=== PATIENT | female | born 1995 | race Caucasian/White ===

== ENCOUNTER 2018-04-04 18:35 | Emergency (ER) | payer MEDICAID, SELFPAY ==
[2018-04-04 18:42] VITALS: BP 161/82; PULSE 92; RESP 18; TEMP 36.7; O2SAT 98
--- NOTE | 2018-04-04 19:02 | W.ED.GENAD ---
Discharge Plan Disposition Patient Disposition: HOME Condition: Stable Discharge Details Chief Complaint: EarProblem Clinical Impression: Acute right otitis media Primary Care Provider: Saman Veras ED Provider: Hussain Perdomo Home Meds and New Rx's Prescriptions: New amoxicillin 875 mg tablet 875 mg PO BID Qty: 14 RF: 0 Continue levonorgestrel-ethinyl estrad [Introvale] 0.15 mg-30 mcg Tablets,Dose Pack,3 Month 1 tab PO DAILY RF: 0 Discharge Instructions Instructions: Otitis Media (ED) Additional Instructions: Please take antibiotic as prescribed and until complete and do not save your antibiotics. You may take [id number] pain therapy as needed for discomfort and follow-up with your primary care provider if not improving over the next week. Referrals: Saman Veras [Primary Care Provider] - (as needed for reassessment if not improving in 1 week) Discharge Data Discharge Date/Time-TO BE ENTERED AT DEPARTURE: 04/04/18 19:25 Medical Decision Making Patient presenting the emergency department for chief complaint of right ear pain. Patient states for the past week she has had upper respiratory nasal congestion. Over the past 2 days she has noted some fullness in her right ear and then this evening increase in discomfort. Physical exam is positive for right otitis media otherwise no other acute findings no signs of mastoiditis no other emergent concerns at this time. Patient placed on amoxicillin and told to take [id number]-[id number] pain medication as needed for discomfort. Patient follow-up with primary care if not improving over the next week or return for any new or significant worsening symptoms. After discussion of diagnosis and plan of care patient has no further needs, questions, or concerns and states clear understanding to return to the emergency department for any worsening symptoms. HPI General Mode of arrival: ambulatory. Date/Time Provider Initiated Documentation: 04/04/18 18:52. Limitations to Documentation: no limitations. Information obtained by: patient and RN notes reviewed. History of Present Illness 23 year old F presents to the emergency department with the chief complaint of right ear pain, described as moderate, with intensity rated at 6. Quality is described as aching, and is localized to the right (ear). Patient reports no radiation. Patient started experiencing this day(s) (2) and it has been constant. No relieving factors improve symptom(s), No exacerbating factors reported . Patient did receive the following treatments prior to arrival, none Related Data Home Medications Medication Instructions Recorded Confirmed amoxicillin 875 mg PO BID #14 tab 04/04/18 levonorgestrel-ethinyl estrad 1 tab PO DAILY 04/04/18 04/04/18 [Introvale] Previous Rx's Medication Instructions Recorded amoxicillin 875 mg PO BID #14 tab 04/04/18 Allergies Allergy/AdvReac Type Severity Reaction Status Date / Time sulfacetamide AdvReac Intermediate Itching Unverified 04/04/18 18:47 General Stated Complaint: EarProblem DG: 4 Review of Systems Constitutional Denies body ache(s), Denies chills, Denies fever(s), Denies headache(s) and Denies malaise Eyes Reports eye discharge ENT Reports as per HPI, Reports abnormal hearing, Denies dysphagia, Denies vertigo, Reports otalgia, Denies headache(s), Reports nasal congestion, Denies neck pain, Reports sinus pressure and Reports sore throat Cardiovascular Denies chest pain and Denies dyspnea Respiratory Denies dyspnea Gastrointestinal Denies dysphagia Musculoskeletal Denies joint swelling and Denies neck pain Integumentary/Breasts Denies rash Neurologic Reports abnormal hearing, Denies vertigo and Denies headache(s) [facility] Social History Smoking/Tobacco Use Status: Current every day Social History Smoking/Tobacco Use Status: Current every day Exam Const General: cooperative, comfortable and no acute distress Orientation: alert and awake [facility] Head: normal to inspection, normocephalic and atraumatic Ears: hearing grossly normal bilaterally, EAC's normal, mastoids normal and TM abnormal bulging on the right and erythematous on the right General nose exam: external nose normal Face and sinus: normal facial exam and sinuses nontender Mouth: oral mucosae normal, no drooling, no muffled voice and no trismus Throat: posterior oropharynx normal Neck Neck: normal visual inspection, full ROM, no lymphadenopathy, no meningeal signs, trachea midline and supple Resp Effort & Inspection: normal respiratory effort and able to speak in complete sentences Skin General skin exam: no rashes or lesions noted and dry skin (warm) Neuro General: alert, awake, oriented x3, gait normal and moves all extremities Cognition: normal cognition Speech: speech normal Course Vital Signs Temperature 36.7 C 04/04/18 18:42 Pulse 92 H 04/04/18 18:42 Respiratory Rate 18 04/04/18 18:42 Blood Pressure 161/82 H 04/04/18 18:42 Pulse Oximetry 98 04/04/18 18:42 Temperature 36.7 C 04/04/18 18:42 Temperature Source Skin 04/04/18 18:42 Pulse 92 H 04/04/18 18:42 Respiratory Rate 18 04/04/18 18:42 Respiratory Effort 04/04/18 18:42 Blood Pressure 161/82 H 04/04/18 18:42 Blood Pressure Position Sitting 04/04/18 18:42 Pulse Oximetry 98 04/04/18 18:42 Pain Level 6 04/04/18 18:42 Comment 04/04/18 18:42
[2018-04-04] MEDS: Amoxicillin 875 MG TAB PO (19:07)
--- NOTE | 2018-04-04 19:11 | ED.GENADUL_ITS ---
Discharge Plan Disposition Patient Disposition: HOME Condition: Stable Discharge Details Chief Complaint: EarProblem Clinical Impression: Acute right otitis media Primary Care Provider: Saman Veras ED Provider: Hussain Perdomo Home Meds and New Rx's Prescriptions: New amoxicillin 875 mg tablet 875 mg PO BID Qty: 14 RF: 0 Continue levonorgestrel-ethinyl estrad [Introvale] 0.15 mg-30 mcg Tablets,Dose Pack,3 Month 1 tab PO DAILY RF: 0 Discharge Instructions Instructions: Otitis Media (ED) Additional Instructions: Please take antibiotic as prescribed and until complete and do not save your antibiotics. You may take [id number] pain therapy as needed for discomfort and follow-up with your primary care provider if not improving over the next week. Referrals: Saman Veras [Primary Care Provider] - (as needed for reassessment if not improving in 1 week) Discharge Data Discharge Date/Time-TO BE ENTERED AT DEPARTURE: 04/04/18 19:25 Medical Decision Making Patient presenting the emergency department for chief complaint of right ear pain. Patient states for the past week she has had upper respiratory nasal congestion. Over the past 2 days she has noted some fullness in her right ear and then this evening increase in discomfort. Physical exam is positive for right otitis media otherwise no other acute findings no signs of mastoiditis no other emergent concerns at this time. Patient placed on amoxicillin and told to take [id number]-trybcsl pain medication as needed for discomfort. Patient follow-up with primary care if not improving over the next week or return for any new or significant worsening symptoms. After discussion of diagnosis and plan of care patient has no further needs, questions, or concerns and states clear understanding to return to the emergency department for any worsening symptoms. HPI General Mode of arrival: ambulatory . Date/Time Provider Initiated Documentation: 04/04/18 18:52 . Limitations to Documentation: no limitations . Information obtained by: patient and RN notes reviewed . History of Present Illness 23 year old F presents to the emergency department with the chief complaint of right ear pain, described as moderate, with intensity rated at 6. Quality is described as aching, and is localized to the right (ear). Patient reports no radiation. Patient started experiencing this day(s) (2) and it has been constant. No relieving factors improve symptom(s), No exacerbating factors reported . Patient did receive the following treatments prior to arrival, none Related Data Home Medications Medication Instructions Recorded Confirmed amoxicillin 875 mg PO BID #14 tab 04/04/18 levonorgestrel-ethinyl estrad 1 tab PO DAILY 04/04/18 04/04/18 [Introvale] Previous Rx's Medication Instructions Recorded amoxicillin 875 mg PO BID #14 tab 04/04/18 Allergies Allergy/AdvReac Type Severity Reaction Status Date / Time sulfacetamide AdvReac Intermediate Itching Unverified 04/04/18 18:47 General Stated Complaint: EarProblem DG: 4 Review of Systems Constitutional Denies body ache(s), Denies chills, Denies fever(s), Denies headache(s) and Denies malaise Eyes Reports eye discharge ENT Reports as per HPI, Reports abnormal hearing, Denies dysphagia, Denies vertigo, Reports otalgia, Denies headache(s), Reports nasal congestion, Denies neck pain , Reports sinus pressure and Reports sore throat Cardiovascular Denies chest pain and Denies dyspnea Respiratory Denies dyspnea Gastrointestinal Denies dysphagia Musculoskeletal Denies joint swelling and Denies neck pain Integumentary/Breasts Denies rash Neurologic Reports abnormal hearing, Denies vertigo and Denies headache(s) [facility] Social History Smoking/Tobacco Use Status: Current every day Social History Smoking/Tobacco Use Status: Current every day Exam Const General: cooperative, comfortable and no acute distress Orientation: alert and awake [facility] Head: normal to inspection, normocephalic and atraumatic Ears: hearing grossly normal bilaterally, EAC's normal, mastoids normal and TM abnormal bulging on the right and erythematous on the right General nose exam: external nose normal Face and sinus: normal facial exam and sinuses nontender Mouth: oral mucosae normal, no drooling, no muffled voice and no trismus Throat: posterior oropharynx normal Neck Neck: normal visual inspection, full ROM, no lymphadenopathy, no meningeal signs , trachea midline and supple Resp Effort & Inspection: normal respiratory effort and able to speak in complete sentences Skin General skin exam: no rashes or lesions noted and dry skin (warm) Neuro General: alert, awake, oriented x3, gait normal and moves all extremities Cognition: normal cognition Speech: speech normal Course Vital Signs Temperature 36.7 C 04/04/18 18:42 Pulse 92 H 04/04/18 18:42 Respiratory Rate 18 04/04/18 18:42 Blood Pressure 161/82 H 04/04/18 18:42 Pulse Oximetry 98 04/04/18 18:42 Temperature 36.7 C 04/04/18 18:42 Temperature Source Skin 04/04/18 18:42 Pulse 92 H 04/04/18 18:42 Respiratory Rate 18 04/04/18 18:42 Respiratory Effort 04/04/18 18:42 Blood Pressure 161/82 H 04/04/18 18:42 Blood Pressure Position Sitting 04/04/18 18:42 Pulse Oximetry 98 04/04/18 18:42 Pain Level 6 04/04/18 18:42 Comment 04/04/18 18:42
== END 2018-04-04 19:25 | disposition home or self-care (01) ==
LOC: ER 19:36
PROVIDERS: Emergency Provider Nurse Practitioner Family; PCP Family Medicine
DX: H66.91 Otitis media, unspecified, right ear (principal)
CPT/HCPCS: 99283

== ENCOUNTER 2018-06-09 11:36 | Emergency (ER) | payer MEDICAID, SELFPAY ==
--- NOTE | 2018-06-09 11:56 | NUR.NOTE ---
pt has had sore throat, fever 101+ left ear pain/pressure past 3 days
[2018-06-09 11:57] VITALS: BP 130/89; PULSE 99; RESP 16; TEMP 36.4; O2SAT 95
--- NOTE | 2018-06-09 12:24 | ED.GENADUL_ITS ---
Discharge Plan Disposition Patient Disposition: HOME Condition: Stable Discharge Details Chief Complaint: Fever Clinical Impression: Otitis media Primary Care Provider: Saman Veras ED Provider: Yesika Alanis Home Meds and New Rx's Prescriptions: New amoxicillin-pot clavulanate [Augmentin] 875-125 mg tablet 1 tab PO BID Qty: 19 RF: 0 Continued levonorgestrel-ethinyl estrad [Introvale] 0.15 mg-30 mcg Tablets,Dose Pack,3 Month 1 tab PO DAILY RF: 0 Discharge Instructions Instructions: Amoxicillin/Clavulanate Potassium (By mouth), Otitis Media (ED) Additional Instructions: Please return immediately to the emergency department if you develop any new or worsening symptoms or if you become otherwise concerned. It is extremely important that you make an appointment to be seen by your primary care doctor as soon as possible in follow-up for this visit Referrals: Saman Veras [Primary Care Provider] - Discharge Data Discharge Date/Time-TO BE ENTERED AT DEPARTURE: 06/09/18 13:21 Medical Decision Making Dc Vanegas is a 23-year-old woman with history of anxiety, recurrent ear infections presenting to the emergency department with left-sided ear pain. On exam patient is very well and nontoxic appearing. Normal oropharynx. Left TM appears infected. Mastoids normal bilaterally. Exam/history is not consistent with meningitis, mastoiditis, sepsis, abscess/other deep space infection, other acute emergent life-threatening etiology. Concern for otitis media. Plan for Augmentin. I had a lengthy discussion with the patient regarding return to emergency department precautions, home care, and importance of outpatient follow-up with her primary care doctor. Patient verbalized understanding of the plan and is amenable. Medical Records Medical records reviewed: Yes I reviewed the patient's medical records. HPI General Mode of arrival: ambulatory . Date/Time Provider Initiated Documentation: 06/09/18 12:23 . Limitations to Documentation: no limitations . Information obtained by: patient, RN notes reviewed and old records reviewed . HPI Narrative: Dc Vanegas is a 23 y/o woman with history of anxiety pre senting to the emergency department with left ear pain. Patient reports that she has had a history of recurrent ear infections as a child, and also as an adult. Last ear infections were approximate 1 year ago, and then again this past March. She reports that she has had several days of left-sided ear pain. Initially also had sore throat when her pain started, which is now resolved. Patient reports that she did have a fever yesterday to 101. No other fevers. She denies any other pain, difficulty swallowing, nausea/vomiting/diarrhea, weakness/tingling. Feels otherwise well and in her usual state of health. Has been eating and drinking as usual. Related Data Home Medications Medication Instructions Recorded Confirmed levonorgestrel-ethinyl estrad 1 tab PO DAILY 04/04/18 06/09/18 [Introvale] amoxicillin-pot clavulanate 1 tab PO BID #19 tab 06/09/18 [Augmentin] Previous Rx's Medication Instructions Recorded amoxicillin-pot clavulanate 1 tab PO BID #19 tab 06/09/18 [Augmentin] Allergies Allergy/AdvReac Type Severity Reaction Status Date / Time sulfacetamide AdvReac Intermediate Itching Unverified 06/09/18 12:00 General Stated Complaint: Fever DG: 3 Review of Systems Review of Systems Constitutional: denies fevers Eyes: denies eye pain ENT: denies facial pain, dental pain, reports ear pain, sore throat Cardiovascular: denies chest pain, edema Respiratory: denies SOB, cough GI: denies abdominal pain, vomiting, diarrhea : denies flank pain MSK: denies back pain, neck pain, arthralgias, myalgias Skin: denies rash Neuro: denies headaches, numbness, weakness PFSH Social History Smoking and Tabacco status: Current every day Exam Narrative Exam Narrative: Constitutional: well and phq-nupia-bqpkzyfeu, pleasant, conversing normally HENT: head atraumatic, normocephalic normal inspection, mucous membranes moist, normal posterior pharynx no erythema or edema, left TM injected, dull, bulging, left canal normal, right TM and canal normal, mastoids nontender to palpation and nonedematous bilaterally Eyes: conjunctiva normal, sclera normal, pupils 3mm b/l Neck: no stridor, normal ROM, trachea midline Resp: normal work of breathing, LCTAB Cardio: normal rate, normal rhythm, no murmur appreciated Skin: warm, dry, normal color, no rash Neuro: alert, not altered, grossly non-focal, normal tone Ext: Moving all extremities equally Psych: normal mood, normal affect, normal behavior Course Vital Signs Temperature 36.4 C L 06/09/18 11:57 Pulse 99 H 06/09/18 11:57 Respiratory Rate 16 06/09/18 11:57 Blood Pressure 130/89 06/09/18 11:57 Pulse Oximetry 95 06/09/18 11:57 Temperature 36.4 C L 06/09/18 11:57 Temperature Source Skin 06/09/18 11:57 Pulse 99 H 06/09/18 11:57 Respiratory Rate 16 06/09/18 11:57 Blood Pressure 130/89 06/09/18 11:57 Blood Pressure Position Sitting 06/09/18 11:57 Pulse Oximetry 95 06/09/18 11:57 Oxygen Delivery Method Room Air 06/09/18 11:57 Oxygen Flow Rate 0 06/09/18 11:57 Pain Level 5 06/09/18 11:57
[2018-06-09] MEDS: Amoxicillin 875/Clav. 125 TAB PO (13:19)
== END 2018-06-09 13:21 | disposition home or self-care (01) ==
LOC: ER 13:31
PROVIDERS: Emergency Provider Student in an Organized Health Care Education/Training Program; PCP Family Medicine
DX: H66.92 Otitis media, unspecified, left ear (principal); F17.210 Nicotine dependence, cigarettes, uncomplicated
CPT/HCPCS: 99283

== ENCOUNTER 2018-11-03 01:17 | Emergency (ER) | payer MEDICAID, SELFPAY ==
[2018-11-03] VITALS (20 sets, daily range): BP systolic 105–139; BP diastolic 70–91; PULSE 49–78; RESP 8–21; TEMP 36.5–36.7; O2SAT 94–100
--- NOTE | 2018-11-03 01:32 | ED.GENADUL_ITS ---
Discharge Plan Disposition Patient Disposition: HOME Condition: Improving Discharge Details Chief Complaint: Chest Pain Clinical Impression: Panic attack Primary Care Provider: Saman Veras ED Provider: Keira Joel Home Meds and New Rx's Prescriptions: Continued levonorgestrel-ethinyl estrad [Introvale] 0.15 mg-30 mcg Tablets,Dose Pack,3 Month 1 tab PO DAILY RF: 0 Discharge Instructions Instructions: Panic Attack (ED) Additional Instructions: Take the Ativan as needed and directed for any further symptoms similar to your panic attacks. Drink plenty fluids and get plenty of rest. Follow-up with your primary care doctor next week for reevaluation and to discuss medication management of your anxiety. Return immediately to the emergency department with any worsening or new concerning symptoms. Discharge Data Discharge Date/Time-TO BE ENTERED AT DEPARTURE: 11/03/18 03:10 Discharge Physician: Keira Joel Medical Decision Making 0130 --23-year-old female with a history of anxiety and panic attacks who presents the ED with a complaint of chest tightness, shortness of breath, facial and bilateral hand tingling that started 1 hour ago while laying in bed. EKG done on arrival notes a rate of 70, sinus and no acute ST-T wave ischemic changes. Vitals within normal limits. No tachycardia, hypoxia and patient is afebrile. She appears very anxious. Lungs clear to auscultation. Normal ENT exam. No focal deficits. Exam and history not consistent with ACS, pneumonia, PE or dissection. Exam and history consistent with anxiety/panic attack. Urine test negative. At this point in time with normal vitals and exam, do not see an indication for labs and imaging. Will give a dose of Ativan and reassess. 0240 --patient feels much better and she is requesting to go home. She was offered lab work and imaging if her symptoms do not improve but she is declining this and would like to go home. She denies any complaint of paresthesias, chest pain or shortness of breath. Vitals within normal limits. Patient instructed to call her primary care doctor tomorrow to schedule a follow-up appointment for reevaluation and for medication management of her anxiety. She states she had taken BuSpar in the past but it made her feel dizzy so she stopped it. She is instructed to return here if she has any worsening or new concerning symptoms. Medical Records Medical records reviewed: Yes I reviewed the patient's medical records. ECG Data Attestation: I personally reviewed and interpreted this ECG (s) as follows: Interpretation: Rate of 70, sinus, no acute ST T wave ischemic changes. QTc 425. QRS 90 HPI General Mode of arrival: ambulatory . Date/Time Provider Initiated Documentation: 11/03/18 01:31 . Limitations to Documentation: no limitations . Information obtained by: patient . HPI Narrative: Patient is a 23-year-old female who presents to the ED with complaint of bilateral hand tingling, chest tightness, shortness of breath and tingling in her face that started 1 hour ago while laying in bed. Patient states she went to bed feeling fine. Patient states she has a history of anxiety and states her symptoms feel similar to a previous panic attack. She states yesterday she drank a 10 alcoholic drinks over a period of 12 hours. She admits to a chronic cough which she states due to allergies. She denies any fever, vomiting, diarrhea, recent travel, recent surgery, leg pain or swelling. Related Data Home Medications Medication Instructions Recorded Confirmed levonorgestrel-ethinyl estrad 1 tab PO DAILY 04/04/18 11/03/18 [Introvale] Allergies Allergy/AdvReac Type Severity Reaction Status Date / Time sulfacetamide AdvReac Intermediate Itching Unverified 11/03/18 01:29 General Stated Complaint: Chest Pain DG: 3 Review of Systems Review of Systems All systems reviewed & are unremarkable except as noted in HPI and below Constitutional Reports as per HPI, Denies chills and Denies fever(s) Eyes Denies blurry vision ENT Denies dizziness, Denies sore throat and Denies throat swelling Cardiovascular Reports chest pain and Reports dyspnea Respiratory Denies cough and Reports dyspnea Gastrointestinal Denies abdominal pain, Denies diarrhea and Denies vomiting Genitourinary Denies hematuria and Denies dysuria Musculoskeletal Denies back pain and Reports numbness Integumentary/Breasts Denies lesions and Denies rash Neurologic Denies dizziness, Reports focal weakness and Reports numbness Allergic/Immunologic Denies throat swelling PFS Medical History Anxiety (Chronic) Surgical History History of ankle surgery (Acute) Social History Smoking/Tobacco Use Status: Current every day Tobacco Type: cigarettes Alcohol Intake: current Alcohol Intake frequency: a few times a month Drug use: Never Do you feel safe in your relationship?: Yes Exam Const General: cooperative, healthy appearing and anxious HENMT Head: normal to inspection Face and sinus: normal facial exam Eyes General: appearance normal, both eyes and all related structures Pupils: PERRL EOM: EOM intact bilaterally Neck Neck: normal visual inspection and No submandibular swelling Lymphatic: no lymphadenopathy noted Chest Chest: normal inspection of the chest and no tenderness Resp Effort & Inspection: normal respiratory effort and able to speak in complete sentences Auscultation: clear to auscultation bilaterally Cardio Rate: regular rate Rhythm: regular rhythm GI Inspection: normal to inspection Palpation: soft, not firm, not rigid and nontender Auscultation: normal bowel sounds Back/Spine/Pelvis Thoracic/Lumbar Spine: thoracic and lumbar spine normal to inspection Pelvis: no pain with anterior-posterior compression Skin General skin exam: no rashes or lesions noted Neuro General: alert, awake, oriented x3, gait normal and moves all extremities Cranial Nerves: CN's II-XI intact bilaterally Cognition: normal cognition Speech: speech normal Motor: muscle tone normal throughout and strength 5/5 throughout Sensory Exam: no sensory deficits noted Extrem General: normal to inspection, full ROM, normal capillary refill, no calf tenderness bilaterally and no edema Psych Appearance: grossly normal Mental Status: mental status grossly normal Speech and Movement: speech and movement normal Affect: normal affect Course Vital Signs Temperature 98.1 F 11/03/18 01:26 Pulse 60 11/03/18 01:26 Respiratory Rate 16 11/03/18 01:26 Blood Pressure 129/85 11/03/18 01:26 Pulse Oximetry 100 11/03/18 01:26 Temperature 98.1 F 11/03/18 01:26 Temperature Source Skin 11/03/18 01:26 Pulse 60 11/03/18 01:26 Respiratory Rate 16 11/03/18 01:26 Respiratory Effort Non-Labored 11/03/18 01:28 Blood Pressure 129/85 11/03/18 01:26 Blood Pressure Position Supine 11/03/18 01:26 Pulse Oximetry 100 11/03/18 01:26 Oxygen Delivery Method Room Air 11/03/18 01:26 Oxygen Flow Rate 0 11/03/18 01:26 Pain Level 8 11/03/18 01:26
[2018-11-03] MEDS: LORazepam 1 MG TAB PO (01:54)
[2018-11-03] MEDS: LORazepam 0.5 MG TAB 1 MG PO (03:09)
== END 2018-11-03 03:10 | disposition home or self-care (01) ==
LOC: ER 03:16
PROVIDERS: Emergency Provider Physician Assistant; PCP Family Medicine
DX: F41.0 Panic disorder [episodic paroxysmal anxiety] (principal); R20.2 Paresthesia of skin; R06.02 Shortness of breath; F17.210 Nicotine dependence, cigarettes, uncomplicated
CPT/HCPCS: 81025; 93005; 99284; 93010; 99285

== ENCOUNTER 2019-04-22 12:25 | Emergency (ER) | payer MEDICAID, SELFPAY ==
[2019-04-22 12:30] VITALS: BP 146/70; PULSE 87; RESP 16; TEMP 36.6; O2SAT 100
--- NOTE | 2019-04-22 12:39 | W.ED.GENAD ---
Discharge Plan Disposition Patient Disposition: HOME Condition: Stable Discharge Details Chief Complaint: Sorethroat Clinical Impression: Pharyngitis Primary Care Provider: Saman Veras ED Provider: Neftali Salazar Home Meds and New Rx's Prescriptions: New amoxicillin-pot clavulanate [Augmentin] 875-125 mg tablet 1 tab PO Q12H Qty: 20 RF: 0 Continued buspirone 10 mg Tablet 10 mg PO RF: 0 No Action levonorgestrel-ethinyl estrad [Introvale] 0.15 mg-30 mcg Tablets,Dose Pack,3 Month 1 tab PO DAILY RF: 0 Discharge Instructions Instructions: Pharyngitis (ED) Additional Instructions: if you still have discomfort in a week follow up with your primary care provider if you have difficulty swallowing liquids or breathing return to the emergency department Medical Decision Making 24 yo female comes in with several days of sore throat. She states she was on penicillin 2 weeks ago for strep through her pcp's office. Her throat pain returned again so came here for an eval. 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 Appears to be phrayngitis, will check for strep and if positive treat. ADvised f/u with pcp if not better within a week and return precautions given Differential Diagnosis Differential Diagnosis: pharyngitis, strep, rpa, waitstaff captain HPI General Mode of arrival: ambulatory. Date/Time Provider Initiated Documentation: 04/22/19 12:27. Limitations to Documentation: no limitations. Information obtained by: patient. History of Present Illness 24 year old F presents to the emergency department with the chief complaint of sore throat, described as moderate, Patient started experiencing this day(s) (2) and it has been constant. No relieving factors improve symptom(s), No exacerbating factors reported . Patient did receive the following treatments prior to arrival, none Related Data Home Medications Medication Instructions Recorded Confirmed levonorgestrel-ethinyl estrad 1 tab PO DAILY 04/04/18 04/22/19 [Introvale] amoxicillin-pot clavulanate 1 tab PO Q12H #20 tab 04/22/19 [Augmentin] buspirone 10 mg PO 12/18/19 Previous Rx's Medication Instructions Recorded amoxicillin-pot clavulanate 1 tab PO Q12H #20 tab 04/22/19 [Augmentin] Allergies Allergy/AdvReac Type Severity Reaction Status Date / Time sulfacetamide AdvReac Intermediate Itching Unverified 11/03/18 01:29 General Stated Complaint: Sorethroat DG: 4 Review of Systems All systems reviewed & are unremarkable except as noted in HPI and below Constitutional Constitutional: Denies chills and Denies fever(s) Cardiovascular Cardiovascular: Denies chest pain and Denies dyspnea Respiratory Respiratory: Denies cough and Denies dyspnea Gastrointestinal Gastrointestinal: Denies abdominal pain, Denies nausea and Denies vomiting Musculoskeletal Musculoskeletal: Denies joint swelling [facility] Social History Smoking/Tobacco Use Status: Current every day Tobacco Type: cigarettes Alcohol Intake: current Alcohol Intake frequency: a few times a month Drug use: Never Do you feel safe in your relationship?: Yes Exam Const General: no acute distress Orientation: alert HENMT Head: normal to inspection Ears: external ears normal General nose exam: external nose normal Mouth: moist mucous membranes Eyes General: appearance normal, both eyes and all related structures Neck Neck: normal visual inspection Resp Effort & Inspection: normal respiratory effort and able to speak in complete sentences Cardio Rate: regular rate Skin General skin exam: no rashes or lesions noted Neuro General: alert and oriented x3 Extrem General: normal to inspection Psych Mental Status: mental status grossly normal Course Vital Signs Vital signs: Vital Signs Temperature 36.6 C 04/22/19 12:30 Pulse 87 04/22/19 12:30 Respiratory Rate 16 04/22/19 12:30 Blood Pressure 146/70 H 04/22/19 12:30 Pulse Oximetry 100 04/22/19 12:30 Temperature 36.6 C 04/22/19 12:30 Temperature Source Temporal Artery Scan 04/22/19 12:30 Pulse 87 04/22/19 12:30 Respiratory Rate 16 04/22/19 12:30 Blood Pressure 146/70 H 04/22/19 12:30 Pulse Oximetry 100 04/22/19 12:30 Oxygen Delivery Method Room Air 04/22/19 12:30 Oxygen Flow Rate 0 04/22/19 12:30
== END 2019-04-22 12:48 | disposition home or self-care (01) ==
LOC: ER 13:03
PROVIDERS: Emergency Provider Emergency Medicine; PCP Family Medicine
DX: J02.0 Streptococcal pharyngitis (principal); F17.210 Nicotine dependence, cigarettes, uncomplicated
CPT/HCPCS: 87880; 99283

== ENCOUNTER 2019-06-29 03:20 | Emergency (ER) | payer MEDICAID, SELFPAY ==
[2019-06-29 03:25] VITALS: BP 135/82; PULSE 112; RESP 16; TEMP 36.9; O2SAT 97
--- NOTE | 2019-06-29 03:27 | ED.GENADUL_ITS ---
Discharge Plan Disposition Patient Disposition: HOME Condition: Stable Discharge Details Chief Complaint: RespSymp Clinical Impression: Influenza Primary Care Provider: Saman Veras ED Provider: Neftali Salazar Home Meds and New Rx's Prescriptions: New ondansetron 4 mg tablet,disintegrating 4 mg PO Q8H PRN (Reason: nausea and vomiting) Qty: 20 RF: 0 Continued buspirone 10 mg Tablet 10 mg PO RF: 0 Discharge Instructions Instructions: Influenza (ED) Additional Instructions: if you are not better within 5 days follow up with your primary care provider if you feel significantly more pain, difficulty breathing or feel more ill return to the emergency department Medical Decision Making 24 yo female who denies chronic medical problems comes in with chief complaint of body aches, chills, cough, n/v and fever intermittently to 103 for 3 days. 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 She denies any recent travel, drug use, does smoke and drinks occasionally. She arrives HD stable and afebrile, does have clear rhinorrhea on exam, clear lungs, soft nontender abdomen, normal oropharynx, no meningisumus and no severe headaches. 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 She Has no findings on exam or history to suggest sustainable [employer] faculty infection, pna, intrabdominal pathology. I did offer to provide IVF but she declined as she states she wants to go home and sleep and needs a work note. I provided the patient return precautions and advised to f/u with pcp if not better within a week Differential Diagnosis Differential Diagnosis: influenza, viral uri, pna HPI General Mode of arrival: ambulatory . Date/Time Provider Initiated Documentation: 06/29/19 03:20 . Limitations to Documentation: no limitations . Information obtained by: patient . History of Present Illness 24 year old F presents to the emergency department with the chief complaint of fever and body aches, described as moderate, Patient started experiencing this day(s) (3) and it has been intermittent. No relieving factors improve symptom(s), No exacerbating factors reported . Patient notes cough and nausea/vomiting. Patient did receive the following treatments prior to arrival, none Related Data Home Medications Medication Instructions Recorded Confirmed buspirone 10 mg PO 04/22/19 ondansetron 4 mg PO Q8H PRN #20 tab 06/29/19 Previous Rx's Medication Instructions Recorded ondansetron 4 mg PO Q8H PRN #20 tab 06/29/19 Allergies Allergy/AdvReac Type Severity Reaction Status Date / Time sulfacetamide AdvReac Intermediate Itching Unverified 11/03/18 01:29 General Stated Complaint: RespSymp DG: 4 Review of Systems All systems reviewed & are unremarkable except as noted in HPI and below Cardiovascular Cardiovascular: Denies chest pain and Denies dyspnea Respiratory Respiratory: Denies dyspnea Gastrointestinal Gastrointestinal: Denies abdominal pain Integumentary/Breasts Skin/Breast: Denies rash PFSH Social History Smoking/Tobacco Use Status: Current every day Tobacco Type: cigarettes Alcohol Intake: current Alcohol Intake frequency: a few times a month Drug use: Never Do you feel safe at home: Yes Do you feel safe in your relationship?: Yes Exam Const General: no acute distress Orientation: alert HENMT Head: normal to inspection Ears: external ears normal General nose exam: external nose normal Mouth: moist mucous membranes Eyes General: appearance normal, both eyes and all related structures Neck Neck: normal visual inspection Resp Effort & Inspection: normal respiratory effort and able to speak in complete sentences Cardio Rate: regular rate ('hr 98 on my exam) and tachycardic Skin General skin exam: no rashes or lesions noted Neuro General: alert and oriented x3 Extrem General: normal to inspection Psych Mental Status: mental status grossly normal Course Vital Signs Vital signs: Vital Signs Temperature 36.9 C 06/29/19 03:25 Pulse 112 H 06/29/19 03:25 Respiratory Rate 16 06/29/19 03:25 Blood Pressure 135/82 06/29/19 03:25 Pulse Oximetry 97 06/29/19 03:25 Temperature 36.9 C 06/29/19 03:25 Temperature Source Oral 06/29/19 03:25 Pulse 112 H 06/29/19 03:25 Respiratory Rate 16 06/29/19 03:25 Blood Pressure 135/82 06/29/19 03:25 Blood Pressure Position Sitting 06/29/19 03:25 Pulse Oximetry 97 06/29/19 03:25 Oxygen Delivery Method Room Air 06/29/19 03:25 Oxygen Flow Rate 0 06/29/19 03:25 Pain Level 6 06/29/19 03:25
[2019-06-29] MEDS: Ondansetron O.D.T. 4 MG TABEF, 3 TABS/BTL PO (03:31)
== END 2019-06-29 03:55 | disposition home or self-care (01) ==
PROVIDERS: Emergency Provider Emergency Medicine; PCP Family Medicine
DX: J10.1 Influenza due to other identified influenza virus with other respiratory manifestations (principal); R05 Cough
CPT/HCPCS: 99283

== ENCOUNTER 2019-06-30 17:05 | Emergency (ER) | payer MEDICAID, SELFPAY ==
[2019-06-30 17:17] VITALS: BP 115/70; PULSE 103; RESP 20; TEMP 38.7; O2SAT 99
--- NOTE | 2019-06-30 17:40 | W.ED.GENAD ---
Discharge Plan Disposition Patient Disposition: HOME Condition: Fair Discharge Details Chief Complaint: Fever Clinical Impression: Influenza Primary Care Provider: Saman Veras ED Provider: Mamie Thurston Home Meds and New Rx's Prescriptions: Continued buspirone 10 mg Tablet 10 mg PO DAILY RF: 0 ibuprofen 200 mg Capsule 200 mg PO PRN PRNRF: 0 acetaminophen [Tylenol Extra Strength] 500 mg Tablet 1,000 mg PO PRN PRNRF: 0 ondansetron 4 mg tablet,disintegrating 4 mg PO Q8H PRN (Reason: nausea and vomiting) Qty: 20 RF: 0 Discharge Instructions Instructions: Influenza (ED) Additional Instructions: Encourage water intake. Tylenol and ibuprofen as needed for discomfort and/or fevers. Please follow-up with primary care within a week for reevaluation. If you develop difficulty breathing, shortness of breath, inability stay hydrated or other new/worsening symptoms please seek care urgently once again. Stand Alone Forms: Work Release Referrals: Saman Veras [Primary Care Provider] - Discharge Data Discharge Date/Time-TO BE ENTERED AT DEPARTURE: 06/30/19 20:00 Medical Decision Making Patient is a 24-year-old female presenting today for reevaluation of influenza symptoms. Patient was seen here yesterday after 3 days of URI with body aches and fever. At that time, patient was diagnosed with influenza and discharged home. No Tamiflu was started as the patient was out of the timeline for treatment. She presents today for persistent symptoms. She reports that cough has been worsening. States the cough has been dry and non-productive. Denies any recent travel. No recent antibiotics. Patient past medical history significant for anxiety. No history of respiratory issues. On exam, patient appears fatigued but otherwise well and nontoxic. She does appear slightly dry. Lungs are clear. Normal cardiac exam. Given the progression of her symptoms, feel that labs x-ray are appropriate. Patient is febrile at 38 7 tachycardic at 103. Plan to give antipyretic and hydrate the patient. FINDINGS: Lungs: Normal pulmonary expansion. Pulmonary vasculature grossly normal. No infiltrates. Pleural space: No pleural effusion. No pneumothorax. Heart/Mediastinum: Heart size normal. No tracheal/mediastinal shift. Bones/joints: No acute osseous abnormalities are identified. IMPRESSION: No acute thoracic process. Labs reviewed. Patient was noted to have low potassium of 3.2. Small anion gap of 13, patient is receiving hydration and did appear dehydrated on exam. I did encourage potassium and calcium intake and dietary supplementation. I do not feel that p.o. would be tolerated well at this time but could be started in the morning. Patient is requesting discharge. He is feeling improved after hydration. Work note given at patient's request. She is requesting that I actually put a diagnosis of influenza on work note. She is given strict return precautions. Advised she follow-up with primary care for reevaluation. Within the next week. All of her questions and concerns were addressed and she agrees with this plan. HPI General Mode of arrival: ambulatory. Date/Time Provider Initiated Documentation: 06/30/19 17:26. Limitations to Documentation: no limitations. Information obtained by: patient and RN notes reviewed. History of Present Illness 24 year old F presents to the emergency department with the chief complaint of influenza, described as mild, with intensity rated at 3. Quality is described as aching (diffuse body aches), Patient started experiencing this day(s) (4) and it has been constant. No relieving factors improve symptom(s), No exacerbating factors reported . Patient notes chest pain (endorses pain with coughing), cough, fever/chills, loss of appetite and weakness (generalized fatigue and weakness); denies headaches, nausea/vomiting, rash and shortness of breath. Patient did receive the following treatments prior to arrival, other (tylenol at 1500) Related Data Home Medications Medication Instructions Recorded Confirmed buspirone 10 mg PO DAILY 04/22/19 ondansetron 4 mg PO Q8H PRN #20 tab 06/29/19 06/30/19 acetaminophen [Tylenol Extra 1,000 mg PO PRN PRN 06/30/19 06/30/19 Strength] ibuprofen 200 mg PO PRN PRN 06/30/19 06/30/19 Previous Rx's Medication Instructions Recorded ondansetron 4 mg PO Q8H PRN #20 tab 06/29/19 Allergies Allergy/AdvReac Type Severity Reaction Status Date / Time sulfacetamide AdvReac Intermediate Itching Unverified 11/03/18 01:29 General Stated Complaint: Fever DG: 3 Review of Systems Constitutional Constitutional: Reports as per HPI, Reports chills, Reports fatigue, Reports fever(s), Denies headache(s), Reports malaise and Reports poor appetite Eyes Eyes: Reports as per HPI, Denies eye discharge and Denies irritation ENT Ears, Nose, Mouth, and Throat: Reports as per HPI and Denies headache(s) Cardiovascular Cardiovascular: Reports as per HPI, Denies chest pain, Denies dyspnea and Denies dyspnea on exertion Respiratory Respiratory: Reports as per HPI, Denies change in phlegm color, Denies chest congestion, Reports cough, Denies excessive phlegm production, Reports pain on inspiration, Reports pain with cough, Denies dyspnea, Denies dyspnea on exertion, Denies stridor and Denies wheezing Gastrointestinal Gastrointestinal: Reports as per HPI, Denies abdominal pain, Denies change in bowel habits, Denies nausea and Denies vomiting Integumentary/Breasts Skin/Breast: Reports as per HPI and Denies rash Neurologic Neurologic: Reports as per HPI and Denies headache(s) Endocrine Endocrine: Reports fatigue Allergic/Immunologic Allergic/Immunologic: Denies wheezing [facility] Social History Smoking/Tobacco Use Status: Current every day Tobacco Type: cigarettes Alcohol Intake: current Alcohol Intake frequency: a few times a month Drug use: Never Do you feel safe at home: Yes Do you feel safe in your relationship?: Yes Exam Const General: cooperative, healthy appearing, uncomfortable (appears fatigued), no acute distress, well developed and well groomed Nutritional Appearance: average body habitus and well nourished Orientation: alert and awake [facility] Head: normal to inspection, normocephalic and atraumatic Ears: hearing grossly normal bilaterally, external ears normal and TM's normal bilaterally General nose exam: external nose normal and nares normal Face and sinus: normal facial exam, sinuses nontender and face symmetric Mouth: oral mucosae normal, lip normal, tongue normal, oropharynx normal and mucous membranes dry (patient appears dry) Teeth and gingiva: dentition normal Throat: posterior oropharynx normal, tonsils normal and uvula midline Eyes General: appearance normal, both eyes and all related structures Neck Neck: normal visual inspection, full ROM, no lymphadenopathy and no meningeal signs Resp Effort & Inspection: normal respiratory effort, able to speak in complete sentences and no respiratory distress Auscultation: clear to auscultation bilaterally, no rales, no rhonchi and no wheezes Cardio Rate: regular rate Rhythm: regular rhythm Heart Sounds: S1 normal and S2 normal Skin General skin exam: no rashes or lesions noted Neuro General: alert and awake Cognition: normal cognition Speech: speech normal Gait: normal gait Psych Appearance: grossly normal and well kempt Mental Status: mental status grossly normal Speech and Movement: speech and movement normal Course Vital Signs Vital signs: Vital Signs Temperature 38.7 C H 06/30/19 17:17 Pulse 103 H 06/30/19 17:17 Respiratory Rate 06/30/19 17:17 Blood Pressure 115/70 06/30/19 17:17 Pulse Oximetry 99 06/30/19 17:17 Temperature 38.7 C H 06/30/19 17:17 Temperature Source Temporal Artery Scan 06/30/19 17:17 Pulse 103 H 06/30/19 17:17 Respiratory Rate 20 06/30/19 17:17 Blood Pressure 115/70 06/30/19 17:17 Pulse Oximetry 99 06/30/19 17:17 Pain Level 3 06/30/19 17:17
--- NOTE | 2019-06-30 17:45 | DI.RAD_ITS ---
EXAM: XR CHEST 2V PA LATERAL CLINICAL HISTORY: cough. TECHNIQUE: 2D digital imaging was performed. COMPARISON: No exams were available for comparison FINDINGS: LUNGS: Clear. No pleural abnormality seen. HEART: Normal. MEDIASTINUM: Normal. OTHER FINDINGS:Normal. BONE:Normal. IMPRESSION: No acute pulmonary findings. DATA REPOSITORY: RADIATION DOSE DELIVERED:
[2019-06-30] MEDS: Ibuprofen 600 MG TAB PO (18:28)
[2019-06-30] MEDS: Normal Saline 1,000 ML 1000 ML IV (18:28)
--- NOTE | 2019-06-30 19:01 | DI.VRAD_ITS ---
PROCEDURE INFORMATION: Exam: XR Chest, 2 Views Exam date and time: 06/30/2019 6:43 PM Age: 24 years old Clinical indication: Cough TECHNIQUE: Imaging protocol: XR of the chest Views: 2 views. COMPARISON: No relevant prior studies available. FINDINGS: Lungs: Normal pulmonary expansion. Pulmonary vasculature grossly normal. No infiltrates. Pleural space: No pleural effusion. No pneumothorax. Heart/Mediastinum: Heart size normal. No tracheal/mediastinal shift. Bones/joints: No acute osseous abnormalities are identified. IMPRESSION: No acute thoracic process. Dictated and Authenticated by: Nghia Ryder MD. Ordering:JANICE Hatch MD
[2019-06-30 19:07] LABS: Abs Immature Grans 0.01 k/cumm (0.0-0.09); Absolute Basophil Count 0.01 k/cumm (0.0-0.2); Absolute Lymphocyte Count 0.86 k/cumm (1.2-3.4); Absolute Monocyte Count 0.38 k/cumm (0.11-0.7); Absolute Neutrophil Count 2.23 k/cumm (1.2-6.7); Basophils % 0.3; HCT 37.8 % (36.0-46.0); HGB 12.7 g/dL (12.0-15.5); Immature Grans % 0.3 %; Lymphocytes % 24.6; Mean Corp. HGB Concentration 33.6 g/dL (32.0-36.0); Mean Corpuscular Hemoglobin 31.1 pg (27.0-33.0); Mean Corpuscular Volume 92.6 fL (80-95); Mean Platelet Volume 11.2 fL (8.0-11.0); Monocytes % 10.9; Neutrophils % 63.9; Platelet Count 155 x1000/uL (130-400); RBC 4.08 m/cumm (4.00-5.20); RBC Distribution Width 13.2 % (11.7-14.6); White Blood Cell Count 3.49 k/cumm (4.4-10.8)
[2019-06-30 19:21] LABS: ALT 30 U/L (14-59); AST 34 U/L (15-37); Albumin 3.3 g/dL (3.4-5.0); Alkaline Phosphatase 35 U/L (46-116); Anion Gap 13.9 mmol/L (3-11); BUN 8 mg/dL (7-18); Bilirubin, Total 0.3 mg/dL (0.2-1.0); CO2 20.1 mmol/L (21.0-32.0); CREATININE 0.88 mg/dL (0.55-1.02); Calcium 7.5 mg/dL (8.5-10.1); Chloride 107 mmol/L (98-107); Glucose 84 mg/dL (74-106); Potassium 3.2 mmol/L (3.5-5.1); Sodium 141 mmol/L (136-145); Total Protein 6.3 g/dL (6.4-8.2)
[2019-06-30 19:43] VITALS: BP 115/70; PULSE 77; RESP 18; TEMP 36.5; O2SAT 98
[2019-06-30 19:58] VITALS: BP 115/70; PULSE 103; RESP 18; TEMP 36.5; O2SAT 98
== END 2019-06-30 20:00 | disposition home or self-care (01) ==
PROVIDERS: Emergency Provider Physician Assistant; PCP Family Medicine
DX: J11.1 Influenza due to unidentified influenza virus with other respiratory manifestations (principal)
CPT/HCPCS: 80053; 96360; 96361; 99284; 71046; 85025; 99283

== ENCOUNTER 2020-03-11 11:55 | Emergency (ER) | payer MEDICAID, SELFPAY ==
[2020-03-11 12:10] VITALS: BP 159/104; PULSE 99; RESP 18; TEMP 36.5; O2SAT 100
--- NOTE | 2020-03-11 12:53 | ED.GENADUL_ITS ---
Discharge Plan Disposition Patient Disposition: HOME Condition: Stable Discharge Details Clinical Impression: Pharyngitis Primary Care Provider: Saman Veras ED Provider: Keira Joel Home Meds and New Rx's Prescriptions: Continued levonorgestrel-ethinyl estrad [Jolessa] 0.15 mg-30 mcg (91) tablets,dose pack,3 month 1 tab PO DAILY RF: 0 Discharge Instructions Instructions: Pharyngitis (ED) Additional Instructions: Drink plenty of fluids and get plenty of rest. Alternate tylenol and motrin as needed and directed for pain. You can also try [id number] Chloraseptic spray, Sucrets or other sore throat lozenges to help with pain. Follow-up with your primary care doctor in 1 week. Return to the emergency department with any worsening or new concerning symptoms. Discharge Data Discharge Physician: Keira Joel Medical Decision Making 25-year-old female presents with sore throat for the past few days. Sent here for evaluation to rule out strep throat. Her BP is elevated otherwise vitals within normal limits and she appears nontoxic. She has posterior pharyngeal erythema but without exudate, edema, peritonsillar abscess and her uvula is midline without drooling or trismus. Rapid strep negative. Suspect viral URI, viral pharyngitis, postnasal drip, allergies. We will send for throat culture. Patient advised on the importance of symptomatic treatment including fluids, Tylenol and Motrin. Advised to follow up with the primary care doctor for re-evaluation. Usual and customary return precautions given prior to discharge. Medical Records Medical records reviewed: Yes I reviewed the patient's medical records. HPI General Mode of arrival: ambulatory . Date/Time Provider Initiated Documentation: 03/11/20 12:52 . Limitations to Documentation: no limitations . Information obtained by: patient . HPI Narrative: Patient is a 25-year-old female with a history of anxiety presents for sore throat and left ear pain for the past 2 days, now ear pain resolving and still complaining of sore throat. 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 Patient denies any fever, neck pain or headache. She states she has been eating and drinking normally. Related Data Home Medications Medication Instructions Recorded Confirmed levonorgestrel-ethinyl estrad 1 tab PO DAILY 03/11/20 03/11/20 [Lex] Allergies Allergy/AdvReac Type Severity Reaction Status Date / Time sulfacetamide AdvReac Intermediate Itching Unverified 03/11/20 12:14 General Stated Complaint: Sorethroat DG: 4 Review of Systems All systems reviewed & are unremarkable except as noted in HPI and below Constitutional Constitutional: Reports as per HPI, Denies chills and Denies fever(s) Eyes Eyes: Denies blurry vision ENT Ears, Nose, Mouth, and Throat: Denies dizziness, Reports sore throat and Denies throat swelling Cardiovascular Cardiovascular: Denies chest pain and Denies dyspnea Respiratory Respiratory: Denies cough and Denies dyspnea Gastrointestinal Gastrointestinal: Denies abdominal pain, Denies diarrhea and Denies vomiting Genitourinary Genitourinary: Denies hematuria and Denies dysuria Musculoskeletal Musculoskeletal: Denies back pain and Denies numbness Integumentary/Breasts Skin/Breast: Denies lesions and Denies rash Neurologic Neurologic: Denies dizziness, Denies localized weakness and Denies numbness Allergic/Immunologic Allergic/Immunologic: Denies throat swelling [facility] Medical History (Updated 03/11/20 @ 13:13 by Keira Joel DO) Anxiety Surgical History History of ankle surgery Social History Smoking/Tobacco Use Status: Current every day Tobacco Type: cigarettes Smoking risk assessment performed?: Yes Alcohol Intake: current Alcohol Intake frequency: a few times a month Drug use: Never Do you feel safe at home: Yes Do you feel safe in your relationship?: Yes Exam Const General: cooperative, healthy appearing and no acute distress HENMT Head: normal to inspection Ears: hearing grossly normal bilaterally, external ears normal and TM's normal bilaterally General nose exam: external nose normal Face and sinus: normal facial exam Mouth: oral mucosae normal Throat: uvula midline and posterior oropharynx abnormal erythema; no exudates Eyes General: appearance normal, both eyes and all related structures Pupils: PERRL EOM: EOM intact bilaterally Neck Neck: normal visual inspection and No submandibular swelling Lymphatic: no lymphadenopathy noted Chest Chest: normal inspection of the chest and no tenderness Resp Effort & Inspection: normal respiratory effort and able to speak in complete sentences Auscultation: clear to auscultation bilaterally Cardio Rate: regular rate Rhythm: regular rhythm Skin General skin exam: no rashes or lesions noted Neuro General: patient alert, patient awake and patient oriented x3 Cognition: normal cognition Speech: speech normal Motor: muscle tone normal throughout Sensory Exam: no sensory deficits noted Extrem General: normal to inspection, full ROM, capillary refill normal, no calf tenderness bilaterally and no edema Psych Appearance: grossly normal Mental Status: mental status grossly normal Speech and Movement: speech and movement normal Affect: normal affect Course Vital Signs Vital signs: Vital Signs Temperature 97.7 F 03/11/20 12:10 Pulse 99 H 03/11/20 12:10 Respiratory Rate 18 03/11/20 12:10 Blood Pressure 159/104 H 03/11/20 12:10 Pulse Oximetry 100 03/11/20 12:10 Temperature 97.7 F 03/11/20 12:10 Temperature Source Temporal Artery Scan 03/11/20 12:10 Pulse 99 H 03/11/20 12:10 Respiratory Rate 18 03/11/20 12:10 Respiratory Effort 03/11/20 12:23 Blood Pressure 159/104 H 03/11/20 12:10 Pulse Oximetry 100 03/11/20 12:10 Oxygen Delivery Method Room Air 03/11/20 12:10 Oxygen Flow Rate 0 03/11/20 12:10 Pain Level 6 03/11/20 12:10 Comment 03/11/20 12:10 Lab/Test Results Lab/Test Results: POC Strep Test-JONNY(Rapid) Start: 03/11/20 12:27 Freq: Status: Active Protocol: Document 03/11/20 12:28 (Rec: 03/11/20 12:28 [id number]) Strep test-JONNY(Rapid)-POC POC-Strep test-JONNY (Rapid) Negative POC-Strep test-JONNY (Rapid) Negative
== END 2020-03-11 13:42 | disposition home or self-care (01) ==
PROVIDERS: Emergency Provider Physician Assistant; PCP Family Medicine
DX: J02.8 Acute pharyngitis due to other specified organisms (principal); H92.02 Otalgia, left ear; F17.210 Nicotine dependence, cigarettes, uncomplicated
CPT/HCPCS: 87880; 99282; 99283

== ENCOUNTER 2020-03-13 01:42 | Emergency (ER) | payer MEDICAID, SELFPAY ==
[2020-03-13 01:47] VITALS: BP 136/87; PULSE 99; RESP 22; TEMP 36.6; O2SAT 97
[2020-03-13] MEDS: diphenhydrAMINE 50 MG/ML VIAL (01:50)
--- NOTE | 2020-03-13 02:02 | W.ED.GENAD ---
Discharge Plan Disposition Patient Disposition: HOME Condition: Good Discharge Details Clinical Impression: Allergic reaction, Itching Primary Care Provider: Saman Veras ED Provider: Tyler Perez Home Meds and New Rx's Prescriptions: New epinephrine [EpiPen 2-Beto] 0.3 MG/0.3 ML auto-injector 0.3 mg IJ PRN PRNQty: 2 RF: 5 prednisone 50 MG tablet 50 mg PO DAILY Qty: 5 RF: 0 loratadine 10 mg capsule 10 mg PO DAILY Qty: 30 RF: 0 hydroxyzine HCl 25 mg tablet 25 mg PO TID PRNQty: 30 RF: 0 Continued levonorgestrel-ethinyl estrad [Jolessa] 0.15 mg-30 mcg (91) tablets,dose pack,3 month 1 tab PO DAILY RF: 0 Discharge Instructions Instructions: General Allergic Reaction (ED) Additional Instructions: At this time it appears that you have an allergic reaction, however it is unclear and to what the causative agent was. Sometimes your body can have an isolated reaction like this without any significant stimulation, other x2 dietary or dermal exposure. Please follow-up with the ENT/adult health clinical nurse specialist for allergy testing. In the meantime please make sure to have an EpiPen on you at all times as precaution. Please take the hydroxyzine as needed for itching. Please take the loratadine every day for the next few days to limit any allergic reaction symptoms. Please also take the prednisone every day to make sure there is no return of the allergic reaction. If you notice any worsening of your symptoms, or any new symptoms such as vomiting, diarrhea, fever, chills, shortness of breath, chest pain, numbness, weakness, or fainting , please return immediately to the emergency department for reevaluation. Please follow up with your primary care provider as soon as possible for reassessment and reevaluation. As always, it was a pleasure participating in your medical care today. Referrals: Saman Veras [Primary Care Provider] - Dl Daniel DO [OSTEOPATHIC DOCTOR] - Mirza Nix MD [ [facility] STAFF PHYSICIAN] - Medical Decision Making 25-year-old female who is currently on control presents today for evaluation of itching all over. Patient states that she woke up this evening and was itchy all over. She had one episode of vomiting and diarrhea. She does state that she has a history of irritable bowel syndrome but the vomiting is notably atypical. She states that the itching was present in her legs, arms, chest, back face and neck. She denies any difficulty swallowing or difficulty breathing. She denies any new medications, soaps, detergents, foods. She did not have any seafood this evening, and she denies any atypical taste. She did have a sore throat recently and was seen and assessed here in the ED, strep test was negative at that time, she has not started on any antibiotics. She has no other complaints this time. She denies any other sick contacts. Physical exam demonstrates a notably itchy and is actively scratching female, blotchy macular rash all over her chest abdomen upper and lower extremities. It is blanching. Not raised. Diameter most of these lesions is less than a centimeter. No oral lesions. No clear indications as to what caused her symptomatology but it does certainly appear to resemble an allergic reaction of sorts. With her episode of vomiting, her whole body rash, diarrhea, face concerning for me. I do feel that she would benefit from IM epinephrine, Benadryl, famotidine, and Solu-Medrol mild fluids. Will gently rehydrate monitor closely and reassess. No signs of severe anaphylaxis requiring airway management. No signs of oropharyngeal compromise whatsoever at this time. 4 AM After prolonged observation. Here in the ED the patient has complete resolution of her symptoms, she has no more itching, rash is completely resolved. She feels well and would like to go home. We discussed signs and symptoms concerning for return of symptomatology that would merit return to the ED. We will give the patient recommendations for steroid burst, as well as continued loratadine daily and Atarax as needed for itching. I have extensively reviewed the treatment plan and discharge instructions with the patient. I have addressed all patient concerns at this time. The patient was made aware of what symptoms to monitor for that would warrant a return to the emergency department. Discussed the plan with the patient, they demonstrate verbal understanding and agreement with our assessment and plan at this time. HPI General Date/Time Provider Initiated Documentation: 03/13/20 01:43. HPI Narrative: 25-year-old female who is currently on control presents today for evaluation of itching all over. Patient states that she woke up this evening and was itchy all over. She had one episode of vomiting and diarrhea. She does state that she has a history of irritable bowel syndrome but the vomiting is notably atypical. She states that the itching was present in her legs, arms, chest, back face and neck. She denies any difficulty swallowing or difficulty breathing. She denies any new medications, soaps, detergents, foods. She did not have any seafood this evening, and she denies any atypical taste. She did have a sore throat recently and was seen and assessed here in the ED, strep test was negative at that time, she has not started on any antibiotics. She has no other complaints this time. She denies any other sick contacts. Related Data Home Medications Medication Instructions Recorded Confirmed levonorgestrel-ethinyl estrad 1 tab PO DAILY 03/11/20 03/13/20 [Ayeshalessa] epinephrine [Epipen 2-Beto] 0.3 mg IJ PRN PRN #2 auto.injct 03/13/20 hydroxyzine HCl 25 mg PO TID PRN #30 tab 03/13/20 loratadine 10 mg PO DAILY #30 cap 03/13/20 prednisone 50 mg PO DAILY #5 tab 03/13/20 Previous Rx's Medication Instructions Recorded epinephrine [Epipen 2-Beto] 0.3 mg IJ PRN PRN #2 auto.injct 03/13/20 hydroxyzine HCl 25 mg PO TID PRN #30 tab 03/13/20 loratadine 10 mg PO DAILY #30 cap 03/13/20 prednisone 50 mg PO DAILY #5 tab 03/13/20 Allergies Allergy/AdvReac Type Severity Reaction Status Date / Time sulfacetamide AdvReac Intermediate Itching Unverified 03/13/20 01:55 General Stated Complaint: RashLesion DG: 2 Review of Systems All systems reviewed & are unremarkable except as noted in HPI and below [facility] Medical History (Updated 03/13/20 @ 02:21 by Tyler Perez DO) Anxiety Surgical History History of ankle surgery Social History Smoking/Tobacco Use Status: Current every day Tobacco Type: cigarettes Smoking risk assessment performed?: Yes Alcohol Intake: current Alcohol Intake frequency: a few times a week Drug use: Occasionally Substance use type: marijuana Do you feel safe at home: Yes Do you feel safe in your relationship?: Yes Exam Narrative Exam Narrative: 1.Const: Well-nourished, Well-developed, appearing stated age 2.Eyes: PERRL, no conjunctival injection, and symmetrical lids. 3.ENT: Atraumatic external nose and ears. Moist MM. Neck: Symmetric, trachea midline, No thyromegaly. No erythema, edema, lesions or swelling in the posterior oropharynx. 4.CVS: +S1/S2, No murmurs or gallops. Peripheral pulses 2+ and equal in all extremities. Brisk capillary refill in all extremities. 5.RESP: Unlabored respiratory effort. Clear to auscultation bilaterally. No wheezes rales or rhonchi 6.GI: Soft, Nontender/Nondistended, No hepatosplenomegaly. No guarding or rebound. 7.MSK: Normocephalic/Atraumatic, Extremities w/o deformity or ttp No cyanosis or clubbing, Normal movement of all extremities 8.Skin: Warm, Dry. Mild diffuse splotchy redness secondary to scratching, as well as mild flat hives noted over the chest abdomen and back arms and right leg. No oral lesions, no conjunctival injection. Negative Nikolsky sign. No large vesicles or bulla. No palpable purpura. No oral lesions. No mucosal lesions. No evidence of severe cellulitis. No evidence of vaccine preventable rash. 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 Sensation grossly intact, no focal neurologic deficits. 10.Psych: (AAO) x3. Appropriate mood and affect Course Vital Signs Vital signs: Vital Signs Temperature 36.6 C 03/13/20 01:47 Pulse 99 H 03/13/20 01:47 Respiratory Rate 22 03/13/20 01:47 Blood Pressure 136/87 03/13/20 01:47 Pulse Oximetry 97 03/13/20 01:47 Temperature 36.6 C 03/13/20 01:47 Temperature Source Temporal Artery Scan 03/13/20 01:47 Pulse 99 H 03/13/20 01:47 Respiratory Rate 22 03/13/20 01:47 Respiratory Effort Non-Labored 03/13/20 01:53 Blood Pressure 136/87 03/13/20 01:47 Blood Pressure Position Sitting 03/13/20 01:47 Pulse Oximetry 97 03/13/20 01:47 Oxygen Delivery Method Room Air 03/13/20 01:47 Oxygen Flow Rate 0 03/13/20 01:47
[2020-03-13] MEDS: Normal Saline 1,000 ML 1000 ML IV (02:05)
[2020-03-13] MEDS: hydrOXYzine HCL 25 MG TAB PO (02:13)
[2020-03-13] MEDS: methylPREDNISolone SUCC 125 MG VIAL IVP (02:14)
[2020-03-13] MEDS: EPINEPHrine 1 MG/ML AMP pres-free (02:15)
[2020-03-13 03:10] VITALS: BP 106/53; PULSE 81; RESP 16; O2SAT 97
--- NOTE | 2020-03-13 04:09 | NUR.NOTE ---
Addendum entered by Loly Rivero 03/14/20 08:51: Referral faxed Saturday. 03/14/2020. Loly Rivero Original Note: Nursing Note: referal sent to ent 03/13/20
[2020-03-13] MEDS: EPINEPHrine 0.3 MG KIT IM (04:33)
== END 2020-03-13 04:45 | disposition home or self-care (01) ==
PROVIDERS: Emergency Provider Student in an Organized Health Care Education/Training Program; PCP Family Medicine
DX: T78.49XA Other allergy, initial encounter (principal); R21 Rash and other nonspecific skin eruption; L29.9 Pruritus, unspecified; R11.2 Nausea with vomiting, unspecified
CPT/HCPCS: 96361; 96372; 96374; 96375; 99284; J0171; J1200; J2930

== ENCOUNTER 2020-05-08 11:26 | Emergency (ER) | payer MEDICAID, SELFPAY ==
[2020-05-08 11:35] VITALS: BP 166/106; PULSE 116; RESP 20; TEMP 36.7; O2SAT 99
--- NOTE | 2020-05-08 11:51 | ED.GENADUL_ITS ---
Discharge Plan Disposition Patient Disposition: HOME Condition: Improving Discharge Details Clinical Impression: Laceration of finger of left hand Primary Care Provider: Saman Veras ED Provider: Rickey Magdaleno Home Meds and New Rx's Prescriptions: Continued levonorgestrel-ethinyl estrad [Jolessa] 0.15 mg-30 mcg (91) tablets,dose pack,3 month 1 tab PO DAILY RF: 0 epinephrine [EpiPen 2-Beto] 0.3 MG/0.3 ML auto-injector 0.3 mg IJ PRN PRNQty: 2 RF: 5 loratadine 10 mg capsule 10 mg PO DAILY Qty: 30 RF: 0 hydroxyzine HCl 25 mg tablet 25 mg PO TID PRNQty: 30 RF: 0 Discharge Instructions Instructions: Finger Laceration (ED) Additional Instructions: Leave current dressing in place for 72 hours. Keep hand dry by using a glove while bathing. After 3 days, remove external dressing and replace with Band-Aid. Anticipate 7 to 8 days until healing and Steri-Strips can be removed. Return for fever, redness, foul-smelling discharge from the wound or any other acute concerns. Medical Decision Making 25-year-old female cut the left ring finger while grading vegetables in her kitchen. There is a small curvilinear laceration measuring approximately three quarters of 1 cm at the distal tip of the left ring finger. Sensation is intact, capillary refill is less than 2 seconds. She is anxious with heart rate and blood pressure. Patient's tetanus was updated. She was repaired with Steri-Strips and Band-Aid. She is stable for outpatient management and understands indications to return to the ER. HPI General Mode of arrival: ambulatory . Date/Time Provider Initiated Documentation: 05/08/20 11:37 . Limitations to Documentation: no limitations . Information obtained by: patient . History of Present Illness 25 year old F presents to the emergency department with the chief complaint of Finger laceration, described as mild, Quality is described as dull and constant, and is localized to the left and upper extremity. Patient reports no radiation. Patient started experiencing this minute(s) and it has been constant. No relieving factors improve symptom(s), No exacerbating factors reported . Patient did receive the following treatments prior to arrival, none Related Data Home Medications Medication Instructions Recorded Confirmed levonorgestrel-ethinyl estrad 1 tab PO DAILY 03/11/20 05/08/20 [Lex] epinephrine [EpiPen 2-Beto] 0.3 mg IJ PRN PRN #2 auto.injct 03/13/20 05/08/20 hydroxyzine HCl 25 mg PO TID PRN #30 tab 03/13/20 05/08/20 loratadine 10 mg PO DAILY #30 cap 03/13/20 05/08/20 Previous Rx's Medication Instructions Recorded epinephrine [EpiPen 2-Beto] 0.3 mg IJ PRN PRN #2 auto.injct 03/13/20 hydroxyzine HCl 25 mg PO TID PRN #30 tab 03/13/20 loratadine 10 mg PO DAILY #30 cap 03/13/20 Allergies Allergy/AdvReac Type Severity Reaction Status Date / Time sulfacetamide AdvReac Intermediate Itching Unverified 05/08/20 11:40 General Stated Complaint: Laceration DG: 4 Review of Systems Narrative: States she believes her tetanus is out of date [facility] Medical History (Updated 05/08/20 @ 11:55 by Rickey Magdaleno MD) Anxiety Surgical History History of ankle surgery Social History Smoking/Tobacco Use Status: Current every day Tobacco Type: cigarettes Smoking risk assessment performed?: Yes Alcohol Intake: current Alcohol Intake frequency: a few times a week Drug use: Occasionally Substance use type: marijuana Do you feel safe at home: Yes Do you feel safe in your relationship?: Yes Exam Narrative Exam Narrative: GEN: awake, alert, oriented 3. Pleasant, well groomed, interactive. HEAD: Normocephalic, atraumatic ENT: Mucous membranes moist, oropharynx unremarkable, External ear exam unremarkable EXT: Full ROM, no edema, no rash. Left ring finger with distal curvilinear shallow laceration approximately three quarters of 1 cm the penetrates just through the depth of the dermis. Sensation intact. Capillary refill less than 2 seconds. Normal motor function Neuro: Grossly normal neurologic exam, conversant, interactive. Psych: Speech fluent, thoughts congruent, affect anxious Course Vital Signs Vital signs: Vital Signs Temperature 36.7 C 05/08/20 11:35 Pulse 116 H 05/08/20 11:35 Respiratory Rate 20 05/08/20 11:35 Blood Pressure 166/106 H 05/08/20 11:35 Pulse Oximetry 99 05/08/20 11:35 Temperature 36.7 C 05/08/20 11:35 Temperature Source Skin 05/08/20 11:35 Pulse 116 H 05/08/20 11:35 Respiratory Rate 20 05/08/20 11:35 Respiratory Effort Non-Labored 05/08/20 11:40 Blood Pressure 166/106 H 05/08/20 11:35 Blood Pressure Position Sitting 05/08/20 11:35 Pulse Oximetry 99 05/08/20 11:35 Oxygen Delivery Method Room Air 05/08/20 11:35 Oxygen Flow Rate 0 05/08/20 11:35
[2020-05-08] MEDS: Tetanus & Diphtheria Tox,ADULT 0.5 ML VIAL IM (12:21)
== END 2020-05-08 12:26 | disposition home or self-care (01) ==
PROVIDERS: Emergency Provider Emergency Medicine; PCP Family Medicine
DX: S61.215A Laceration without foreign body of left ring finger without damage to nail, initial encounter (principal); W27.4XXA Contact with kitchen utensil, initial encounter
CPT/HCPCS: 90471; 99284; 99282

== ENCOUNTER 2021-01-05 05:32 | Emergency (ER) | payer MEDICAID, SELFPAY ==
--- NOTE | 2021-01-05 05:35 | ED.GENADUL_ITS ---
Discharge Plan Disposition Patient Disposition: HOME Condition: Improving Discharge Details Clinical Impression: Pruritus Primary Care Provider: Saman Veras ED Provider: Jair Manzo [place] Meds and New Rx's Prescriptions: Continued epinephrine [EpiPen 2-Beto] 0.3 MG/0.3 ML auto-injector 0.3 mg IJ PRN PRNQty: 2 RF: 5 cetirizine 10 mg tablet 10 mg PO DAILY RF: 0 montelukast 10 mg tablet 10 mg PO BID RF: 0 fluticasone propionate 50 mcg/actuation spray,suspension 2 spray INTRANASAL DAILY RF: 0 Changed hydroxyzine HCl 25 mg tablet See Rx Instructions .ROUTE .COMPLEX PRNQty: 20 RF: 0 Discharge Instructions Additional Instructions: Contact Dr. Daniel today regarding further hydroxyzine use prior to allergy testing. Return to ED for worsening allergic symptoms especially trouble breathing, throat swelling, fainting, other concerns. Referrals: Dl Daniel DO [OSTEOPATHIC DOCTOR] - Medical Decision Making Will attempt to control pruritus with her short acting hydroxyzine so that she may attempt allergy testing tomorrow as scheduled. Pretty significant relief of symptoms with 50 mg of hydroxyzine. Will prescribe more but patient to check with Dr. Daniel regarding use before allergy testing. Return to ED for worsening symptoms. HPI General Mode of arrival: ambulatory . Date/Time Provider Initiated Documentation: 01/05/21 05:35 . Limitations to Documentation: no limitations . Information obtained by: patient and RN notes reviewed . HPI Narrative: Patient presents to ED with generalized pruritis. She had to stop her allergy medications in preparation of allergy testing tomorrow. Overnight she has developed intense pruritis and cannot stop itching. She has some intermittent SOB that she thinks is more anxiety related than anything. She has had a few areas of rash but mostly just the pruritis. She has been on hydroxyzine in the past with better results than diphenhydramine. Related Data Home Medications Medication Instructions Recorded Confirmed epinephrine [EpiPen 2-Beto] 0.3 mg IJ PRN PRN #2 auto.injct 03/13/20 01/05/21 cetirizine 10 mg PO DAILY 01/05/21 01/05/21 fluticasone propionate 2 spray INTRANASAL DAILY 01/05/21 01/05/21 hydroxyzine HCl See Rx Instructions .ROUTE 01/05/21 01/05/21 .COMPLEX PRN #20 tab montelukast 10 mg PO BID 01/05/21 01/05/21 Previous Rx's Medication Instructions Recorded epinephrine [EpiPen 2-Beto] 0.3 mg IJ PRN PRN #2 auto.injct 03/13/20 hydroxyzine HCl See Rx Instructions .ROUTE 01/05/21 .COMPLEX PRN #20 tab Allergies Allergy/AdvReac Type Severity Reaction Status Date / Time sulfacetamide AdvReac Intermediate Itching Unverified 01/05/21 05:41 General DG: 4 Review of Systems Narrative: As documented in HPI otherwise negative as below. Const: no fever, chills, weakness Resp: no cough, pleuritic pain CV: no CP, diaphoresis, edema, syncope GI: no abdominal pain, nausea, vomiting, diarrhea Neuro: no headache, numbness, focal weakness, confusion PFSH Medical History (Updated 01/05/21 @ 06:23 by Jair Manzo MD) Anxiety Surgical History History of ankle surgery Social History Smoking/Tobacco Use Status: Current every day Tobacco Type: cigarettes Smoking risk assessment performed?: Yes Alcohol Intake: current Alcohol Intake frequency: a few times a week Drug use: Occasionally Substance use type: marijuana Do you feel safe at home: Yes Do you feel safe in your relationship?: Yes Exam Narrative Exam Narrative: Const: WDWN female in NAD. HEENT: NC/AT. Normal facial exam. Normal OP without edema. Eyes: Normal conjunctiva and sclera. Neck: Supple. Trachea midline. Lungs: Normal respiratory effort. Lungs are clear. Cor: RRR without murmur/gallop. Neuro: A+O x 3. Normal speech, mentation, gait. Cranial nerves II - XII grossly intact. No gross motor or sensory deficit. Ext: No C/C/E. Skin: Warm and diaphoretic with just a few patches of hive like rash.
[2021-01-05 05:36] VITALS: BP 122/92; PULSE 95; RESP 18; TEMP 36.5; O2SAT 100
[2021-01-05] MEDS: hydrOXYzine PAMOATE 25 MG CAP 50 MG PO (05:52)
[2021-01-05 06:22] VITALS: BP 103/70; PULSE 78; RESP 16; O2SAT 98
== END 2021-01-05 06:31 | disposition home or self-care (01) ==
PROVIDERS: Emergency Provider Emergency Medicine; PCP Family Medicine
DX: L29.8 Other pruritus (principal)
CPT/HCPCS: 99283

== ENCOUNTER 2021-03-29 13:33 | Outpatient (CLI) | payer MEDICAID, SELFPAY ==
--- NOTE | 2021-03-29 15:25 | DI.RAD_ITS ---
Exam(s) XR CHEST 2V PA LATERAL EXAM: XR CHEST 2V PA LATERAL CLINICAL HISTORY: CHEST PAIN, R07.9 TECHNIQUE: 2D digital imaging was performed. COMPARISON: CR,XR XR CHEST 2V PA LATERAL from 06/30/2019 FINDINGS: The heart is not enlarged. The lungs are clear and well expanded. No pleural effusion seen. Mediastin al contours appear intact. IMPRESSION: Normal chest. RADIATION DOSE DELIVERED: Total DLP
== END 2021-03-29 13:53 ==
PROVIDERS: PCP Family Medicine; Visit Provider Family Medicine
DX: R07.9 Chest pain, unspecified (principal)
CPT/HCPCS: 71046

== ENCOUNTER 2021-09-06 00:55 | Outpatient (CLI) | payer MEDICAID, SELFPAY ==
--- NOTE | 2021-09-06 | DI.RAD_ITS ---
Exam(s) XR SCOLIOSIS T-L SPINE EXAM: XR SCOLIOSIS T-L SPINE CLINICAL HISTORY: Scoliosis evaluation. TECHNIQUE: 2D digital imaging was performed. Standing AP and lateral views were performed from abov e the frontal sinuses through the lesser trochanters. COMPARISON: CR XR CHEST 2V PA LATERAL from 03/29/2021 FINDINGS: Scoliosis: No significant scoliosis is identified. Vertebrae: No anomalies seen. No compression fracture is identified. Mild leftward curvature of the spine in the thoracic region. Moderate rightward rotoscoliosis at may tered at L2-3. Pelvis: Hip joint spaces are well maintained. There is no visible leg length discrepancy. SI joints are unremarkable. Normal bowel gas pattern. Chest: Normal heart size. Clear lung brar. IMPRESSION: Biconvex thoracolumbar scoliosis. DATA REPOSITORY: RADIATION DOSE DELIVERED:
== END 2021-09-06 01:15 ==
PROVIDERS: PCP Family Medicine; Visit Provider Family Medicine
DX: M41.85 Other forms of scoliosis, thoracolumbar region (principal)
CPT/HCPCS: 72081

== ENCOUNTER 2021-09-06 18:35 | Outpatient (CLI) | payer MEDICAID, SELFPAY ==
[2021-09-06 17:05] LABS: Abs Immature Grans 0.02 10^3/uL (0.0-0.06); Absolute Basophil Count 0.04 10^3/uL (0.0-0.2); Absolute Eosinophil Count 0.06 10^3/uL (0.0-0.7); Absolute Monocyte Count 0.59 10^3/uL (0.1-0.8); Absolute Neutrophil Count 5.35 10^3/uL (1.2-6.7); Basophils % 0.5; Eosinophils % 0.8; Immature Grans % 0.3; Lymphocytes % 19.8; MCH 32.7 pg (27.0-33.0); MCHC 34.1 % (32.0-36.0); MCV 96 fL (80-95); MPV 10.5 fL (8.0-11.0); Monocytes % 7.8; Neutrophils % 70.8; Platelet Count 253 10^3/uL (130-400); RBC 4.28 10^6/uL (3.93-5.22); RDW 11.8 % (11.7-14.6); RDW-SD 41.2 fL; WBC 7.56 10^3/uL (4.4-10.8)
[2021-09-06 17:10] LABS: ESR 1 mm/hr (0-20)
[2021-09-06 18:17] LABS: ALT 23 U/L (14-59); AST 16 U/L (15-37); Albumin 4.6 g/dL (3.4-5.0); Alkaline Phosphatase 44 U/L (46-116); Anion Gap 10.8 mmol/L (3-11); BUN 13 mg/dL (7-18); Bilirubin, Total 0.7 mg/dL (0.2-1.0); C-Reactive Protein 0.08 mg/dL (0.0-0.3); CO2 25.2 mmol/L (21.0-32.0); CREATININE 0.9 mg/dL (0.55-1.02); Chloride 99 mmol/L (98-107); Glucose 79 mg/dL (74-106); Potassium 3.7 mmol/L (3.5-5.1); Sodium 135 mmol/L (136-145); TSH 1.56 uIU/mL (0.36-3.74); TSH (W/Ref FT4) 1.59 uIU/mL (0.36-3.74)
[2021-09-08 14:30] LABS: Clam IgE <0.35 kU/L; Corn-Food IgE <0.35 kU/L; Milk, IgE <0.35 kU/L; Oyster IgE <0.35 kU/L; Peanut IgE <0.10 kU/L (<0.70); Scallop IgE <0.35 kU/L; Shrimp IgE <0.35 kU/L; Soybean IgE <0.35 kU/L
[2021-09-08 14:39] LABS: Beef IgE <0.35 kU/L; Crab IgE <0.35 kU/L; Lobster IgE <0.35 kU/L
[2021-09-11 11:53] LABS: Cacao/Cocoa, IgE <0.35 kU/L; Egg Whole IgE <0.10 kU/L; Food-Seafood Panel <0.35 kU/L
[2021-09-11 16:10] LABS: IgA 253 mg/dL (85-499); Interpretation (See Note); Tissue Transglutaminase IgA <1.2 U/mL (<4.0)
[2021-09-11 16:16] LABS: ANA Interpretation Positive (Negative); ANA Titer Pattern 1:160 Speckled
== END 2021-09-06 18:36 | disposition home or self-care (01) ==
LOC: LBO 18:36
PROVIDERS: PCP Family Medicine; Visit Provider Physician Assistant
DX: L50.8 Other urticaria (principal); Z91.09 Other allergy status, other than to drugs and biological substances; L27.2 Dermatitis due to ingested food; Z83.2 Family history of diseases of the blood and blood-forming organs and certain disorders involving the immune mechanism
CPT/HCPCS: 36415; 80053; 82784; 83516; 85652; 86003; 84443; 85025; 86038; 86140

== ENCOUNTER 2021-09-13 13:58 | Outpatient (CLI) | payer MEDICAID, SELFPAY ==
[2021-09-13 22:52] LABS: Thyroglobulin Antibody <15 U/mL (<=60); Thyroperoxidase Antibody <28 U/mL (<=60)
== END 2021-09-13 13:59 | disposition home or self-care (01) ==
LOC: LBO 13:59
PROVIDERS: PCP Family Medicine; Visit Provider Physician Assistant
DX: L29.9 Pruritus, unspecified (principal); L50.8 Other urticaria; Z91.09 Other allergy status, other than to drugs and biological substances; L27.2 Dermatitis due to ingested food; Z83.2 Family history of diseases of the blood and blood-forming organs and certain disorders involving the immune mechanism
CPT/HCPCS: 86376

== ENCOUNTER 2022-01-02 04:03 | Emergency (ER) | payer MEDICAID, SELFPAY ==
[2022-01-02 04:07] VITALS: BP 149/97; PULSE 100; RESP 16; TEMP 36.5; O2SAT 99
--- NOTE | 2022-01-02 04:08 | ED.GENADUL_ITS ---
Discharge Plan Disposition Patient Disposition: HOME Condition: Good Discharge Details Clinical Impression: Pharyngitis Primary Care Provider: Saman Veras ED Provider: Jair Manzo Sparks Meds and New Rx's Prescriptions: No Action bupropion HCl 150 mg tablet sustained-release 12 hr 300 mg PO DAILY epinephrine [EpiPen 2-Beto] 0.3 MG/0.3 ML auto-injector 0.3 mg IJ PRN PRNQty: 2 5RF cetirizine 10 mg tablet 10 mg PO DAILY Label Comments: TAKE 1 TABLET BY MOUTH EVERY DAY montelukast 10 mg tablet 10 mg PO BID Label Comments: TAKE 1 TABLET BY MOUTH EVERY DAY IN THE EVENING fluticasone propionate 50 mcg/actuation spray,suspension 2 spray INTRANASAL DAILY Label Comments: INSTILL 2 PUFFS IN EACH NOSTRIL ONCE A DAY AFTER SINUS RINSE FOR 30 DAYS hydroxyzine HCl 25 mg tablet See Rx Instructions .ROUTE .COMPLEX PRNQty: 20 0RF Rx Instructions: 25-50mg po q6-8h prn pruritis norethindrone (contraceptive) 0.35 mg tablet 1 tab Label Comments: TAKE 1 TABLET BY MOUTH EVERY DAY Discharge Instructions Instructions: Pharyngitis (ED) Additional Instructions: You were seen for a sore throat and loss of voice which is usually viral in nature. Your rapid strep was negative but a culture is pending. COVID swab has been sent. Decadron should help with your pain and discomfort over the next 12 to 24 hours. You may continue use of ibuprofen and acetaminophen to help with pain. Drink plenty of fluids to keep yourself hydrated. Follow-up with primary care later this week if no improvement. Return to ED with high fever, difficulty breathing, inability to swallow, other concerns. Medical Decision Making Patient presenting with sore throat as well as loss of voice. Reports daughter diagnosed with strep in the ED over the weekend. Patient denies fever, cough, difficulty breathing. She looks well and oropharynx reveals no exudate or swelling. Rapid strep is negative. Given lack of fever, exudate, significant adenopathy will wait for culture before treating for strep. COVID swab sent though patient reports negative home test yesterday. She is fully vaccinated. She is dosed with Decadron to help with the inflammation and pain. May continue ibuprofen or acetaminophen. Push fluids to keep hydrated. Follow-up with primary care if not improving by end of week. Return precautions provided. HPI General Mode of arrival: ambulatory . Date/Time Provider Initiated Documentation: 01/02/22 04:08 . Limitations to Documentation: no limitations . Information obtained by: patient and RN notes reviewed . HPI Narrative: Patient presents to ED with complaint of sore throat and loss of voice. Patient reports symptoms began 4 days ago. She felt like she was getting better over the weekend but then seemed to get worse in the next 24 hours. She is having difficulty swallowing because of pain. She has no fever, cough, shortness of breath. She denies headache, congestion, earache. She is vaccinated for COVID. She denies any GI symptoms. Reports that her daughter was diagnosed with strep in the ED over the weekend. Related Data Home Medications Medication Instructions Recorded Confirmed epinephrine 0.3 mg/0.3 mL 0.3 mg (0.3 mL) IJ PRN PRN ##2 03/13/20 01/02/22 injection, auto-injector (EpiPen 2-Beto) cetirizine 10 mg tablet 10 mg PO DAILY 01/05/21 01/02/22 fluticasone propionate 50 2 spray intranasal DAILY 01/05/21 01/02/22 mcg/actuation nasal spray,suspension hydroxyzine HCl 25 mg tablet See Rx Instructions .Route 01/05/21 01/02/22 .COMPLEX PRN #20 tabs montelukast 10 mg tablet 10 mg PO BID 01/05/21 01/02/22 bupropion HCl 150 mg tablet,12 hr 300 mg PO DAILY 11/23/21 01/02/22 sustained-release norethindrone (contraceptive) 0.35 1 tab 01/02/22 mg tablet Previous Rx's Medication Instructions Recorded epinephrine 0.3 mg/0.3 mL 0.3 mg (0.3 mL) IJ PRN PRN ##2 03/13/20 injection, auto-injector (EpiPen 2-Beto) hydroxyzine HCl 25 mg tablet See Rx Instructions .Route 01/05/21 .COMPLEX PRN #20 tabs Allergies Allergy/AdvReac Type Severity Reaction Status Date / Time sulfacetamide AdvReac Intermediate Itching Unverified 01/02/22 04:16 General DG: 4 Review of Systems Narrative: 09/16 Review of Systems completed and is negative except as stated above in HPI (Systems reviewed: Const, Resp, CV, GI, Neuro) PFSH All Active Problems Pharyngitis (Acute) Environmental allergies (Acute) Pruritus (Acute) Post-nasal drip (Acute) Chronic rhinitis (Acute) Influenza (Acute) Medical History Anxiety Surgical History History of ankle surgery Social History Smoking/Tobacco Use Status: Current every day Tobacco Type: cigarettes and e- cigarettes Smoking risk assessment performed?: Yes Alcohol Intake: current Alcohol Intake frequency: a few times a week Drug use: Occasionally Substance use type: marijuana Do you feel safe at home: Yes Do you feel safe in your relationship?: Yes Exam Narrative Exam Narrative: Const: WDWN female in NAD. HEENT: NC/AT. Normal facial exam. TMs clear bilaterally. Oral pharyngeal erythema but no exudate, ulcerations, swelling. Eyes: Normal conjunctiva and sclera. Neck: Supple. Trachea midline. Minimal shotty anterior adenopathy Lungs: Normal respiratory effort. Lungs are clear. Cor: RRR without murmur/gallop. Neuro: A+O x 3. Normal speech, mentation, gait. Cranial nerves II - XII grossly intact. No gross motor or sensory deficit. Ext: No C/C/E. Skin: Warm and dry without rash.
[2022-01-02] MEDS: Dexamethasone 4 MG TAB 8 MG PO (04:30)
[2022-01-03 11:13] LABS: COVID-19 RT-PCR UVMMC Result Negative (Negative)
--- NOTE | 2022-01-03 13:03 | NUR.NOTE ---
patient advised of negative covid test results.
== END 2022-01-02 04:40 | disposition home or self-care (01) ==
PROVIDERS: Emergency Provider Emergency Medicine; PCP Family Medicine
DX: J02.9 Acute pharyngitis, unspecified (principal); F17.210 Nicotine dependence, cigarettes, uncomplicated; F17.290 Nicotine dependence, other tobacco product, uncomplicated; Z20.822 Contact with and (suspected) exposure to COVID-19
CPT/HCPCS: 87880; 99283; U0003; 87081; 99284; J8540

== ENCOUNTER 2022-03-16 14:08 | Emergency (ER) | payer MEDICAID, SELFPAY ==
[2022-03-16 14:54] VITALS: BP 140/92; PULSE 98; RESP 17; TEMP 36.6; O2SAT 98
[2022-03-16 15:06] LABS: Bilirubin Moderate (Negative); Blood Large (Negative); Clarity Cloudy (Clear); Glucose Negative (Negative); Ketones 80 mg/dL (Negative); Leukocyte Esterase Moderate (Negative); Nitrite Negative (Negative); Specific Gravity >= 1.030 (1.005-1.025); pH 6.5 (5-8)
[2022-03-16 15:16] LABS: Bacteria Many HPF (Negative); C & S Indicated? No/Sq. Contamination; Casts Negative LPF (Negative); Crystals Negative HPF (Negative); Epithelial Cells Many HPF (Negative); Mucus Moderate (Negative)
[2022-03-16 15:27] LABS: Abs Immature Grans 0.07 10^3/uL (0.0-0.06); Absolute Basophil Count 0.08 10^3/uL (0.0-0.2); Absolute Eosinophil Count 0.07 10^3/uL (0.0-0.7); Absolute Lymphocyte Count 1.31 10^3/uL (1.2-3.4); Absolute Monocyte Count 0.79 10^3/uL (0.1-0.8); Basophils % 0.5; Eosinophils % 0.4; HCT 40.2 % (36.0-46.0); HGB 13.7 g/dL (11.2-15.7); Immature Grans % 0.4; MCH 32.9 pg (27.0-33.0); MCHC 34.1 % (32.0-36.0); MCV 96 fL (80-95); MPV 10.1 fL (8.0-11.0); Monocytes % 4.8; Neutrophils % 85.9; Platelet Count 324 10^3/uL (130-400); RBC 4.17 10^6/uL (3.93-5.22); RDW 11.8 % (11.7-14.6); RDW-SD 41.8 fL; WBC 16.41 10^3/uL (4.4-10.8)
[2022-03-16] MEDS: Famotidine 20 MG/2 ML VIAL IVP (15:30)
[2022-03-16] MEDS: Normal Saline 1,000 ML 1000 ML IV ×2 (15:30→16:25)
[2022-03-16] MEDS: Normal Saline 50 ML 400 ML (15:30)
[2022-03-16] MEDS: Normal Saline Flush 10 ML SYR IVP ×2 (15:31→16:26)
[2022-03-16] MEDS: Ondansetron 4 MG/2 ML VIAL IVP (15:31)
[2022-03-16] MEDS: Sucralfate 1 GM TAB PO (15:31)
--- NOTE | 2022-03-16 15:31 | ED.GENADUL_ITS ---
Discharge Plan Disposition Patient Disposition: HOME Condition: Stable Discharge Details Clinical Impression: Abdominal pain, vomiting, and diarrhea Primary Care Provider: Saman Veras ED Provider: Brady Waddell Home Meds and New Rx's Prescriptions: No Action bupropion HCl 150 mg tablet sustained-release 12 hr 300 mg PO DAILY epinephrine [EpiPen 2-Beto] 0.3 MG/0.3 ML auto-injector 0.3 mg IJ PRN PRNQty: 2 5RF cetirizine 10 mg tablet 10 mg PO DAILY Label Comments: TAKE 1 TABLET BY MOUTH EVERY DAY fluticasone propionate 50 mcg/actuation spray,suspension 2 spray INTRANASAL DAILY Label Comments: INSTILL 2 PUFFS IN EACH NOSTRIL ONCE A DAY AFTER SINUS RINSE FOR 30 DAYS hydroxyzine HCl 25 mg tablet See Rx Instructions .ROUTE .COMPLEX PRNQty: 20 0RF Rx Instructions: 25-50mg po q6-8h prn pruritis norethindrone (contraceptive) 0.35 mg tablet 1 tab PO DAILY Label Comments: TAKE 1 TABLET BY MOUTH EVERY DAY Discharge Instructions Instructions: Enteritis (ED) Additional Instructions: Please follow-up with your primary care physician. Please return to the emergency department for any worsening symptoms. Medical Decision Making <Keira Joel, DO - Last Filed: 03/16/22 16:19> 27-year-old female with a history of daily alcohol use presents with nausea, vomiting, loose stools, burning upper chest and aching epigastric pain since this morning. She admits to drinking at least 7 alcoholic drinks last night. Heart rate and blood pressure mildly elevated. Patient appears uncomfortable and appears to have intermittent abdominal spasms on brief evaluation in the waiting room. Her urine test was negative. Her abdomen is soft and nontender. Suspect GERD, gastritis or PUD. We will place an IV, bolus IV fluids, screening labs, urinalysis. Labs reviewed. White blood cell count 16. Potassium 3.4. Normal bilirubin, liver enzymes and lipase. Urinalysis notes 10-20 WBCs and blood but appears contaminated. Patient reassessed and she felt much better. Shortly after reevaluation, patient states her pain and nausea has returned. Considering her leukocytosis persistent pain, will obtain CT abdomen pelvis. We will give a dose of IV Dilaudid, IV Phenergan, additional IV fluid bolus. Case endorsed to Dr. Uli Marlow to follow-up on repeat urinalysis, CT and reassessment after meds. Medical Records Medical records reviewed: Yes I reviewed the patient's medical records. <Brady Waddell MD - Last Filed: 03/16/22 18:12> 27-year-old female with a history of daily alcohol use presents with nausea, vomiting, loose stools, burning upper chest and aching epigastric pain since this morning. She admits to drinking at least 7 alcoholic drinks last night. Heart rate and blood pressure mildly elevated. Patient appears uncomfortable and appears to have intermittent abdominal spasms on brief evaluation in the waiting room. Her urine test was negative. Her abdomen is soft and nontender. Suspect GERD, gastritis or PUD. We will place an IV, bolus IV fluids, screening labs, urinalysis. Labs reviewed. White blood cell count 16. Potassium 3.4. Normal bilirubin, liver enzymes and lipase. Urinalysis notes 10-20 WBCs and blood but appears contaminated. Patient reassessed and she felt much better. Shortly after reevaluation, patient states her pain and nausea has returned. Considering her leukocytosis persistent pain, will obtain CT abdomen pelvis. We will give a dose of IV Dilaudid, IV Phenergan, additional IV fluid bolus. Case endorsed to Dr. Uli Marlow to follow-up on repeat urinalysis, CT and reassessment after meds. 18: 09 patient resting comfortably no acute distress. Feeling better after medications. Repeat UA likely also contaminated. Patient has no urinary symptomatology at this time. Mild enteritis. Patient does have history of IBS. Home care instructions return precautions given HPI <Keira Joel DO - Last Filed: 03/16/22 16:19> General Mode of arrival: ambulatory . Date/Time Provider Initiated Documentation: 03/16/22 14:11 . Limitations to Documentation: no limitations . Information obtained by: patient . HPI Narrative: Patient is a 27-year-old female with a history of daily alcohol use who presents with nausea, intermittent vomiting, loose stools, burning upper chest and epigastric pain since this morning. Patient states she initially started with a sensation of burning in her throat and upper chest at 9 AM. She states she then developed dull aching epigastric pain. She states she started feeling nausea with intermittent vomiting of whole milk she tried to relieve her symptoms. She states her stools have been loose and brown. She denies any real bleeding or black stools. She denies any hematemesis. She states she usually drinks 2 to 3 glasses of wine daily but last night she drank 4 hard seltzers and 3 shots. She states she also vapes and smokes daily marijuana. She denies any fever, difficulty breathing or urinary symptoms. Related Data Home Medications Medication Instructions Recorded Confirmed epinephrine 0.3 mg/0.3 mL 0.3 mg (0.3 mL) IJ PRN PRN ##2 03/13/20 03/16/22 injection, auto-injector (EpiPen 2-Beto) cetirizine 10 mg tablet 10 mg PO DAILY 01/05/21 03/16/22 fluticasone propionate 50 2 spray intranasal DAILY 01/05/21 03/16/22 mcg/actuation nasal spray,suspension hydroxyzine HCl 25 mg tablet See Rx Instructions .Route 01/05/21 03/16/22 .COMPLEX PRN #20 tabs bupropion HCl 150 mg tablet,12 hr 300 mg PO DAILY 11/23/21 03/16/22 sustained-release norethindrone (contraceptive) 0.35 1 tab PO DAILY 01/02/22 03/16/22 mg tablet Previous Rx's Medication Instructions Recorded epinephrine 0.3 mg/0.3 mL 0.3 mg (0.3 mL) IJ PRN PRN ##2 03/13/20 injection, auto-injector (EpiPen 2-Beto) hydroxyzine HCl 25 mg tablet See Rx Instructions .Route 01/05/21 .COMPLEX PRN #20 tabs Allergies Allergy/AdvReac Type Severity Reaction Status Date / Time sulfacetamide AdvReac Intermediate Itching Unverified 03/16/22 14:56 General Stated Complaint: Abd Prob DG: 3 Review of Systems <Keira Joel DO - Last Filed: 03/16/22 16:19> All systems reviewed & are unremarkable except as noted in HPI and below Constitutional Constitutional: Reports as per HPI, Denies chills and Denies fever(s) Eyes Eyes: Denies blurry vision ENT Ears, Nose, Mouth, and Throat: Denies dizziness, Denies sore throat and Denies throat swelling Cardiovascular Cardiovascular: Denies chest pain and Denies dyspnea Respiratory Respiratory: Denies cough and Denies dyspnea Gastrointestinal Gastrointestinal: Reports abdominal pain, Reports diarrhea, Reports nausea and Reports vomiting Genitourinary Genitourinary: Denies hematuria and Denies dysuria Musculoskeletal Musculoskeletal: Denies back pain and Denies numbness Integumentary/Breasts Skin/Breast: Denies lesions and Denies rash Neurologic Neurologic: Denies dizziness, Denies localized weakness and Denies numbness Allergic/Immunologic Allergic/Immunologic: Denies throat swelling PFSH <Keira Joel DO - Last Filed: 03/16/22 16:19> All Active Problems (Updated 03/16/22 @ 16:18 by Keira Joel DO) Abdominal pain, vomiting, and diarrhea (Acute) Environmental allergies (Acute) Pruritus (Acute) Post-nasal drip (Acute) Chronic rhinitis (Acute) Influenza (Acute) Medical History (Updated 03/16/22 @ 16:18 by Keira Joel DO) Anxiety Surgical History History of ankle surgery Social History Smoking/Tobacco Use Status: Current every day Tobacco Type: cigarettes and e- cigarettes Smoking risk assessment performed?: Yes Alcohol Intake: current Alcohol Intake frequency: 0-2 drinks per day Alcohol type: beer, wine and hard liquor Drug use: Occasionally Substance use type: marijuana Do you feel safe at home: Yes Do you feel safe in your relationship?: Yes Exam <Keira Joel DO - Last Filed: 03/16/22 16:19> Const General: cooperative and no acute distress Orientation: alert, awake and oriented x3 HENMT Head: normal to inspection Face and sinus: normal facial exam Eyes General: appearance normal, both eyes and all related structures Pupils: PERRL EOM: EOM intact bilaterally Neck Neck: normal visual inspection and No submandibular swelling Lymphatic: no lymphadenopathy noted Chest Chest: normal inspection of the chest and no tenderness Resp Effort & Inspection: normal respiratory effort and able to speak in complete sentences Auscultation: clear to auscultation bilaterally Cardio Rate: regular rate Rhythm: regular rhythm GI Inspection: normal to inspection Palpation: soft, not firm, not rigid and nontender Auscultation: hypoactive bowel sounds Back/Spine/Pelvis Thoracic/Lumbar Spine: thoracic and lumbar spine normal to inspection Pelvis: no pain with anterior-posterior compression Skin General skin exam: no rashes or lesions noted Neuro General: patient alert, patient awake and patient oriented x3 Cognition: normal cognition Speech: speech normal Motor: muscle tone normal throughout Sensory Exam: no sensory deficits noted Extrem General: normal to inspection, full ROM, capillary refill normal, no calf tenderness bilaterally and no edema Psych Appearance: grossly normal Mental Status: mental status grossly normal Speech and Movement: speech and movement normal Affect: normal affect Course <Keira Joel, DO - Last Filed: 03/16/22 16:19> Vital Signs Vital signs: Vital Signs Temperature 97.9 F 03/16/22 14:54 Pulse 98 H 03/16/22 14:54 Respiratory Rate 17 03/16/22 14:54 Blood Pressure 140/92 H 03/16/22 14:54 Pulse Oximetry 98 03/16/22 14:54 Temperature 97.9 F 03/16/22 14:54 Temperature Source Tympanic 03/16/22 14:54 Pulse 98 H 03/16/22 14:54 Respiratory Rate 17 03/16/22 14:54 Blood Pressure 140/92 H 03/16/22 14:54 Blood Pressure Position Sitting 03/16/22 14:54 Pulse Oximetry 98 03/16/22 14:54 Oxygen Delivery Method Room Air 03/16/22 14:54 Oxygen Flow Rate 0 03/16/22 14:54 Pain Level 9 03/16/22 14:54 Lab/Test Results Lab/Test Results: Laboratory Tests Range/Units 03/16/22 03/16/22 14:52 15:16 WBC (4.4-10.8) 10^3/uL 16.41 H RBC (3.93-5.22) 10^6/uL 4.17 Hgb (11.2-15.7) g/dL 13.7 Hct (36.0-46.0) % 40.2 MCV (80-95) fL 96 H MCH (27.0-33.0) pg 32.9 MCHC (32.0-36.0) % 34.1 RDW (11.7-14.6) % 11.8 Plt Count (130-400) 10^3/uL 324 MPV (8.0-11.0) fL 10.1 Immature Gran % 0.4 Neutrophils % 85.9 Lymphocytes % 8.0 Monocytes % 4.8 Eosinophils % 0.4 Basophils % 0.5 Nucleated RBC % (0.0-0.3) % 0.0 Absolute Neutrophils (1.2-6.7) 10^3/uL 14.10 H Absolute Lymphocytes (1.2-3.4) 10^3/uL 1.31 Absolute Monocytes (0.1-0.8) 10^3/uL 0.79 Absolute Eosinophils (0.0-0.7) 10^3/uL 0.07 Absolute Basophils (0.0-0.2) 10^3/uL 0.08 Urine Color (Yellow) Yellow Urine Clarity (Clear) Cloudy Urine pH (5-8) 6.5 Ur Specific [place] (1.005-1.025) >= 1.030 H Urine Protein (Negative) mg/dL 100 H Urine Ketones (Negative) mg/dL 80 H Urine Blood (Negative) Large H Urine Nitrite (Negative) Negative Urine Bilirubin (Negative) Moderate H Urine Urobilinogen (Up TO 0.2) EU/dL 1.0 H Ur Leukocyte Esterase (Negative) Moderate H Urine RBC (0-2) HPF 5-10 H Urine WBC (0-5) HPF 10-20 H Ur Epithelial Cells (Negative) HPF Many Urine Crystals (Negative) HPF Negative Urine Bacteria (Negative) HPF Many Urine Casts (Negative) LPF Negative Urine Mucus (Negative) Moderate Ur Culture Indicated? No/Sq. Contamination Urine Glucose (Negative) mg/dL Negative POC- Test(urine) Negative Sign Out <Keira Joel DO - Last Filed: 03/16/22 16:19> Sign Out Data: Sign Out Comment: Epigastric abdominal pain, vomiting and loose stools since this morning. Alcohol use last night. Reports history of daily alcohol use. She had relief with GI cocktail then pain returned. Suspect GERD, gastritis or PUD. Pain now worsening. Plan for reassessment after meds and follow-up on CT abdomen and pelvis and final disposition. Last updated by Keira Joel DO at 03/16/22 16:08
[2022-03-16 15:50] LABS: ALT 31 U/L (14-59); AST 25 U/L (15-37); Albumin 4.2 g/dL (3.4-5.0); Alkaline Phosphatase 42 U/L (46-116); Anion Gap 14.8 mmol/L (3-11); BUN 10 mg/dL (7-18); Bilirubin, Total 0.8 mg/dL (0.2-1.0); CO2 23.2 mmol/L (21.0-32.0); CREATININE 1.1 mg/dL (0.55-1.02); Calcium 9.3 mg/dL (8.5-10.1); Chloride 103 mmol/L (98-107); Estimated GFR 70.63 (mL/min/1.73m2); Glucose 106 mg/dL (74-106); Lipase 88 U/L (73-393); Potassium 3.4 mmol/L (3.5-5.1); Sodium 141 mmol/L (136-145); Total Protein 8.2 g/dL (6.4-8.2)
--- NOTE | 2022-03-16 16:06 | DI.CT_ITS ---
Exam(s) CT ABDOMEN PELVIS WO EXAM: CT ABDOMEN PELVIS WO CLINICAL HISTORY: upper abd pain, leukocytosis, r/o acute process. TECHNIQUE: Imaging Protocol: Axial computed tomography images with coronal and sagittal reformatted images were created and reviewed CONTRAST MATERIAL: Intravenous: none Oral: None COMPARISON: No exams were available for comparison FINDINGS: VISUALIZED LUNG BASES: No nodules nor pleural effusions evident. ABDOMEN: LIVER: There are no obvious focal hepatic lesions evident of this noninfused study. GALLBLADDER/BILIARY: No obvious gallbladder pathology. CBD is not dilated. PANCREAS: No evidence of pancreatic mass nor dilatation of the pancreatic duct. SPLEEN: Spleen is not enlarged. No obvious intrasplenic lesions. ADRENALS: There are no significant adrenal masses. KIDNEYS:No cysts evident. No solid renal masses. No calculi nor hydronephrosis. . ABDOMINAL AORTA: Abdominal aorta is not enlarged. LYMPH NODES: There is no retroperitoneal nor paraaortic adenopathy. ABDOMINAL WALL: No evidence of significant anterior abdominal wall nor inguinal hernia. GI: There is no evidence of appendicitis.. However, there appears to be some circumferential thicken ing of some distal ileal loops which are difficult to evaluate because of lack of oral contrast withi n these loops. There is also some mesenteric streaking in this area. Also a few slightly dilated sm all bowel loops in the right-side of the abdomen.. There is also a 3 cm length of small bowel which appears significantly thin, more so than expected from transient peristalsis and cannot exclude a str icture at this level. There is also a small amount of fluid below this region in the cul-de-sac. Th li iliac loop findings are suspicious for enteritis such as developing inflammatory bowel disease/po ssible Crohn's disease. PELVIS: LYMPH NODES: There is no intrapelvic nor inguinal adenopathy. GI: No evidence of appendicitis.There is no significant sigmoid diverticular disease. URINARY BLADDER: Collapsed. REPRODUCTIVE: Uterus and left ovary appear unremarkable. The right ovary is difficult to delineate f rom the multiple unopacified small bowel loops in this region. As described above there is small marisel unt of free fluid in the cul-de-sac. OSSEOUS: No significant osseous lesions and no fractures. Sacroiliac joints unremarkable. No evidence of sacroiliitis. IMPRESSION: 1. There are abnormal findings in the distal small bowel as described above which are suspicious for enteritis-possible inflammatory bowel disease such as Crohn's disease. In addition, there is a possi eduarda strictured 3 cm loop of bowel in this region with mild dilatation of adjacent small bowel loops a nd there is also small amount of free fluid. Possible early developing small-bowel obstruction. Rep eat CT scan is recommended with oral contrast. 2. No evidence of appendicitis nor significant sigmoid diverticular disease. 3. The right ovary is difficult to delineate from the numerous unopacified small bowel loops in this region. The left ovary appears unremarkable. First read by [facility]. RADIATION DOSE DELIVERED: 776.99mGy.cm Total DLP DATA REPOSITORY: All CT scans at this facility are submitted to the National Radiology Data Registry (NRDR) Dose Index Registry (DIR) with the [employer] (A[employer]). RADIATION OPTIMIZATION: All CT scans at this facility use at least one of these dose optimization te chniques: automated exposure control; mA and/or kV adjustment per patient size (includes targeted exa ms where dose is matched to clinical indication); or iterative reconstruction.
[2022-03-16] MEDS: HYDROmorphone 2 MG/ML SYR 1 MG IVP (16:23)
[2022-03-16 16:42] LABS: Bilirubin Moderate (Negative); Blood Moderate (Negative); Clarity Sl Cloudy (Clear); Glucose Negative (Negative); Ketones 80 mg/dL (Negative); Leukocyte Esterase Trace (Negative); Nitrite Negative (Negative); Specific Gravity 1.025 (1.005-1.025); pH 6.5 (5-8)
[2022-03-16 17:09] LABS: Bacteria Many HPF (Negative); C & S Indicated? No/Sq. Contamination; Crystals Negative HPF (Negative); Epithelial Cells Many HPF (Negative); Mucus Heavy (Negative)
--- NOTE | 2022-03-16 17:48 | DI.VRAD_ITS ---
PROCEDURE INFORMATION: Exam: CT Abdomen And Pelvis Without Contrast Exam date and time: 03/16/2022 5:10 PM Age: 27 years old Clinical indication: Other: Upper abd pain, leukocytosis, R/O acute process TECHNIQUE: Imaging protocol: Computed tomography of the abdomen and pelvis without contrast. COMPARISON: CR XR SCOLIOSIS T-L SPINE 09/06/2021 4:04 PM FINDINGS: Liver: 1.7 cm liver hypodensity that cannot be further characterized on the current examination. Gallbladder and bile ducts: Normal. No calcified stones. No ductal dilation. Pancreas: Normal. No ductal dilation. Spleen: Normal. No splenomegaly. Adrenal glands: Normal. No mass. Kidneys and ureters: Normal. No hydronephrosis. Stomach and bowel: Wall thickening with surrounding edematous change distal small bowel consistent with a nonspecific enteritis. Correlate clinically. No evidence of intestinal perforation or obstruction. Appendix: No evidence of appendicitis. Intraperitoneal space: Mild free fluid at the pelvis. Vasculature: Unremarkable. No abdominal aortic aneurysm. Lymph nodes: Unremarkable. No enlarged lymph nodes. Urinary bladder: Unremarkable as visualized. Reproductive: Unremarkable as visualized. Bones/joints: Unremarkable. No acute fracture. Soft tissues: Unremarkable. IMPRESSION: Wall thickening with surrounding edematous change distal small bowel consistent with a nonspecific enteritis. Correlate clinically. Dictated and Authenticated by: Scottie Evans MD. Ordering:JAYMIE Crockett MD
[2022-03-16 18:29] VITALS: BP 137/63; PULSE 76; TEMP 36.8; O2SAT 100
== END 2022-03-16 18:35 | disposition home or self-care (01) ==
PROVIDERS: Physician Assistant; Emergency Provider Emergency Medicine; PCP Family Medicine
DX: R19.7 Diarrhea, unspecified (principal); R11.2 Nausea with vomiting, unspecified; R10.13 Epigastric pain; R03.0 Elevated blood-pressure reading, without diagnosis of hypertension; R00.0 Tachycardia, unspecified
CPT/HCPCS: 36415; 80053; 81025; 83690; 96361; 96374; 96375; 99284; 74176; 81003; 81015; 85025; J1170; J2405

== ENCOUNTER 2022-07-11 21:38 | Emergency (ER) | payer MEDICAID, SELFPAY ==
[2022-07-11] VITALS (18 sets, daily range): BP systolic 121–168; BP diastolic 79–112; PULSE 97–175; RESP 12–32; TEMP 37.1; O2SAT 95–98
[2022-07-11] MEDS: EPINEPHrine 0.3 MG KIT IM (21:40)
--- NOTE | 2022-07-11 21:42 | ED.GENADUL_ITS ---
Discharge Plan Disposition Patient Disposition: Home Discharge Details Clinical Impression: Allergic reaction Primary Care Provider: Saman Veras ED Provider: Viktoriya Mason Home Meds and New Rx's Prescriptions: Continued bupropion HCl 150 mg tablet sustained-release 12 hr 300 mg PO DAILY epinephrine [EpiPen 2-Beto] 0.3 MG/0.3 ML auto-injector 0.3 mg IJ PRN PRNQty: 2 5RF cetirizine 10 mg tablet 10 mg PO DAILY Patient Comments: TAKE 1 TABLET BY MOUTH EVERY DAY fluticasone propionate 50 mcg/actuation spray,suspension 2 spray INTRANASAL DAILY Patient Comments: INSTILL 2 PUFFS IN EACH NOSTRIL ONCE A DAY AFTER SINUS RINSE FOR 30 DAYS hydroxyzine HCl 25 mg tablet See Rx Instructions .ROUTE .COMPLEX PRNQty: 20 0RF Rx Instructions: 25-50mg po q6-8h prn pruritis norethindrone (contraceptive) 0.35 mg tablet 1 tab PO DAILY Patient Comments: TAKE 1 TABLET BY MOUTH EVERY DAY Discharge Instructions Instructions: General Allergic Reaction (ED) Additional Instructions: I do recommend that we observe you for approximately 3 hours after epinephrine injection. However you have improved. You do have a EpiPen's at home. If your symptoms return please do not hesitate to use your epinephrine again. If you do have to use it again please return to the ER. You may take 1 or 2 Benadryl tablets every 6-8 hours as needed for rash and itching. You may also continue to take Pepcid which is a different histamine elis once daily. Follow up with primary care provider in 3-5 days. Return to ED sooner if any worsening or concerns. Increase oral fluids. Referrals: Saman Veras [Primary Care Provider] - 3 days Medical Decision Making 27-year-old female presents to the ER with chief complaint of allergic reaction, throat swelling and facial swelling which occurred approximately 30 minutes prior to arrival. We did receive a phone call from on-call PCP instructed her to come into the ER. She was instructed to take an antihistamine and use her EpiPen. Patient did not use her EpiPen prior to arrival. She did take cetirizine. She is having a hard time forming words. She is hyperventilating heart rate is 163. IV, Solu-Medrol, 20 of Pepcid, 50 of Benadryl IV 0.3 of epinephrine IM ordered. Normal saline 1 L. 2237: Patient feeling much better. Heart rate has decreased to 95, blood pressure is also normalized she is satting 97% on room air and is speaking in full sentences. Patient does have epi-pens at home. 2312: Patient is requesting to have her IV removed and to be discharged home she reports she is feeling better. I do recommend that we observe her for approximately 3 hours she has been here for approximately an hour and a half at this time. Vital signs have improved she is speaking in full sentences. Patient does have an EpiPen at home which is reassuring. I did encourage her to stay for observation she is requesting to be discharged home at this time I did discuss strict return instructions and home care. Patient and family verbalized understanding. This text was generated using [employer] system, please disregard any oddities of phrase or misspellings. HPI General Mode of arrival: ambulatory . Date/Time Provider Initiated Documentation: 07/11/22 21:40 . Limitations to Documentation: no limitations . Information obtained by: patient, RN/MD, RN notes reviewed and old records reviewed . HPI Narrative: 27-year-old female presents to the ER with chief complaint of allergic reaction, throat swelling and facial swelling which occurred approximately 30 minutes prior to arrival. We did receive a phone call from on-call PCP instructed her to come into the ER. She was instructed to take an antihistamine and use her EpiPen. Patient did not use her EpiPen prior to arrival. She did take cetirizine. She is having a hard time forming words. She is hyperventilating heart rate is 163. lungs are clear to auscultation bilaterally. Related Data Home Medications Medication Instructions Recorded Confirmed epinephrine 0.3 mg/0.3 mL 0.3 mg (0.3 mL) IJ PRN PRN ##2 03/13/20 07/11/22 injection, auto-injector (EpiPen 2-Beto) cetirizine 10 mg tablet 10 mg PO DAILY 01/05/21 07/11/22 fluticasone propionate 50 2 spray intranasal DAILY 01/05/21 07/11/22 mcg/actuation nasal spray,suspension hydroxyzine HCl 25 mg tablet See Rx Instructions .Route 01/05/21 07/11/22 .COMPLEX PRN #20 tabs bupropion HCl 150 mg tablet,12 hr 300 mg PO DAILY 11/23/21 07/11/22 sustained-release norethindrone (contraceptive) 0.35 1 tab PO DAILY 01/02/22 07/11/22 mg tablet Previous Rx's Medication Instructions Recorded epinephrine 0.3 mg/0.3 mL 0.3 mg (0.3 mL) IJ PRN PRN ##2 03/13/20 injection, auto-injector (EpiPen 2-Beto) hydroxyzine HCl 25 mg tablet See Rx Instructions .Route 01/05/21 .COMPLEX PRN #20 tabs Allergies Allergy/AdvReac Type Severity Reaction Status Date / Time sulfacetamide AdvReac Intermediate Itching Verified 07/11/22 22:02 General DG: 3 Review of Systems All systems reviewed & are unremarkable except as noted in HPI and below ENT Ears, Nose, Mouth, and Throat: Reports change in voice and Reports throat swelling Cardiovascular Cardiovascular: Reports dyspnea Respiratory Respiratory: Reports as per HPI, Reports dyspnea, Denies stridor and Denies wheezing Gastrointestinal Gastrointestinal: Denies diarrhea, Denies nausea and Denies vomiting Integumentary/Breasts Skin/Breast: Reports pruritus Allergic/Immunologic Allergic/Immunologic: Reports throat swelling and Denies wheezing PFSH All Active Problems (Updated 07/11/22 @ 23:15 by Viktoriya Mason NP) Allergic reaction (Acute) Environmental allergies (Acute) Pruritus (Acute) Post-nasal drip (Acute) Chronic rhinitis (Acute) Influenza (Acute) Medical History (Updated 07/11/22 @ 23:15 by Viktoriya Mason NP) Anxiety Surgical History History of ankle surgery Social History Smoking/Tobacco Use Status: Current every day Tobacco Type: cigarettes and e- cigarettes Smoking risk assessment performed?: Yes Alcohol Intake: current Alcohol Intake frequency: 0-2 drinks per day Alcohol type: beer, wine and hard liquor Drug use: Occasionally Substance use type: marijuana Do you feel safe at home: Yes Do you feel safe in your relationship?: Yes Exam Narrative Exam Narrative: Constitutional: Alert and oriented x3. Appears stated age. Normal body habitus. Patient is very anxious, having a hard time speaking in full sentences. Head: Normocephalic, no trauma. Eyes: Pupils PERRL, Red reflex noted, EOM's intact. Eyelids symmetrical without lesions, discharge, or swelling. ENT: Bilateral TM's WNL, External ear normal to inspection, no mastoid TTP, swelling, or erythema, Nasal turbinates WNL, no nasal discharge. Normal dentition, Posterior pharynx slightly erythemic, uvula is midline no significant swelling noted, no exudate. Chest: RRR, Normal S1, S2, distal pulses intact. Resp: Lungs clear to auscultation bilaterally, no wheezes, rales, or rhonchi. No stridor auscultated. Patient is hyperventilating. Abdomen: Soft, non-distended, Normoactive bowel sounds all 4 quads. Musculoskeletal: Normal gait, 5/5 strength to all four extremities. Skin: No suspicious rashes or lesions. Capillary refill less than 2 sec. Neurologic: Cranial nerves II-XII intact. Alert and oriented x 3. Motor: No deficits noted. Sensory: Intact bilaterally all 4 extremities. Reflexes: DTR's intact bilaterally.. Hematologic/Lymphatic: No ecchymosis, no lymphadenopathy.
[2022-07-11] MEDS: Normal Saline 1,000 ML 1000 ML IV (21:45)
[2022-07-11] MEDS: Famotidine 20 MG/2 ML VIAL IVP (21:53)
[2022-07-11] MEDS: methylPREDNISolone SUCC 125 MG VIAL IVP (21:53)
[2022-07-11] MEDS: diphenhydrAMINE 50 MG/ML VIAL IVP (21:53)
== END 2022-07-11 23:25 | disposition home or self-care (01) ==
PROVIDERS: Emergency Provider Registered Nurse Emergency; PCP Family Medicine
DX: T78.49XA Other allergy, initial encounter (principal); X58.XXXA Exposure to other specified factors, initial encounter; R06.4 Hyperventilation; Z53.29 Procedure and treatment not carried out because of patient's decision for other reasons
CPT/HCPCS: 36415; 96361; 96372; 96374; 96375; 99284; J0171; J1200; J2930

== ENCOUNTER 2022-09-24 17:10 | Outpatient (REF) | payer MEDICAID, SELFPAY | END 2022-09-24 17:11 | disposition home or self-care (01) | LOC: LBN 17:10 | PROVIDERS: PCP Family Medicine; Visit Provider Nurse Practitioner Family | DX: N30.01 Acute cystitis with hematuria (principal) | CPT/HCPCS: 87077; 87086; 87186 ==

== ENCOUNTER 2022-12-12 23:36 | Emergency (ER) | payer MEDICAID, SELFPAY ==
[2022-12-12 23:42] VITALS: BP 146/100; PULSE 142; RESP 16; TEMP 36.5; O2SAT 98
--- NOTE | 2022-12-12 23:45 | DI.RAD_ITS ---
Exam(s) XR LUMBAR SPINE COMPLETE EXAM: XR LUMBAR SPINE COMPLETE CLINICAL HISTORY: fall and pain. TECHNIQUE: 2D digital imaging was performed of the lumbar spine. Four images were obtained. AP, la teral, right oblique and left oblique views were obtained. COMPARISON: No exams were available for comparison FINDINGS: BONES: No fracture or destructive lesion. There is spina bifida occulta of the S1 and S2 sacral segme nts. No facet hypertrophy identified. DISKS: Intervertebral disc spaces are maintained. ALIGNMENT: There is a mild right convex curvature of the lumbar spine. No spondylolysis or spondylol isthesis. SOFT TISSUE: Normal. IMPRESSION: No acute fracture or subluxation. DATA REPOSITORY: RADIATION DOSE DELIVERED:
--- NOTE | 2022-12-12 23:45 | DI.RAD_ITS ---
Exam(s) XR THORACIC SPINE COMPLETE EXAM: XR THORACIC SPINE COMPLETE CLINICAL HISTORY: fall and pain. TECHNIQUE: 2D digital imaging was performed of the thoracic spine. Two views were obtained. AP and lateral views were obtained. COMPARISON: No exams were available for comparison FINDINGS: BONES: There is no fracture or destructive lesion. The vertebral bodies and posterior elements are un remarkable. DISKS:There is a mild left convex curvature of the spine. Interverebral disc spaces are maintained. SOFT TISSUE: Visualized lungs are clear. IMPRESSION: No acute fracture or subluxation in the thoracic spine. DATA REPOSITORY: RADIATION DOSE DELIVERED:
--- NOTE | 2022-12-12 23:55 | ED.GENADUL_ITS ---
Discharge Plan Disposition Patient Disposition: Home Condition: Improving Discharge Details Clinical Impression: Back muscle spasm Primary Care Provider: Saman Veras ED Provider: Sandro Craig Meds and New Rx's Prescriptions: New cyclobenzaprine 5 mg tablet 5 mg PO QHS Qty: 10 0RF Continued bupropion HCl 150 mg tablet sustained-release 12 hr 300 mg PO DAILY epinephrine [EpiPen 2-Beto] 0.3 MG/0.3 ML auto-injector 0.3 mg IJ PRN PRNQty: 2 5RF cetirizine 10 mg tablet 10 mg PO DAILY Patient Comments: TAKE 1 TABLET BY MOUTH EVERY DAY fluticasone propionate 50 mcg/actuation spray,suspension 2 spray INTRANASAL DAILY Patient Comments: INSTILL 2 PUFFS IN EACH NOSTRIL ONCE A DAY AFTER SINUS RINSE FOR 30 DAYS hydroxyzine HCl 25 mg tablet See Rx Instructions .ROUTE .COMPLEX PRNQty: 20 0RF Rx Instructions: 25-50mg po q6-8h prn pruritis norethindrone (contraceptive) 0.35 mg tablet 1 tab PO DAILY Patient Comments: TAKE 1 TABLET BY MOUTH EVERY DAY Discharge Instructions Instructions: Muscle Spasm (ED) Discharge Data Discharge Physician: Sandro Craig Medical Decision Making MDM: Summary: Patient who fell 2 days ago sustaining trauma to her back and was having muscle spasm and some tingling numbness to her upper extremities that have come and go on exam she is any decrease sensation normal proprioception good strength and just some paraspinal muscle spasm at the level of T12-L1. X-rays were done which shows no fractures patient does have scoliosis. She has an appointment to follow-up with her primary care physician. I will give her a prescription for Flexeril. Data Review Analysis All the data on this patient was reviewed by me including laboratory and imaging studies as well as bedside studies performed by me Independent review of Studies Imaging X-rays did not show any fractures but the radiologist read spina bifida occulta at the first and second sacral segments which has nothing to do with her symptoms Lab: Risk Stratification: Patient with paraspinal muscle spasm will be discharged home and a muscle relaxant Differential Diagnosis: 1. Paraspinal muscle spasm with 2. Low back pain 3. Radiculopathy 4. 5. Consultants: Shared disposition: Patient feels better and will be discharged home she was very anxious and now is better Impression: HPI General Date/Time Provider Initiated Documentation: 12/12/22 23:55 . HPI Narrative: Patient presents to the emergency department complaining of thoracic and lumbar pain after she fell 2 days ago while she was drinking alcohol with friends. Reports occasional numbness and tingling to her lower extremities that comes and goes denies any bladder or bowel incontinence denies lower extremity weakness Related Data Home Medications Medication Instructions Recorded Confirmed epinephrine 0.3 mg/0.3 mL 0.3 mg (0.3 mL) IJ PRN PRN ##2 03/13/20 12/12/22 injection, auto-injector (EpiPen 2-Beto) cetirizine 10 mg tablet 10 mg PO DAILY 01/05/21 12/12/22 fluticasone propionate 50 2 spray intranasal DAILY 01/05/21 12/12/22 mcg/actuation nasal spray,suspension hydroxyzine HCl 25 mg tablet See Rx Instructions .Route 01/05/21 12/12/22 .COMPLEX PRN #20 tabs bupropion HCl 150 mg tablet,12 hr 300 mg PO DAILY 11/23/21 12/12/22 sustained-release norethindrone (contraceptive) 0.35 1 tab PO DAILY 01/02/22 12/12/22 mg tablet cyclobenzaprine 5 mg tablet 5 mg PO QHS #10 tabs 12/13/22 Previous Rx's Medication Instructions Recorded epinephrine 0.3 mg/0.3 mL 0.3 mg (0.3 mL) IJ PRN PRN ##2 03/13/20 injection, auto-injector (EpiPen 2-Beto) hydroxyzine HCl 25 mg tablet See Rx Instructions .Route 01/05/21 .COMPLEX PRN #20 tabs cyclobenzaprine 5 mg tablet 5 mg PO QHS #10 tabs 12/13/22 Allergies Allergy/AdvReac Type Severity Reaction Status Date / Time sulfacetamide AdvReac Intermediate Itching Verified 12/12/22 23:47 General Stated Complaint: Nk/Back Pain DG: 3 Review of Systems Narrative: Review of Systems: Constitutional: No fevers, chills, sweats Eye: No recent visual problems ENT: No ear pain, nasal congestion, sore throat Respiratory: No shortness of breath, cough Cardiovascular: No Chest pain, palpitations, syncope Gastrointestinal: No nausea, vomiting, diarrhea Genitourinary: No hematuria Jalil/Lymph: Negative for bruising tendency, swollen lymph glands Endocrine: Negative for excessive thirst, excessive hunger Musculoskeletal: no neck pain, joint pain, , decreased range of motion Integumentary: No rash, pruritus, abrasions Neurologic: Alert & oriented X 4 Psychiatric: No anxiety, depression PFSH All Active Problems (Updated 12/13/22 @ 00:44 by Sandro Craig MD) Back muscle spasm (Acute) Environmental allergies (Acute) Pruritus (Acute) Post-nasal drip (Acute) Chronic rhinitis (Acute) Influenza (Acute) Medical History (Updated 12/13/22 @ 00:44 by Sandro Craig MD) Anxiety Surgical History History of ankle surgery Social History Smoking/Tobacco Use Status: Current every day Tobacco Type: cigarettes and e- cigarettes Smoking risk assessment performed?: Yes Alcohol Intake: current Alcohol Intake frequency: 0-2 drinks per day Alcohol type: beer, wine and hard liquor Drug use: Occasionally Substance use type: marijuana Do you feel safe at home: Yes Do you feel safe in your relationship?: Yes Exam Narrative Exam Narrative: Exam; vitals signs as reported above normal Constitutional; In no acute distress, afebrile General: cooperative, healthy appearing, comfortable and no acute distress HEENT: Head: normal to inspection, no palpable skull fracture and normocephalic atraumatic Eyes: : appearance normal, both eyes and all related structures EOM intact bilaterally Pupils: PERRL : conjunctiva normal Direct ophthalmoscopy: normal light reflex, normal conjunctiva, normal visual acuity Ears: Normal TM, normal external canal Neck no JVD, supple non tender Neck: normal visual inspection, full ROM and no lymphadenopathy Chest: normal inspection of the chest Respiratory : normal respiratory effort and able to speak in complete sentences no wheezing no rales Cardio Rate: regular rate, rhythm: regular rhythm normal heart sounds S1 and S2 no murmurs, gallops, or rubs GI : normal to inspection, normal bowel sounds, soft, non tender, non distended, no organomegaly Back/Spine/mild paraspinal muscle spasm at the level of T12-L1 Thoracic/Lumbar Spine: no tenderness or deformities Skin no rashes or lesions Neuro: patient alert and no meningeal signs, Cranial Nerves: CN's II-XI intact bilaterally, Cognition: normal cognition, Speech: speech normal, Gait: normal gait, Depp tendon reflexes normal 2+ muscle strength 5/5 bilaterally Extremities, no edema, full range of motion, normal strength Course Vital Signs Vital signs: Vital Signs Temperature 36.5 C 12/12/22 23:42 Pulse 142 H 12/12/22 23:42 Respiratory Rate 16 12/12/22 23:42 Blood Pressure 146/100 H 12/12/22 23:42 Pulse Oximetry 98 12/12/22 23:42 Temperature 36.5 C 12/12/22 23:42 Temperature Source Temporal Artery Scan 12/12/22 23:42 Pulse 142 H 12/12/22 23:42 Respiratory Rate 16 12/12/22 23:42 Respiratory Effort Normal 12/12/22 23:42 Blood Pressure 146/100 H 12/12/22 23:42 Blood Pressure Position Sitting 12/12/22 23:42 Pulse Oximetry 98 12/12/22 23:42 Oxygen Delivery Method Room Air 12/12/22 23:42 Oxygen Flow Rate 0 12/12/22 23:42 Pain Level 8 12/12/22 23:42 PAWSS Have you Been Recently Intoxicated or Drunk Within the Last 30 days?: Yes Have you Ever Experienced Previous Episodes of Alcohol Withdrawal?: No Have you ever Experienced Withdrawal Seizures?: No Have you ever Experienced Delirium Tremens(DT)s?: No Have you ever undergone Alcohol Rehabilitation Treatment (i.e, inpt ot outpatient treatment programs)?: No Have you ever Experienced Blackouts?: No Have you ever Combined Alcohol with other Downers within the last 90 days?: No Have you ever Combined Alcohol with any other Substance of Abuse during the last 90 days?: No Positive Blood Alcohol level on Presentation? [PCS.BAL]: Yes Evidence of Increased Autonomic Activity (i.e. HR>120, tremor, sweating, agitation, nausea)?: No Result: 2
--- NOTE | 2022-12-13 00:31 | DI.VRAD_ITS ---
PROCEDURE INFORMATION: Exam: XR Lumbosacral Spine Exam date and time: 12/13/2022 12:14 AM Age: 27 years old Clinical indication: Injury or trauma; Fall; Blunt trauma (contusions or hematomas) TECHNIQUE: Imaging protocol: Radiologic exam of the lumbosacral spine. Views: 4 or 5 views. COMPARISON: CR XR SCOLIOSIS T-L SPINE 09/06/2021 4:04 PM FINDINGS: Bones/joints: There is a levoconvex scoliosis of the lumbosacral spine. There is spina bifida occulta at the 1st and 2nd sacral elements. There is no evidence of compression fractures or deformities. Spinal alignment is normal. The intervertebral disc spaces are well maintained. There is no evidence of degenerative osteophytosis or sclerosis. The facet joints show no evidence of degeneration. The sacroiliac joints are within normal limits. Soft tissues: There are no soft tissue calcifications or masses. IMPRESSION: There is spina bifida occulta at the 1st and 2nd sacral elements. No acute fracture subluxation. Convex levoscoliosis of the lumbar spine. Dictated and Authenticated by: Aman Simmons MD. Ordering:LO Jo MD
--- NOTE | 2022-12-13 00:31 | DI.VRAD_ITS ---
PROCEDURE INFORMATION: Exam: XR Thoracic Spine Exam date and time: 12/13/2022 12:16 AM Age: 27 years old Clinical indication: Injury or trauma; Fall; Blunt trauma (contusions or hematomas) TECHNIQUE: Imaging protocol: Radiologic exam of the thoracic spine. Views: 3 views. COMPARISON: CR XR SCOLIOSIS T-L SPINE 09/06/2021 4:04 PM FINDINGS: Bones/joints: There is a compensatory convex levoscoliosis of the thoracic spine. There is no evidence of compression fractures or deformities. Spinal alignment is normal. The intervertebral disc spaces are well preserved. There is no evidence of degenerative osteophytosis or sclerosis. The facet joints show no evidence of degeneration. Soft tissues: There are no soft tissue calcifications or masses. Heart/Mediastinum: The visualized portions of the chest and mediastinum are normal. IMPRESSION: 1. No acute fracture subluxation of the thoracic spine. 2. Compensatory levoscoliosis . Dictated and Authenticated by: Aman Simmons MD. Ordering:LO Jo MD
[2022-12-13 01:02] VITALS: BP 143/100; PULSE 107; RESP 16; TEMP 36.5; O2SAT 98
== END 2022-12-13 01:01 | disposition home or self-care (01) ==
PROVIDERS: Emergency Provider Emergency Medicine Emergency Medical Services; PCP Family Medicine
DX: M62.830 Muscle spasm of back (principal)
CPT/HCPCS: 99284; 72072; 72110

== ENCOUNTER 2023-05-26 00:45 | Emergency (ER) | payer MEDICAID, SELFPAY ==
[2023-05-26 00:49] VITALS: BP 173/94; PULSE 90; RESP 22; TEMP 37; O2SAT 98
--- NOTE | 2023-05-26 00:54 | W.ED.GENAD ---
HPI General Date/Time Provider Initiated Documentation: 05/26/23 00:48. HPI Narrative: 28-year-old female with a past medical history of multiple ear infections in the past presents today for left-sided ear pain. Patient states that the symptoms began a day or 2 ago, she has been taking antihistamines and her nasal spray but this has not been helping. She denies any fever or chills. She does admit to mild runny nose and congestion. No other complaints at this time. She does admit to mild diminished hearing in the left ear. Related Data Home Medications Medication Instructions Recorded Confirmed epinephrine 0.3 mg/0.3 mL 0.3 mg (0.3 mL) IJ PRN PRN ##2 03/13/20 12/12/22 injection, auto-injector (EpiPen 2-Beto) cetirizine 10 mg tablet 10 mg PO DAILY 01/05/21 12/12/22 fluticasone propionate 50 2 spray intranasal DAILY 01/05/21 12/12/22 mcg/actuation nasal spray,suspension hydroxyzine HCl 25 mg tablet See Rx Instructions .Route 01/05/21 12/12/22 .COMPLEX PRN #20 tabs bupropion HCl 150 mg tablet,12 hr 300 mg PO DAILY 11/23/21 12/12/22 sustained-release norethindrone (contraceptive) 0.35 1 tab PO DAILY 01/02/22 12/12/22 mg tablet cyclobenzaprine 5 mg tablet 5 mg PO QHS #10 tabs 12/13/22 amoxicillin 875 mg-potassium 1 tab PO BID 7 days #14 tabs 05/26/23 clavulanate 125 mg tablet Previous Rx's Medication Instructions Recorded epinephrine 0.3 mg/0.3 mL 0.3 mg (0.3 mL) IJ PRN PRN ##2 03/13/20 injection, auto-injector (EpiPen 2-Beto) hydroxyzine HCl 25 mg tablet See Rx Instructions .Route 01/05/21 .COMPLEX PRN #20 tabs cyclobenzaprine 5 mg tablet 5 mg PO QHS #10 tabs 12/13/22 amoxicillin 875 mg-potassium 1 tab PO BID 7 days #14 tabs 05/26/23 clavulanate 125 mg tablet Allergies Allergy/AdvReac Type Severity Reaction Status Date / Time sulfacetamide AdvReac Intermediate Itching Verified 12/12/22 23:47 General Stated Complaint: EarProblem DG: 4 Review of Systems All systems reviewed & are unremarkable except as noted in HPI and below Exam Narrative Exam Narrative: 1.Const: Well-nourished, Well-developed, appearing stated age 2.Eyes: PERRL, no conjunctival injection, and symmetrical lids. 3.ENT: Atraumatic external nose and ears. Moist MM. Neck: Symmetric, trachea midline, No thyromegaly. Left tympanic membrane demonstrates large moderate effusion with bulging. Right tympanic membrane demonstrates minimal effusion. No significant erythema in the posterior oropharynx. 4.CVS: +S1/S2, No murmurs or gallops. Peripheral pulses 2+ and equal in all extremities. Brisk capillary refill in all extremities. 5.RESP: Unlabored respiratory effort. Clear to auscultation bilaterally. No wheezes rales or rhonchi 6.GI: Soft, Nontender/Nondistended, No hepatosplenomegaly. No guarding or rebound. 7.MSK: Normocephalic/Atraumatic, Extremities w/o deformity or ttp No cyanosis or clubbing, Normal movement of all extremities 8.Skin: Warm, Dry. No rashes or lesions. 9.Neuro: manager drive II-XII grossly intact. Sensation grossly intact, no focal neurologic deficits. 10.Psych: (AAO) x3. Appropriate mood and affect Course Vital Signs Vital signs: Vital Signs Temperature 37 C 05/26/23 00:49 Pulse 90 05/26/23 00:49 Respiratory Rate 22 05/26/23 00:49 Blood Pressure 173/94 H 05/26/23 00:49 Pulse Oximetry 98 05/26/23 00:49 Temperature 37 C 05/26/23 00:49 Temperature Source Temporal Artery Scan 05/26/23 00:49 Pulse 90 05/26/23 00:49 Respiratory Rate 22 05/26/23 00:49 Blood Pressure 173/94 H 05/26/23 00:49 Blood Pressure Position Sitting 05/26/23 00:49 Pulse Oximetry 98 05/26/23 00:49 Oxygen Delivery Method Room Air 05/26/23 00:49 Oxygen Flow Rate 0 05/26/23 00:49 Pain Level 6 05/26/23 00:49 Medical Decision Making 28-year-old female with a past medical history of multiple ear infections in the past presents today for left-sided ear pain. Patient states that the symptoms began a day or 2 ago, she has been taking antihistamines and her nasal spray but this has not been helping. She denies any fever or chills. She does admit to mild runny nose and congestion. No other complaints at this time. She does admit to mild diminished hearing in the left ear. Exam demonstrates left-sided otitis media. No mastoid process tenderness. No evidence of tympanic membrane rupture. Symptoms are concerning and do need antibacterial treatment. Will start the patient on Augmentin. Recommend halting the antihistamines while being treated for this secondary to the increased likelihood of potential rupture. Patient otherwise stable. Discussed red flags for which to return. I have extensively reviewed the treatment plan and discharge instructions with the patient. I have addressed all patient concerns at this time. The patient was made aware of what symptoms to monitor for that would warrant a return to the emergency department. Discussed the plan with the patient, they demonstrate verbal understanding and agreement with our assessment and plan at this time. The documentation in this chart was dictated using [employer] dictation software. Please excuse any dictation errors. Quality:SDOH Health Related Social Needs: No Data to Display PFSH All Active Problems Acute left otitis media (Acute) Environmental allergies (Acute) Pruritus (Acute) Post-nasal drip (Acute) Chronic rhinitis (Acute) Influenza (Acute) Medical History Anxiety Surgical History History of ankle surgery Social History Smoking/Tobacco Use Status: Current every day Tobacco Type: cigarettes and e-cigarettes Smoking risk assessment performed?: Yes Alcohol Intake: current Alcohol Intake frequency: 0-2 drinks per day Alcohol type: beer, wine and hard liquor Drug use: Occasionally Substance use type: marijuana Do you feel safe at home: Yes Do you feel safe in your relationship?: Yes Discharge Plan Disposition Patient Disposition: Home Condition: Good Discharge Details Clinical Impression: Acute left otitis media Primary Care Provider: Saman Veras ED Provider: Tyler Perez Home Meds and New Rx's Prescriptions: New amoxicillin-pot clavulanate 875-125 mg tablet 1 tab PO BID 7 Days Qty: 14 0RF No Action bupropion HCl 150 mg tablet sustained-release 12 hr 300 mg PO DAILY epinephrine [EpiPen 2-Beto] 0.3 MG/0.3 ML auto-injector 0.3 mg IJ PRN PRNQty: 2 5RF cetirizine 10 mg tablet 10 mg PO DAILY Patient Comments: TAKE 1 TABLET BY MOUTH EVERY DAY fluticasone propionate 50 mcg/actuation spray,suspension 2 spray INTRANASAL DAILY Patient Comments: INSTILL 2 PUFFS IN EACH NOSTRIL ONCE A DAY AFTER SINUS RINSE FOR 30 DAYS hydroxyzine HCl 25 mg tablet See Rx Instructions .ROUTE .COMPLEX PRNQty: 20 0RF Rx Instructions: 25-50mg po q6-8h prn pruritis norethindrone (contraceptive) 0.35 mg tablet 1 tab PO DAILY Patient Comments: TAKE 1 TABLET BY MOUTH EVERY DAY cyclobenzaprine 5 mg tablet 5 mg PO QHS Qty: 10 0RF Discharge Instructions Instructions: Ear Infection (ED) Additional Instructions: At this time you have evidence of an ear infection in your left ear. Please take the antibiotic as directed. Please do not take your cetirizine or Benadryl or loratadine while fighting the ear infection as those can actually potentially make your infection slightly worse. If you notice any worsening of your symptoms, or any new symptoms such as vomiting, diarrhea, fever, chills, shortness of breath, chest pain, numbness, weakness, or fainting , please return immediately to the emergency department for reevaluation. Please follow up with your primary care provider as soon as possible for reassessment and reevaluation. As always, it was a pleasure participating in your medical care today. Referrals: Saman Veras [Primary Care Provider] -
[2023-05-26] MEDS: Amox. 875/Clav. 125, 2 TABS/BTL 1 TAB PO (01:02)
[2023-05-26] MEDS: Acetaminophen 500 MG TAB 1000 MG PO (01:03)
== END 2023-05-26 01:03 | disposition home or self-care (01) ==
PROVIDERS: Emergency Provider Student in an Organized Health Care Education/Training Program; PCP Family Medicine
DX: H66.92 Otitis media, unspecified, left ear (principal); F17.210 Nicotine dependence, cigarettes, uncomplicated; F17.290 Nicotine dependence, other tobacco product, uncomplicated
CPT/HCPCS: 99282

== ENCOUNTER 2023-08-12 11:33 | Emergency (ER) | payer MEDICAID, SELFPAY ==
[2023-08-12 11:40] VITALS: BP 140/92; PULSE 80; RESP 16; TEMP 36.8; O2SAT 98
--- NOTE | 2023-08-12 12:45 | W.ED.GENAD ---
Discharge Plan Disposition Patient Disposition: Home Condition: Stable Discharge Details Clinical Impression: Acute left otitis media Primary Care Provider: Saman Veras ED Provider: Viktoriya Mason Home Meds and New Rx's Prescriptions: New amoxicillin-pot clavulanate 875-125 mg tablet 1 tab PO BID 10 Days Qty: 20 0RF Rx Instructions: Take one tablet twice daily x 10 days No Action epinephrine [EpiPen 2-Beto] 0.3 MG/0.3 ML auto-injector 0.3 mg IJ PRN PRNQty: 2 5RF cetirizine 10 mg tablet 10 mg PO DAILY Patient Comments: TAKE 1 TABLET BY MOUTH EVERY DAY fluticasone propionate 50 mcg/actuation spray,suspension 2 spray INTRANASAL DAILY Patient Comments: INSTILL 2 PUFFS IN EACH NOSTRIL ONCE A DAY AFTER SINUS RINSE FOR 30 DAYS hydroxyzine HCl 25 mg tablet See Rx Instructions .ROUTE .COMPLEX PRNQty: 20 0RF Rx Instructions: 25-50mg po q6-8h prn pruritis norethindrone (contraceptive) 0.35 mg tablet 1 tab PO DAILY Patient Comments: TAKE 1 TABLET BY MOUTH EVERY DAY Discharge Instructions Instructions: Ear Infection (ED) Additional Instructions: Take the antibiotic twice daily with yogurt or probiotic as prescribed. Please take Tylenol or Ibuprofen with food every 4-6 hours as needed for pain and swelling. Follow up with primary care provider/ENT in 3-5 days. Return to ED sooner if any worsening or concerns. Stand Alone Forms: Work Release Referrals: Saman Veras [Primary Care Provider] - 5 days Mirza Nix MD [ [facility] - 2 weeks HPI General Mode of arrival: ambulatory. Date/Time Provider Initiated Documentation: 08/12/23 12:43. Limitations to Documentation: no limitations. Information obtained by: patient, RN notes reviewed and old records reviewed. HPI Narrative: 28-year-old female presents to the ER with chief complaint of left ear pain which began on Saturday. She reports pressure that is building. She does have a history of chronic ear infections which she reports is usually her left ear. On exam she does have bulging, fluid noted behind the eardrum with erythema. Posterior oropharynx within normal limits. Related Data Home Medications Medication Instructions Recorded Confirmed epinephrine 0.3 mg/0.3 mL 0.3 mg (0.3 mL) IJ PRN PRN ##2 03/13/20 05/26/23 injection, auto-injector (EpiPen 2-Beto) cetirizine 10 mg tablet 10 mg PO DAILY 01/05/21 05/26/23 fluticasone propionate 50 2 spray intranasal DAILY 01/05/21 05/26/23 mcg/actuation nasal spray,suspension hydroxyzine HCl 25 mg tablet See Rx Instructions .Route 01/05/21 05/26/23 .COMPLEX PRN #20 tabs norethindrone (contraceptive) 0.35 1 tab PO DAILY 01/02/22 05/26/23 mg tablet amoxicillin 875 mg-potassium 1 tab PO BID Otitis media 10 days 08/12/23 clavulanate 125 mg tablet #20 tabs Previous Rx's Medication Instructions Recorded epinephrine 0.3 mg/0.3 mL 0.3 mg (0.3 mL) IJ PRN PRN ##2 03/13/20 injection, auto-injector (EpiPen 2-Beto) hydroxyzine HCl 25 mg tablet See Rx Instructions .Route 01/05/21 .COMPLEX PRN #20 tabs amoxicillin 875 mg-potassium 1 tab PO BID Otitis media 10 days 08/12/23 clavulanate 125 mg tablet #20 tabs Allergies Allergy/AdvReac Type Severity Reaction Status Date / Time sulfacetamide AdvReac Intermediate Itching Verified 12/12/22 23:47 General Stated Complaint: EarProblem DG: 4 Review of Systems ENT Ears, Nose, Mouth, and Throat: Reports otalgia Exam [facility] Ears: TM normal on the right and TM abnormal bulging on the left, bullous on the left, erythematous on the left, with fluid behind the TM and with loss of landmarks Face and sinus: normal facial exam Mouth: oral mucosae normal and lip normal Teeth and gingiva: dentition normal Throat: posterior oropharynx normal Course Vital Signs Vital signs: Vital Signs Temperature 36.8 C 08/12/23 11:40 Pulse 80 08/12/23 11:40 Respiratory Rate 16 08/12/23 11:40 Blood Pressure 140/92 H 08/12/23 11:40 Pulse Oximetry 98 08/12/23 11:40 Temperature 36.8 C 08/12/23 11:40 Temperature Source Temporal Artery Scan 08/12/23 11:40 Pulse 80 08/12/23 11:40 Respiratory Rate 16 08/12/23 11:40 Respiratory Effort Normal 08/12/23 12:24 Blood Pressure 140/92 H 08/12/23 11:40 Blood Pressure Position Sitting 08/12/23 11:40 Pulse Oximetry 98 08/12/23 11:40 Oxygen Delivery Method Room Air 08/12/23 11:40 Oxygen Flow Rate 0 08/12/23 11:40 Pain Level 5 08/12/23 11:40 Comment Ibuprofen at 0200 this morning 08/12/23 11:40 Medical Decision Making 28-year-old female presents to the ER with chief complaint of left ear pain which began on Saturday. She reports pressure that is building. She does have a history of chronic ear infections which she reports is usually her left ear. On exam she does have bulging, fluid noted behind the eardrum with erythema. Posterior oropharynx within normal limits. Patient given Augmentin here in the department and prescription. Discussed home care and referral for ear nose and throat. This text was generated using [employer] dictation system, please disregard any oddities of phrase or misspellings. Quality:SDOH Health Related Social Needs: No Data to Display PFSH All Active Problems (Updated 08/12/23 @ 12:47 by Viktoriya Mason NP) Acute left otitis media (Acute) Environmental allergies (Acute) Pruritus (Acute) Post-nasal drip (Acute) Chronic rhinitis (Acute) Influenza (Acute) Medical History (Updated 08/12/23 @ 12:47 by Viktoriya Mason NP) Anxiety Surgical History History of ankle surgery Social History Smoking/Tobacco Use Status: Current every day Tobacco Type: cigarettes and e-cigarettes Smoking risk assessment performed?: Yes Alcohol Intake: current Alcohol Intake frequency: 0-2 drinks per day Alcohol type: beer, wine and hard liquor Drug use: Occasionally Substance use type: marijuana Housing: house Do you feel safe at home: Yes Do you feel safe in your relationship?: Yes
== END 2023-08-12 12:57 | disposition home or self-care (01) ==
PROVIDERS: Emergency Provider Registered Nurse Emergency; PCP Family Medicine
DX: H66.92 Otitis media, unspecified, left ear (principal); F17.210 Nicotine dependence, cigarettes, uncomplicated; F17.290 Nicotine dependence, other tobacco product, uncomplicated
CPT/HCPCS: 99283

== ENCOUNTER 2023-09-19 22:13 | Emergency (ER) | payer MEDICAID, SELFPAY ==
--- NOTE | 2023-09-19 22:15 | DI.CT_ITS ---
Exam(s) CT HEAD CERVICAL SPINE WO EXAM: CT HEAD CERVICAL SPINE WO CLINICAL HISTORY: fall, concussed, post/ant pain. R lateral C5 pain. TECHNIQUE: Imaging Protocol: Axial computed tomography images with coronal and sagittal reformatted images were created and reviewed COMPARISON: No exams were available for comparison FINDINGS: CT Head: Ventricles and Extra axial spaces: Normal in size and morphology for the patient's age. Hemorrhage: None. Cerebral parenchyma: Normal. Midline shift: None. Brainstem/Cerebellum: Normal. Calvarium: Normal. Visualized Paranasal sinuses/Mastoids: There is mild mucosal thickening in the maxillary sinuses and sphenoid sinuses bilaterally. No fluid levels are seen. The mastoid air cells are clear. Soft Tissues: Unremarkable. CT Cervical Spine: Bones: No acute fracture or subluxation. Soft Tissues: Unremarkable. Lung Apices: Clear. IMPRESSION: 1. No acute intracranial process. 2. No acute fracture or subluxation in the cervical spine. RADIATION DOSE DELIVERED: 1,403.25mGy.cm Total DLP DATA REPOSITORY: All CT scans at this facility are submitted to the National Radiology Data Registry (NRDR) Dose Index Registry (DIR) with the [employer] (A[employer]). RADIATION OPTIMIZATION: All CT scans at this facility use at least one of these dose optimization te chniques: automated exposure control; mA and/or kV adjustment per patient size (includes targeted exa ms where dose is matched to clinical indication); or iterative reconstruction.
--- NOTE | 2023-09-19 22:15 | DI.RAD_ITS ---
Exam(s) XR CHEST 2V PA LATERAL EXAM: XR CHEST 2V PA LATERAL CLINICAL HISTORY: left lateral rib pain after fall TECHNIQUE: 2D digital imaging was performed of the chest. Two images were obtained. PA and lateral views were obtained. COMPARISON: CR XR CHEST 2V PA LATERAL from 03/29/2021 FINDINGS: MEDIASTINUM: Normal. HEART: Normal. PULMONARY VASCULATURE: Normal. LUNGS: Clear. PLEURAL SPACE: No pleural effusion or pneumothorax. BONE:Within normal limits for the patient's age. No displaced rib fractures identified. OTHER FINDINGS:Normal. IMPRESSION: No acute pulmonary findings. If there is continued concern for rib fracture, x-ray of the ribs may be obtained for further evaluation. DATA REPOSITORY: RADIATION DOSE DELIVERED:
[2023-09-19 22:18] VITALS: BP 192/135; PULSE 122; RESP 18; TEMP 36.8; O2SAT 99
--- NOTE | 2023-09-19 22:29 | ED.GENADUL_ITS ---
Discharge Plan Disposition Patient Disposition: Home Condition: Good Discharge Details Chief Complaint: HeadInjury Clinical Impression: UTI (urinary tract infection), Concussion, Headache Primary Care Provider: Saman Veras ED Provider: Tyler Perez Home Meds and New Rx's Prescriptions: No Action epinephrine [EpiPen 2-Beto] 0.3 MG/0.3 ML auto-injector 0.3 mg IJ PRN PRNQty: 2 5RF cetirizine 10 mg tablet 10 mg PO DAILY Patient Comments: TAKE 1 TABLET BY MOUTH EVERY DAY fluticasone propionate 50 mcg/actuation spray,suspension 2 spray INTRANASAL DAILY Patient Comments: INSTILL 2 PUFFS IN EACH NOSTRIL ONCE A DAY AFTER SINUS RINSE FOR 30 DAYS hydroxyzine HCl 25 mg tablet See Rx Instructions .ROUTE .COMPLEX PRNQty: 20 0RF Rx Instructions: 25-50mg po q6-8h prn pruritis norethindrone (contraceptive) 0.35 mg tablet 1 tab PO DAILY Patient Comments: TAKE 1 TABLET BY MOUTH EVERY DAY Discharge Instructions Instructions: Concussion (ED) Additional Instructions: If you have any worsening of your symptoms please return immediately. Please be very cognizant of any evidence of worsening headache, vomiting, weakness, numbness, dizziness, decreased concentration, memory problems, sleep disturbance, irritability, fatigue, visual disturbances, judgment problems, depression, or anxiety. These may represent a worsening of your condition or a different, or worse pathology. Please either return immediately for reevaluation or follow up with your primary care provider immediately for continued assessment, reassessment, and management. Please avoid any contact sports, or activities which could cause jarring of your head. A second repeat injury can cause significant and permanent brain damage. After you have complete resolution of any of the symptoms noted above please wait one COMPLETE week until you resume normal gentle physical activity. If you have any return of the symptoms after this, please again wait 1 week after you have complete resolution of your symptoms to return to gentle and normal activities. Stand Alone Forms: Work Release Referrals: Saman Veras [Primary Care Provider] - [facility] General Date/Time Provider Initiated Documentation: 09/19/23 22:23 . HPI Narrative: 28-year-old female with past medical history of allergies, anxiety, previous ankle surgery presents today for evaluation of a headache. Patient states that she was in her driveway, did have a few drinks this evening, slipped fell and thinks she might of hit the back of her head. She does not recall the event completely. After hitting her head she had significant pain in the front and back of her head, she called a friend who came and picked her up and brought her here. Friend states that she has been perseverating for questions. She admits to small amount of left-sided rib pain, as well as small amount of right-sided neck pain. She denies any vomiting. She is not taking blood thinners. She does take control. Light makes her symptoms worse. Loud noise makes her symptoms worse. She denies any history of migraine headaches. No other complaints at this time. No other modifying factors. Related Data Home Medications Medication Instructions Recorded Confirmed epinephrine 0.3 mg/0.3 mL 0.3 mg (0.3 mL) IJ PRN PRN ##2 03/13/20 09/19/23 injection, auto-injector (EpiPen 2-Beto) cetirizine 10 mg tablet 10 mg PO DAILY 01/05/21 09/19/23 fluticasone propionate 50 2 spray intranasal DAILY 01/05/21 09/19/23 mcg/actuation nasal spray,suspension hydroxyzine HCl 25 mg tablet See Rx Instructions .Route 01/05/21 09/19/23 .COMPLEX PRN #20 tabs norethindrone (contraceptive) 0.35 1 tab PO DAILY 01/02/22 09/19/23 mg tablet Previous Rx's Medication Instructions Recorded epinephrine 0.3 mg/0.3 mL 0.3 mg (0.3 mL) IJ PRN PRN ##2 03/13/20 injection, auto-injector (EpiPen 2-Beto) hydroxyzine HCl 25 mg tablet See Rx Instructions .Route 01/05/21 .COMPLEX PRN #20 tabs Allergies Allergy/AdvReac Type Severity Reaction Status Date / Time sulfacetamide AdvReac Intermediate Itching Verified 09/19/23 22:26 General Stated Complaint: HeadInjury DG: 2 Review of Systems All systems reviewed & are unremarkable except as noted in HPI and below Exam Narrative Exam Narrative: 1.Const: Well-nourished, Well-developed, appearing stated age 2.Eyes: PERRL, no conjunctival injection, and symmetrical lids. 3.ENT: Atraumatic external nose and ears. Moist MM. Neck: Symmetric, trachea midline, No thyromegaly. There is no evidence of raccoon eyes, moran sign, CSF rhinorrhea, mastoid tenderness, cranial crepitus, hemotympanum, exophthalmos, or hyphema. Patient demonstrates intact dentition with no signs of tooth avulsion or fracture, no signs of jaw deformity, no evidence of a LeFort's fracture, with an intact palate, nose and orbital region. There is no evidence of a nasal septal hematoma. No proptosis. Jaw closes symmetrically. Airway is clear. Patient does have tenderness over the occiput but no evidence of trauma. 4.CVS: +S1/S2, No murmurs or gallops. Peripheral pulses 2+ and equal in all extremities. Brisk capillary refill in all extremities. 5.RESP: Unlabored respiratory effort. Clear to auscultation bilaterally. No wheezes rales or rhonchi 6.GI: Soft, Nontender/Nondistended, No hepatosplenomegaly. No guarding or rebound. 7.MSK: Normocephalic/Atraumatic, Extremities w/o deformity or ttp No cyanosis or clubbing, Normal movement of all extremities. Mild left lateral rib tenderness at rib 7. No midline tenderness to palpation over the CTLS spine. Normal ROM in flexion, extension, side bend, and rotation. Patient has +5 out of 5 strength in the lower extremities in dorsiflexion and plantarflexion, knee flexion and extension, hip flexion and extension. Normal strength for dorsiflexion and plantar flexion of the great toe bilaterally. There is +2 over 2 dorsalis pedis pulses bilaterally. There is normal sensation to the skin with light touch at the foot, knee, and hip. Normal saddle sensation. Good sensation over the deep sural nerve area bilaterally. Rectal exam demonstrates good rectal tone with excellent horacio-rectal sensation. Reflexes are +2 over 4 in the patellar reflex bilaterally. +5 out of 5 strength in the medial, ulnar, radial nerve distribution bilaterally in the hands as well as intact light touch sensation to these dermatomes on the hands 8.Skin: Warm, Dry. No rashes or lesions. 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 Sensation grossly intact, no focal neurologic deficits. 10.Psych: (AAO) x3. Appropriate mood and affect Course Vital Signs Vital signs: Vital Signs Temperature 36.8 C 09/19/23 22:18 Pulse 122 H 09/19/23 22:18 Respiratory Rate 18 09/19/23 22:18 Blood Pressure 192/135 H 09/19/23 22:18 Pulse Oximetry 99 09/19/23 22:18 Temperature 36.8 C 09/19/23 22:18 Pulse 122 H 09/19/23 22:18 Respiratory Rate 18 09/19/23 22:18 Respiratory Effort Normal 09/19/23 22:23 Respiratory Depth Normal 09/19/23 22:23 Respiratory Pattern Normal 09/19/23 22:23 Blood Pressure 192/135 H 09/19/23 22:18 Blood Pressure Position Sitting 09/19/23 22:18 Pulse Oximetry 99 09/19/23 22:18 Pain Level 8 09/19/23 22:18 Medical Decision Making 28-year-old female with past medical history of allergies, anxiety, previous ankle surgery presents today for evaluation of a headache. Patient states that she was in her driveway, did have a few drinks this evening, slipped fell and thinks she might of hit the back of her head. She does not recall the event completely. After hitting her head she had significant pain in the front and back of her head, she called a friend who came and picked her up and brought her here. Friend states that she has been perseverating for questions. She admits to small amount of left-sided rib pain, as well as small amount of right-sided neck pain. She denies any vomiting. She is not taking blood thinners. She does take control. Light makes her symptoms worse. Loud noise makes her symptoms worse. She denies any history of migraine headaches. No other complaints at this time. No other modifying factors. Physical exam demonstrates occipital pain, right cervical spine tenderness and around C4, mild left rib tenderness at around ribs 7. Patient demonstrates normal neurologic assessment although she does seem slightly slow in her speech however she does appear mildly intoxicated. She is not perseverating at this time on a few questions, but otherwise is ANO x 3. Concern is highest for concussion, but in addition to this differential certainly includes subdural, subarachnoid/intraparenchymal hemorrhage, less likely epidural. Migraine headache is less likely on the differential. Intoxication is clouding the picture. Will get x-rays of the chest/ribs, get a CT scan of the head neck, treat the patient's pain with fluids and Tylenol, monitor closely and reassess. 12:20 AM On reassessment patient has had a notable change in her disposition. She is talkative, interactive, has no perseverations, and feels much better. Headache has resolved. She has been rehydrated, she had Toradol and Tylenol. Laboratory workup is negative for any significant abnormalities aside for elevated alcohol. CT scan of the head neck and x-ray of the chest negative for acute process. These were reviewed with radiology. Patient stable for discharge with family/friend. Discussed red flags for which return. Diagnosis concussion. I have extensively reviewed the treatment plan and discharge instructions with the patient. I have addressed all patient concerns at this time. The patient was made aware of what symptoms to monitor for that would warrant a return to the emergency department. Discussed the plan with the patient, they demonstrate verbal understanding and agreement with our assessment and plan at this time. The documentation in this chart was dictated using [employer] dictation software. Please excuse any dictation errors. FINDINGS: Brain: No edema or hemorrhage. Cerebral ventricles: No ventriculomegaly. Paranasal sinuses: Minor mucosal thickening in paranasal sinuses most pronounced in the sphenoid sinuses which appears slightly sclerotic suggesting there is a chronic component no dislocation. No air-fluid levels. Mastoid air cells: No mastoid effusion. Bones: Unremarkable. No acute fracture. Soft tissues: No suspicious lesions. IMPRESSION: 1. No acute intracranial findings. 2. Sinus disease. FINDINGS: Bones: Straightening of the normal cervical lordosis. Rotational listhesis at C1-C2, likely related to head positioning. No acute fracture or subluxation. No significant degenerative changes are seen. Lungs: No consolidation. Soft tissues: No suspicious lesions. IMPRESSION: No cervical spine fracture. Thank you for allowing us to participate in the care of your patient. Dictated and Authenticated by: Radha Valenzuela MD 09/19/2023 11:08 PM Eastern Time ([place] & [place]) Addendum created by Radha Valenzuela MD on 09/19/2023 11:08 PM Eastern Time ([place] & [place]): Correction of a typographical error as follows: Paranasal sinuses: Minor mucosal thickening in paranasal sinuses most pronounced in the sphenoid sinuses which appears slightly sclerotic suggesting there is a chronic component at this location. No air-fluid levels. Initial Report created on 09/19/2023 11:08 PM Eastern Time ([place] & [place]): FINDINGS: Lungs: Unremarkable. No consolidation. Pleural spaces: Unremarkable. No pleural effusion. No pneumothorax. Heart/Mediastinum: Unremarkable. No cardiomegaly. Bones/joints: Unremarkable. IMPRESSION: No acute findings. Thank you for allowing us to participate in the care of your patient. Dictated and Authenticated by: Neftali Jimenez MD 09/19/2023 11:58 PM Eastern Time ([place] & [place]) Quality:SDOH Health Related Social Needs: No Data to Display PFSH All Active Problems (Updated 09/20/23 @ 00:19 by Tyler Perez DO) Headache (Acute) Concussion (Acute) UTI (urinary tract infection) (Acute) Environmental allergies (Acute) Pruritus (Acute) Post-nasal drip (Acute) Chronic rhinitis (Acute) Influenza (Acute) Medical History (Updated 09/20/23 @ 00:19 by Tyler Perez DO) Anxiety Surgical History History of ankle surgery Social History Smoking/Tobacco Use Status: Current every day Tobacco Type: cigarettes and e- cigarettes Smoking risk assessment performed?: Yes Alcohol Intake: current Alcohol Intake frequency: 0-2 drinks per day Alcohol type: beer, wine and hard liquor Drug use: Occasionally Substance use type: marijuana Housing: house Do you feel safe at home: Yes Do you feel safe in your relationship?: Yes
[2023-09-19 22:47] LABS: Abs Immature Grans 0.02 10^3/uL (0.0-0.06); Absolute Basophil Count 0.07 10^3/uL (0.0-0.2); Absolute Eosinophil Count 0.16 10^3/uL (0.0-0.7); Absolute Monocyte Count 0.62 10^3/uL (0.1-0.8); Absolute Neutrophil Count 5.19 10^3/uL (1.2-6.7); Basophils % 0.8 %; Eosinophils % 1.9 %; HCT 44.9 % (36.0-46.0); Immature Grans % 0.2 %; Lymphocytes % 26.6 %; MCH 33.4 pg (27.0-33.0); MCHC 33.4 % (32.0-36.0); MCV 100 fL (80-95); MPV 9.9 fL (8.0-11.0); Monocytes % 7.5 %; Platelet Count 233 10^3/uL (130-400); RBC 4.49 10^6/uL (3.93-5.22); RDW 11.8 % (11.7-14.6); RDW-SD 43.7 fL; WBC 8.26 10^3/uL (4.4-10.8)
[2023-09-19 22:53] LABS: Bilirubin Negative (Negative); Blood Trace-intact (Negative); Clarity Clear (Clear); Glucose Negative (Negative); Ketones Negative (Negative); Leukocyte Esterase Small (Negative); Nitrite Negative (Negative); Urobilinogen 0.2 mg/dL (Up to 0.2)
[2023-09-19] MEDS: ACETAMINOPHEN 1,000 MG/100 ML BTL 400 MG IVPB (22:56)
[2023-09-19] MEDS: Lactated Ringers 1,000 ML 1000 ML IV (22:56)
[2023-09-19 23:01] LABS: ALT 31 U/L (14-59); AST 34 U/L (15-37); Albumin 3.9 g/dL (3.4-5.0); Alkaline Phosphatase 35 U/L (46-116); Anion Gap 8.8 mmol/L (3-11); BUN 13 mg/dL (7-18); Bilirubin, Total 0.2 mg/dL (0.2-1.0); CO2 29.2 mmol/L (21.0-32.0); Calcium 8.4 mg/dL (8.5-10.1); Chloride 103 mmol/L (98-107); Glucose 101 mg/dL (74-106); Potassium 3.7 mmol/L (3.5-5.1); Sodium 141 mmol/L (136-145); Total Protein 8.3 g/dL (6.4-8.2)
[2023-09-19 23:02] LABS: Bacteria Few HPF (Negative); C & S Indicated? Yes; Casts Negative LPF (Negative); Crystals Negative HPF (Negative); ETHANOL BLOOD 325.8 mg/dL (<10); Epithelial Cells Rare HPF (Negative); Mucus Negative (Negative)
--- NOTE | 2023-09-19 23:08 | DI.VRAD_ITS ---
Addendum created by Radha Valenzuela MD on 09/19/2023 11:19:14 PM EDT: No intracranial hemorrhage with particular attention to the middle or anterior cranial fossa, there is some typical volume averaging artifact at these locations. Pertinent findings were discussed with JERRI CARNES at 09/19/2023 11:18 PM EDT. Addendum created by Radha Valenzuela MD on 09/19/2023 11:08:49 PM EDT: Correction of a typographical error as follows: Paranasal sinuses: Minor mucosal thickening in paranasal sinuses most pronounced in the sphenoid sinuses which appears slightly sclerotic suggesting there is a chronic component at this location. No air-fluid levels. Initial report created on 09/19/2023 11:08:19 PM EDT: PROCEDURE INFORMATION: Exam: CT Head Without Contrast Exam date and time: 09/19/2023 10:49 PM Age: 28 years old Clinical indication: Other: Fall, concussed, post/ant pain. R lateral c5 pain TECHNIQUE: Imaging protocol: Computed tomography of the head without contrast. Radiation optimization: All CT scans at this facility use at least one of these dose optimization techniques: automated exposure control; mA and/or kV adjustment per patient size (includes targeted exams where dose is matched to clinical indication); or iterative reconstruction. COMPARISON: No relevant prior studies available. FINDINGS: Brain: No edema or hemorrhage. Cerebral ventricles: No ventriculomegaly. Paranasal sinuses: Minor mucosal thickening in paranasal sinuses most pronounced in the sphenoid sinuses which appears slightly sclerotic suggesting there is a chronic component no dislocation. No air-fluid levels. Mastoid air cells: No mastoid effusion. Bones: Unremarkable. No acute fracture. Soft tissues: No suspicious lesions. IMPRESSION: 1. No acute intracranial findings. 2. Sinus disease. PROCEDURE INFORMATION: Exam: CT Cervical Spine Without Contrast Exam date and time: 09/19/2023 10:49 PM Age: 28 years old Clinical indication: Other: Fall, concussed, post/ant pain. R lateral c5 pain TECHNIQUE: Imaging protocol: Computed tomography of the cervical spine without contrast. Radiation optimization: All CT scans at this facility use at least one of these dose optimization techniques: automated exposure control; mA and/or kV adjustment per patient size (includes targeted exams where dose is matched to clinical indication); or iterative reconstruction. COMPARISON: CR XR THORACIC SPINE COMPLETE 12/13/2022 12:16 AM FINDINGS: Bones: Straightening of the normal cervical lordosis. Rotational listhesis at C1-C2, likely related to head positioning. No acute fracture or subluxation. No significant degenerative changes are seen. Lungs: No consolidation. Soft tissues: No suspicious lesions. IMPRESSION: No cervical spine fracture. Dictated and Authenticated by: Radha Valenzuela MD. Ordering:VERÓNICA Scott MD
[2023-09-19] MEDS: Ketorolac 30 MG/ML VIAL IVP (23:42)
--- NOTE | 2023-09-19 23:58 | DI.VRAD_ITS ---
PROCEDURE INFORMATION: Exam: XR Chest Exam date and time: 09/19/2023 10:56 PM Age: 28 years old Clinical indication: Other: Left lateral rib pain after fall TECHNIQUE: Imaging protocol: Radiologic exam of the chest. Views: 2 views. COMPARISON: CR XR CHEST 2V PA LATERAL 03/29/2021 3:24 PM FINDINGS: Lungs: Unremarkable. No consolidation. Pleural spaces: Unremarkable. No pleural effusion. No pneumothorax. Heart/Mediastinum: Unremarkable. No cardiomegaly. Bones/joints: Unremarkable. IMPRESSION: No acute findings. Dictated and Authenticated by: Neftali Jimenez MD. Ordering:VERÓNICA Scott MD
[2023-09-20 00:14] VITALS: BP 146/76; PULSE 84; RESP 18
[2023-09-20] MEDS: Fosfomycin Tromethamine 3 GM PACKET PO (00:24)
== END 2023-09-20 00:28 | disposition home or self-care (01) ==
PROVIDERS: Emergency Provider Student in an Organized Health Care Education/Training Program; PCP Family Medicine
DX: S06.0XAA Concussion with loss of consciousness status unknown, initial encounter (principal); R51.9 Headache, unspecified; M54.2 Cervicalgia; N39.0 Urinary tract infection, site not specified; F10.929 Alcohol use, unspecified with intoxication, unspecified; W19.XXXA Unspecified fall, initial encounter
CPT/HCPCS: 80053; 81025; 96361; 96374; 96375; 99284; 70450; 71046; 72125; 80320; 81003; 81015; 85025; 87086; 99283; J0131; J1885; J3490

== ENCOUNTER 2024-01-02 07:17 | Emergency (ER) | payer MEDICAID, SELFPAY ==
[2024-01-02 07:24] VITALS: BP 177/125; PULSE 134; RESP 18; TEMP 36.2; O2SAT 95
--- NOTE | 2024-01-02 07:55 | ED.GENADUL_ITS ---
Discharge Plan Disposition Patient Disposition: Home Condition: Stable Discharge Details Clinical Impression: Acute anterior epistaxis, Elevated blood pressure reading Primary Care Provider: Saman Veras ED Provider: Nick Alanis Home Meds and New Rx's Prescriptions: Continued epinephrine [EpiPen 2-Beto] 0.3 MG/0.3 ML auto-injector 0.3 mg IJ PRN PRNQty: 2 5RF cetirizine 10 mg tablet 10 mg PO DAILY Patient Comments: TAKE 1 TABLET BY MOUTH EVERY DAY hydroxyzine HCl 25 mg tablet See Rx Instructions .ROUTE .COMPLEX PRNQty: 20 0RF Rx Instructions: 25-50mg po q6-8h prn pruritis Discharge Instructions Instructions: High Blood Pressure ED, Nosebleeds ED Additional Instructions: Do not blow your nose over the next 24 hours. Please contact your primary care physician to arrange follow-up. Return to the ER immediately for any worsening or new concerning symptoms. Referrals: Saman Veras [Primary Care Provider] - Discharge Data Discharge Date/Time-TO BE ENTERED AT DEPARTURE: 01/02/24 10:18 HPI General Mode of arrival: ambulatory . Date/Time Provider Initiated Documentation: 01/02/24 07:19 . Limitations to Documentation: no limitations . Information obtained by: patient . HPI Narrative: 28-year-old female presents with epistaxis. Epistaxis started 2 hours ago and has persisted. Patient has associated nausea and anxiety. Patient notes hea lthcare related anxiety. No blood thinners. Bleeding has been from the left nostril. Related Data Home Medications ?Medication ?Instructions ?Recorded ?Confirmed epinephrine 0.3 mg/0.3 mL 0.3 mg (0.3 mL) IJ PRN PRN ##2 03/13/20 01/02/24 injection, auto-injector (EpiPen 2-Beto) cetirizine 10 mg tablet 10 mg PO DAILY 01/05/21 01/02/24 hydroxyzine HCl 25 mg tablet See Rx Instructions .Route 01/05/21 01/02/24 .COMPLEX PRN #20 tabs Previous Rx's ?Medication ?Instructions ?Recorded epinephrine 0.3 mg/0.3 mL 0.3 mg (0.3 mL) IJ PRN PRN ##2 03/13/20 injection, auto-injector (EpiPen 2-Beto) hydroxyzine HCl 25 mg tablet See Rx Instructions .Route 01/05/21 .COMPLEX PRN #20 tabs Allergies Allergy/AdvReac Type Severity Reaction Status Date / Time sulfacetamide AdvReac Intermediate Itching Verified 01/02/24 07:31 General Stated Complaint: Epistaxis GD: 3 Review of Systems ENT Ears, Nose, Mouth, and Throat: Reports as per HPI Exam Const General: cooperative and no acute distress HENMT Mouth: moist mucous membranes Throat: posterior oropharynx normal Other: Bleeding from left nare, oozing Eyes Conjunctivae: normal conjunctivae Sclera: normal sclerae Neck Neck: trachea midline and supple Resp Auscultation: clear to auscultation bilaterally, no rales, no rhonchi and no wheezes Cardio Rhythm: regular rhythm Neuro General: patient alert, patient awake and tone normal Psych Appearance: grossly normal Mental Status: mental status grossly normal Course Vital Signs Vital signs: Vital Signs Temperature 36.2 C L 01/02/24 07:24 Pulse 134 H 01/02/24 07:24 Respiratory Rate 18 01/02/24 07:24 Blood Pressure 177/125 H 01/02/24 07:24 Pulse Oximetry 95 01/02/24 07:24 Temperature 36.2 C L 01/02/24 07:24 Pulse 134 H 01/02/24 07:24 Respiratory Rate 18 01/02/24 07:24 Respiratory Effort Normal 01/02/24 07:26 Blood Pressure 177/125 H 01/02/24 07:24 Blood Pressure Position Sitting 01/02/24 07:24 Pulse Oximetry 95 01/02/24 07:24 Oxygen Delivery Method Room Air 01/02/24 07:24 Oxygen Flow Rate 0 01/02/24 07:24 Pain Level 3 01/02/24 07:24 Medical Decision Making 805 -- 28-year-old female here with epistaxis from her left nare. Bleeding has been ongoing for past 2 hours. Patient is hemodynamically stable. Clamp was applied and patient reassessed at 10 minutes and continues to have bleeding. Afrin was administered left nare. Plan to reassess. --Patient reassessed and bleeding stopped. --Patient reassessed and continues to have no bleeding from her nostril. Patient notes longstanding history of hypertension in healthcare settings. Patient was informed her blood pressure was elevated today. I instructed her to check her blood pressure at home or pharmacy and monitor. I instructed her to follow-up with her PCP as soon as possible. Quality:SDOH Health Related Social Needs: No Data to Display PFSH All Active Problems (Updated 01/02/24 @ 08:11 by Nick Alanis MD) Elevated blood pressure reading (Acute) Acute anterior epistaxis (Acute) Environmental allergies (Acute) Pruritus (Acute) Post-nasal drip (Acute) Chronic rhinitis (Acute) Influenza (Acute) Medical History (Updated 01/02/24 @ 08:11 by Nick Alanis MD) Anxiety Surgical History History of ankle surgery Social History Smoking/Tobacco Use Status: Current every day Tobacco Type: cigarettes and e- cigarettes Smoking risk assessment performed?: Yes Alcohol Intake: current Alcohol Intake frequency: 0-2 drinks per day Alcohol type: beer, wine and hard liquor Drug use: Occasionally Substance use type: marijuana Housing: house Do you feel safe at home: Yes Do you feel safe in your relationship?: Yes
[2024-01-02] MEDS: Acetaminophen 325 MG TAB 650 MG PO (08:23)
[2024-01-02] MEDS: Oxymetazolone 0.05% SPRAY 15 ML BTL (08:36)
[2024-01-02 10:17] VITALS: BP 136/92; PULSE 102; RESP 15; O2SAT 98
== END 2024-01-02 10:18 | disposition home or self-care (01) ==
PROVIDERS: Emergency Provider Student in an Organized Health Care Education/Training Program; PCP Family Medicine
DX: R04.0 Epistaxis (principal); R03.0 Elevated blood-pressure reading, without diagnosis of hypertension; R11.0 Nausea
CPT/HCPCS: 30903

== ENCOUNTER 2024-03-10 08:27 | Emergency (ER) | payer MEDICAID, SELFPAY ==
[2024-03-10 08:31] VITALS: BP 179/131; PULSE 124; RESP 18; TEMP 37; O2SAT 100
[2024-03-10 08:36] VITALS: BP 179/131; PULSE 124; RESP 18; TEMP 37; O2SAT 100
[2024-03-10] MEDS: Ketorolac 15 MG/ML VIAL IVP (09:11)
[2024-03-10] MEDS: Phenazopyridine 100 MG TAB PO (09:11)
[2024-03-10] MEDS: Acetaminophen 500 MG TAB 1000 MG PO (09:11)
[2024-03-10 09:20] LABS: Bilirubin Small (Negative); Blood Large (Negative); Clarity Cloudy (Clear); Glucose Negative (Negative); Ketones Trace mg/dL (Negative); Leukocyte Esterase Trace (Negative); Nitrite Positive (Negative); Specific Gravity >= 1.030 (1.005-1.025)
[2024-03-10 09:22] LABS: C & S Indicated? Yes; RBC >50 HPF (0-2)
--- NOTE | 2024-03-10 09:25 | ED.GENADUL_ITS ---
Discharge Plan Disposition Patient Disposition: Home Condition: Good Discharge Details Clinical Impression: Urinary tract infection Primary Care Provider: Saman Veras ED Provider: Tyler Perez Home Meds and New Rx's Prescriptions: New phenazopyridine [Pyridium] 100 mg tablet 100 mg PO TID PRNQty: 6 0RF cephalexin 500 mg capsule 500 mg PO QID 7 Days Qty: 28 0RF No Action epinephrine [EpiPen 2-Beto] 0.3 MG/0.3 ML auto-injector 0.3 mg IJ PRN PRNQty: 2 5RF cetirizine 10 mg tablet 10 mg PO DAILY Patient Comments: TAKE 1 TABLET BY MOUTH EVERY DAY hydroxyzine HCl 25 mg tablet See Rx Instructions .ROUTE .COMPLEX PRNQty: 20 0RF Rx Instructions: 25-50mg po q6-8h prn pruritis Discharge Instructions Instructions: Urinary Tract Infection, Adult ED Additional Instructions: At this time your workup shows evidence of urinary tract infection. Please take the antibiotic as directed. Please drink plenty of fluids and stay well- hydrated. Please take cranberry concentrate to help with UTI at this time. Please take the Pyridium only as prescribed. If you notice any worsening of your symptoms, or any new symptoms such as vomiting, diarrhea, fever, chills, shortness of breath, chest pain, numbness, weakness, or fainting , please return immediately to the emergency department for reevaluation. Please follow up with your primary care provider as soon as possible for reassessment and reevaluation. As always, it was a pleasure participating in your medical care today. Referrals: Saman Veras [Primary Care Provider] - [facility] General Date/Time Provider Initiated Documentation: 03/10/24 08:28 . [facility] Narrative: This is a pleasant 29-year-old female with a past medical history of anxiety, as well as left ankle surgery, presents today for evaluation of dysuria. Patient states that this morning she woke up and had notable urinary spasms, chills, and noticed that her urine was very dark. She came to the ER for further assessment. She denies any severe burning. She denies any nausea vomiting or diarrhea. She does admit to slight right-sided flank discomfort which is also new. She states that there is a questionable history of potentially having a kidney stone years ago when she was a child, but this was never confirmed. She denies any other complaints at this time. Last menstrual cycle was 2 weeks ago. No other modifying factors. Related Data Home Medications ?Medication ?Instructions ?Recorded ?Confirmed epinephrine 0.3 mg/0.3 mL 0.3 mg (0.3 mL) IJ PRN PRN ##2 03/13/20 03/10/24 injection, auto-injector (EpiPen 2-Beto) cetirizine 10 mg tablet 10 mg PO DAILY 01/05/21 03/10/24 hydroxyzine HCl 25 mg tablet See Rx Instructions .Route 01/05/21 03/10/24 .COMPLEX PRN #20 tabs cephalexin 500 mg capsule 500 mg PO QID 7 days #28 caps 03/10/24 phenazopyridine 100 mg tablet 100 mg PO TID PRN 6 doses #6 tabs 03/10/24 (Pyridium) Previous Rx's ?Medication ?Instructions ?Recorded epinephrine 0.3 mg/0.3 mL 0.3 mg (0.3 mL) IJ PRN PRN ##2 03/13/20 injection, auto-injector (EpiPen 2-Beto) hydroxyzine HCl 25 mg tablet See Rx Instructions .Route 01/05/21 .COMPLEX PRN #20 tabs cephalexin 500 mg capsule 500 mg PO QID 7 days #28 caps 03/10/24 phenazopyridine 100 mg tablet 100 mg PO TID PRN 6 doses #6 tabs 03/10/24 (Pyridium) Allergies Allergy/AdvReac Type Severity Reaction Status Date / Time sulfacetamide AdvReac Intermediate Itching Verified 03/10/24 08:37 General Stated Complaint: FlankPain DG: 3 Review of Systems All systems reviewed & are unremarkable except as noted in HPI and below Exam Narrative Exam Narrative: 1.Const: Well-nourished, Well-developed, appearing stated age 2.Eyes: PERRL, no conjunctival injection, and symmetrical lids. 3.ENT: Atraumatic external nose and ears. Moist MM. Neck: Symmetric, trachea midline, No thyromegaly. 4.CVS: +S1/S2, Peripheral pulses 2+ and equal in all extremities. Brisk capillary refill in all extremities. 5.RESP: Unlabored respiratory effort. Clear to auscultation bilaterally. No wheezes rales or rhonchi 6.GI: Soft, Nontender/Nondistended, mild suprapubic achiness back. Mild right- sided CVA tenderness 7.MSK: Normocephalic/Atraumatic, Extremities w/o deformity or ttp No cyanosis or clubbing, Normal movement of all extremities 8.Skin: Warm, Dry. No rashes or lesions. 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 Sensation grossly intact, no focal neurologic deficits. 10.Psych: (AAO) x3. Appropriate mood and affect Course Vital Signs Vital signs: Vital Signs Temperature 37.0 C 03/10/24 08:31 Pulse 124 H 03/10/24 08:31 Respiratory Rate 18 03/10/24 08:31 Blood Pressure 179/131 H 03/10/24 08:31 Pulse Oximetry 100 03/10/24 08:31 Temperature 37.0 C 03/10/24 08:36 Temperature Source Oral 03/10/24 08:36 Pulse 124 H 03/10/24 08:36 Respiratory Rate 18 03/10/24 08:36 Respiratory Effort Normal 03/10/24 08:35 Blood Pressure 179/131 H 03/10/24 08:36 Blood Pressure Position Sitting 03/10/24 08:36 Pulse Oximetry 100 03/10/24 08:36 Oxygen Delivery Method Room Air 03/10/24 08:36 Oxygen Flow Rate 0 03/10/24 08:36 Pain Level 7 03/10/24 09:11 Lab/Test Results Lab/Test Results: 03/10/24 08:45 Urine - Reflex from Ua Urine Culture - Pending Laboratory Tests Range/Units 03/10/24 08:45 Urine Color (Yellow) Red Urine Clarity (Clear) Cloudy Urine pH (5-8) 6.0 Ur Specific Moffett (1.005-1.025) >= 1.030 H Urine Protein (Neg-Trace) mg/dL >=300 H Urine Ketones (Negative) mg/dL Trace H Urine Blood (Negative) Large H Urine Nitrite (Negative) Positive H Urine Bilirubin (Negative) Small H Urine Urobilinogen (Up to 0.2) mg/dL 1.0 H Ur Leukocyte Esterase (Negative) Trace H Urine RBC (0-2) HPF >50 H Urine WBC Not Applicable Ur Epithelial Cells Not Applicable Urine Crystals Not Applicable Urine Bacteria Not Applicable Urine Mucus Not Applicable Ur Culture Indicated? Yes Urine Glucose (Negative) mg/dL Negative POC- Test(urine) Positive Medical Decision Making This is a pleasant 29-year-old female with a past medical history of anxiety, as well as left ankle surgery, presents today for evaluation of dysuria. Patient states that this morning she woke up and had notable urinary spasms, chills, and noticed that her urine was very dark. She came to the ER for further assessment. She denies any severe burning. She denies any nausea vomiting or diarrhea. She does admit to slight right-sided flank discomfort which is also new. She states that there is a questionable history of potentially having a kidney stone years ago when she was a child, but this was never confirmed. She denies any other complaints at this time. Last menstrual cycle was 2 weeks ago. No other modifying factors. Exam demonstrates very anxious appearing female, mild right CVA tenderness. Minimal suprapubic tenderness. No guarding or rebound otherwise. Patient is tachycardic and extremely anxious and nervous right now. Mucous membranes are moist, not overly dry. Suspect that the tachycardia and elevated blood pressure is secondary to her current anxiety level. She states that she is primarily anxious because of seeing the blood in her urine and this worries her significantly. Differential includes urolithiasis, UTI, less likely or ectopic. We will evaluate for these concerning etiologies, monitor closely and reassess. 10:56 AM Laboratory workup has returned and shows evidence of urinary tract infection with positive nitrites and leuk esterase. Mild white count. No bandemia. Renal function normal. On reassessment patient feels much better after NSAID therapy. test negative. No flank pain. Symptoms appear inconsistent with urolithiasis. Will treat for UTI, 2 g of ceftriaxone were given here, prescription for Keflex and Pyridium will be sent for home use. Discussed red flags which to return. I have extensively reviewed the treatment plan and discharge instructions with the patient. I have addressed all patient concerns at this time. The patient was made aware of what symptoms to monitor for that would warrant a return to the emergency department. Discussed the plan with the patient, they demonstrate verbal understanding and agreement with our assessment and plan at this time. The documentation in this chart was dictated using [employer] dictation software. Please excuse any dictation errors. Quality:SDOH Health Related Social Needs: No Data to Display [facility] All Active Problems (Updated 03/10/24 @ 10:57 by Tyler Perez DO) Urinary tract infection (Acute) Environmental allergies (Acute) Pruritus (Acute) Post-nasal drip (Acute) Chronic rhinitis (Acute) Influenza (Acute) Medical History (Updated 03/10/24 @ 10:57 by Tyler Perez DO) Anxiety Surgical History History of ankle surgery Social History Smoking/Tobacco Use Status: Current every day Tobacco Type: cigarettes and e- cigarettes Smoking risk assessment performed?: Yes Alcohol Intake: current Alcohol Intake frequency: 0-2 drinks per day Alcohol type: beer, wine and hard liquor Drug use: Occasionally Substance use type: marijuana Housing: house Do you feel safe at home: Yes Do you feel safe in your relationship?: Yes PAWSS Have you Been Recently Intoxicated or Drunk Within the Last 30 days?: No Have you Ever Experienced Previous Episodes of Alcohol Withdrawal?: No Have you ever Experienced Withdrawal Seizures?: No Have you ever Experienced Delirium Tremens(DT)s?: No Have you ever undergone Alcohol Rehabilitation Treatment (i.e, inpt ot outpatient treatment programs)?: No Have you ever Experienced Blackouts?: No Have you ever Combined Alcohol with other Downers within the last 90 days?: No Have you ever Combined Alcohol with any other Substance of Abuse during the last 90 days?: No Result: 0
[2024-03-10 09:26] LABS: Abs Immature Grans 0.05 10^3/uL (0.0-0.06); Absolute Basophil Count 0.05 10^3/uL (0.0-0.2); Absolute Eosinophil Count 0.07 10^3/uL (0.0-0.7); Absolute Lymphocyte Count 0.96 10^3/uL (1.2-3.4); Absolute Monocyte Count 0.76 10^3/uL (0.1-0.8); Basophils % 0.4 %; Eosinophils % 0.5 %; HCT 44.8 % (36.0-46.0); HGB 15.4 g/dL (11.2-15.7); Immature Grans % 0.4 %; Lymphocytes % 7.2 %; MCH 33.3 pg (27.0-33.0); MCHC 34.4 % (32.0-36.0); MCV 97 fL (80-95); MPV 9.2 fL (8.0-11.0); Monocytes % 5.7 %; Neutrophils % 85.8 %; Platelet Count 142 10^3/uL (130-400); RBC 4.62 10^6/uL (3.93-5.22); RDW 12.4 % (11.7-14.6); RDW-SD 44.4 fL; WBC 13.36 10^3/uL (4.4-10.8)
[2024-03-10 09:27] LABS: Absolute Neutrophil Count 11.46 10^3/uL (1.2-6.7)
[2024-03-10] MEDS: cefTRIAXone 2 GM/50 ML BAG IVPB (10:07)
[2024-03-10 10:46] LABS: ALT 54 U/L (14-59); AST 52 U/L (15-37); Albumin 4.3 g/dL (3.4-5.0); Alkaline Phosphatase 74 U/L (46-116); Anion Gap 14.8 mmol/L (3-11); BUN 7 mg/dL (7-18); Bilirubin, Total 1.46 mg/dL (0.2-1.0); CO2 29.2 mmol/L (21.0-32.0); Calcium 9.7 mg/dL (8.5-10.1); Chloride 98 mmol/L (98-107); Estimated GFR 78.21 (mL/min/1.73m2); Glucose 103 mg/dL (74-106); Potassium 3.6 mmol/L (3.5-5.1); Sodium 142 mmol/L (136-145); Total Protein 8.9 g/dL (6.4-8.2)
[2024-03-10 10:48] LABS: HCG Quant, Pregnancy < 1 mIU/mL (1-3)
[2024-03-10 11:36] VITALS: BP 125/87; PULSE 95; RESP 16; TEMP 36.4; O2SAT 99
--- NOTE | 2024-03-12 08:55 | NUR.NOTE ---
Accessed Pt chart to document the name of the prescriptions given to patient upon discharge. This is for the specimen paperwork, given to Dr Willis for review
--- NOTE | 2024-03-12 08:57 | W.EDPROG ---
Date of service: 03/10/24 Time of Service: 08:57 Medical Decision Making Culture results reviewed. Patient was prescribed cephalexin however based on the sensitivities, the bacteria does not appear to be sensitive to this medication. Will switch to nitrofurantoin. Prescription sent to the pharmacy and patient was updated. Quality:SDOH Health Related Social Needs: No Data to Display Discharge Plan Disposition Patient Disposition: Home Condition: Good Discharge Details Clinical Impression: Urinary tract infection Primary Care Provider: Saman Veras ED Provider: Tyler Perez Home Meds and New Rx's Prescriptions: New phenazopyridine [Pyridium] 100 mg tablet 100 mg PO TID PRNQty: 6 0RF cephalexin 500 mg capsule 500 mg PO QID 7 Days Qty: 28 0RF nitrofurantoin monohyd/m-cryst [Macrobid] 100 mg capsule 100 mg PO BID 5 Days Qty: 10 0RF Rx Instructions: must administer with a meal/food No Action epinephrine [EpiPen 2-Beto] 0.3 MG/0.3 ML auto-injector 0.3 mg IJ PRN PRNQty: 2 5RF cetirizine 10 mg tablet 10 mg PO DAILY Patient Comments: TAKE 1 TABLET BY MOUTH EVERY DAY hydroxyzine HCl 25 mg tablet See Rx Instructions .ROUTE .COMPLEX PRNQty: 20 0RF Rx Instructions: 25-50mg po q6-8h prn pruritis Discharge Instructions Instructions: Urinary Tract Infection, Adult ED Additional Instructions: At this time your workup shows evidence of urinary tract infection. Please take the antibiotic as directed. Please drink plenty of fluids and stay well-hydrated. Please take cranberry concentrate to help with UTI at this time. Please take the Pyridium only as prescribed. If you notice any worsening of your symptoms, or any new symptoms such as vomiting, diarrhea, fever, chills, shortness of breath, chest pain, numbness, weakness, or fainting , please return immediately to the emergency department for reevaluation. Please follow up with your primary care provider as soon as possible for reassessment and reevaluation. As always, it was a pleasure participating in your medical care today. Referrals: Saman Veras [Primary Care Provider] - Discharge Data Discharge Date/Time-TO BE ENTERED AT DEPARTURE: 03/10/24 11:36
== END 2024-03-10 11:36 | disposition home or self-care (01) ==
PROVIDERS: Emergency Provider Student in an Organized Health Care Education/Training Program; PCP Family Medicine
DX: N39.0 Urinary tract infection, site not specified (principal); F17.210 Nicotine dependence, cigarettes, uncomplicated; F17.290 Nicotine dependence, other tobacco product, uncomplicated
CPT/HCPCS: 00123; 36415; 80053; 81025; 87077; 96374; 96376; 99284; 81003; 81015; 84702; 85025; 87086; 87186; 99283; J0696; J1885

== ENCOUNTER 2024-03-23 16:36 | Emergency (ER) | payer MEDICAID, SELFPAY ==
[2024-03-23 16:40] VITALS: BP 162/107; PULSE 118; RESP 14; TEMP 36.8; O2SAT 96
--- NOTE | 2024-03-23 17:13 | W.ED.GENAD ---
Discharge Plan Disposition Patient Disposition: Home Condition: Stable Discharge Details Clinical Impression: Pharyngitis Primary Care Provider: Saman Veras ED Provider: Tyler James Home Meds and New Rx's Prescriptions: No Action epinephrine [EpiPen 2-Beto] 0.3 MG/0.3 ML auto-injector 0.3 mg IJ PRN PRNQty: 2 5RF cetirizine 10 mg tablet 10 mg PO DAILY Patient Comments: TAKE 1 TABLET BY MOUTH EVERY DAY hydroxyzine HCl 25 mg tablet See Rx Instructions .ROUTE .COMPLEX PRNQty: 20 0RF Rx Instructions: 25-50mg po q6-8h prn pruritis phenazopyridine [Pyridium] 100 mg tablet 100 mg PO TID PRNQty: 6 0RF Discharge Instructions Instructions: Sore Throat, Adult ED Additional Instructions: You were seen in the emergency department for your sore throat for the past few days. There was no white spots highly indicative of strep throat, your rapid strep is negative and culture is pending and should result tomorrow. Please drink tea with honey and perform salt water gargles 2-3 times per day as we discussed. Please use therapeutic dosing of Tylenol (acetamenophen) & Advil (ibuprofen) in an alternating fashion as follows: Take 1000mg of Tylenol every 6 hours without missing doses- that is 4 times per day. Senior [facility] in between the Tylenol dosings, take 400-600mg of Advil also on a 6 hour schedule, that is also 4 times per day. The daily maximum dosing of Tylenol is 4000mg, and the daily maximum dosing of Advil is 2400mg. This is safe to do for weeks. Please note that some common cold medications & prescription pain medications may contain acetamenophen and you need to read OTC drug labels and factor that in to maximum daily dosings. Please return to the emergency department for severe vocal changes, decreased range of motion of the jaw, excessive drooling, inability to tolerate p.o. intake Referrals: Saman Veras [Primary Care Provider] - Discharge Data Discharge Date/Time-TO BE ENTERED AT DEPARTURE: 03/23/24 17:25 HPI General Date/Time Provider Initiated Documentation: 03/23/24 17:02. HPI Narrative: 29 year-old female presents to ED today by POV/ambulating with a chief complaint of sore throat with onset over the past few days. Quality described as generalized sore throat, no radiation to dysphagia, vocal changes, trismus, excessive drooling, cough, shortness of breath, body aches, fever, ear pain, endorses nasal congestion. Severity is described as mild to moderate. Palliating factors include nothing specific attempted. Provoking factors include nothing specific. 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 Patient not anticoagulated. Related Data Home Medications ?Medication ?Instructions ?Recorded ?Confirmed epinephrine 0.3 mg/0.3 mL 0.3 mg (0.3 mL) IJ PRN PRN ##2 03/13/20 03/23/24 injection, auto-injector (EpiPen 2-Beto) cetirizine 10 mg tablet 10 mg PO DAILY 01/05/21 03/23/24 hydroxyzine HCl 25 mg tablet See Rx Instructions .Route 01/05/21 03/23/24 .COMPLEX PRN #20 tabs phenazopyridine 100 mg tablet 100 mg PO TID PRN 6 doses #6 tabs 03/10/24 03/23/24 (Pyridium) Previous Rx's ?Medication ?Instructions ?Recorded epinephrine 0.3 mg/0.3 mL 0.3 mg (0.3 mL) IJ PRN PRN ##2 03/13/20 injection, auto-injector (EpiPen 2-Beto) hydroxyzine HCl 25 mg tablet See Rx Instructions .Route 01/05/21 .COMPLEX PRN #20 tabs phenazopyridine 100 mg tablet 100 mg PO TID PRN 6 doses #6 tabs 03/10/24 (Pyridium) Allergies Allergy/AdvReac Type Severity Reaction Status Date / Time sulfacetamide AdvReac Intermediate Itching Verified 03/10/24 08:37 General Stated Complaint: Sorethroat DG: 4 Review of Systems All systems reviewed & are unremarkable except as noted in HPI and below Exam Narrative Exam Narrative: GENERAL APPEARANCE: Well-nourished, non-toxic, awake and alert, atraumatic, no acute distress. SKIN: Warm, pink, dry, intact, without rashes/lesions/ulcerations. HEAD: Normocephalic, atraumatic, normal hair distribution for gender/age. EYES: Normal conjunctiva, no exudates on lids/lashes. ENT: Nares patent, no circumoral cyanosis, no facial swelling, benign posterior oropharynx, no trismus, managing secretions well NECK: Supple, trachea midline, painless cervical ROM. LUNGS/CHEST: Lungs CTA bilaterally, non-labored respirations, normal A/P diameter, symmetrical expansion, no chest wall deformity HEART (CV/PV): Regular rate and rhythm without murmur, no peripheral edema, no JVD. ABDOMEN: Soft, non-distended, no guarding. MSK: Normal ROM, no swelling/deformity to bilateral UEs or LEs, moving all extremities without weakness, no cyanosis, spine midline without tenderness, normal curvature. NEURO: Mental Status AAOx4 - alert to person, place, time, events No facial droop, no forehead involvement. Motor: No focal weakness - strength 5/5 in bilateral UEs and LEs, proximal and distal, symmetric. Sensory: sensation intact to light touch globally. Gait normal: patient ambulated without ataxia into ED room. PSYCH: euthymic, cooperative, pleasant, appropriate speech Course Vital Signs Vital signs: Vital Signs Temperature 36.8 C 03/23/24 16:40 Pulse 118 H 03/23/24 16:40 Respiratory Rate 14 03/23/24 16:40 Blood Pressure 162/107 H 03/23/24 16:40 Pulse Oximetry 96 03/23/24 16:40 Temperature 36.8 C 03/23/24 16:40 Temperature Source Oral 03/23/24 16:40 Pulse 118 H 03/23/24 16:40 Respiratory Rate 14 03/23/24 16:40 Respiratory Effort Normal, Non-Labored 03/23/24 16:42 Blood Pressure 162/107 H 03/23/24 16:40 Blood Pressure Position Sitting 03/23/24 16:40 Pulse Oximetry 96 03/23/24 16:40 Oxygen Delivery Method Room Air 03/23/24 16:40 Oxygen Flow Rate 0 03/23/24 16:40 Pain Level 7 03/23/24 16:40 Lab/Test Results Lab/Test Results: 03/23/24 16:46 Tonsil - Not Specified Group A Streptococcus Culture - Pending POC Strep Test-JONNY(Rapid) Start: 03/23/24 16:50 Freq: Status: Complete Protocol: Document 03/23/24 17:00 N.NORK (Rec: 03/23/24 17:00 MONSE [id number]) Strep test-JONNY(Rapid)-POC POC-Strep test-JONNY (Rapid) Negative POC-Strep test-JONNY (Rapid) Negative Medical Decision Making This dictation utilizes [id number] dictation software and may contain unedited grammatical errors. 29 year-old female presents to ED today by POV/ambulating with a chief complaint of sore throat with onset over the past few days. Quality described as generalized sore throat, no radiation to dysphagia, vocal changes, trismus, excessive drooling, cough, shortness of breath, body aches, fever, ear pain, endorses nasal congestion. Severity is described as mild to moderate. Palliating factors include nothing specific attempted. Provoking factors include nothing specific. 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 Patients' medical history: Chronic rhinitis. Family and social history: Sick contacts and childcare Pertinent exam findings / vital signs include benign posterior oropharynx, lungs CTA, no trismus. Differential / pathologies of concern include upper respiratory infection, pharyngitis, sinusitis. Diagnostic studies of: -Rapid strep and culture, negative. Interventions of: -None. ED Course/Assessment/Plan: Counseled this patient that he likely has a viral pharyngitis at this time with a negative rapid strep but some I would send antibiotic should her culture returned positive tomorrow, recommend therapeutic dosing Tylenol and ibuprofen, tea with honey for symptomatic relief of sore throat, strict return criteria for vocal changes, inability to tolerate p.o. intake, trismus, excessive drooling. Findings not consistent with deep space infection, toxic illness, strep throat. Disposition of pharyngitis. Patient verbalized understanding of the plan and return to ED criteria and engaged in shared decision making. Medical Records Medical records reviewed: Yes I reviewed the patient's medical records. Lab Data Lab results reviewed: Yes I reviewed the patient's lab results. Lab results narrative: POC rapid strep negative Labs: 03/23/24 16:46 Tonsil - Not Specified Group A Streptococcus Culture - Pending Quality:SDOH Health Related Social Needs: No Data to Display PFSH All Active Problems (Updated 03/23/24 @ 17:17 by JACQUES Wing) Pharyngitis (Acute) Urinary tract infection (Acute) Environmental allergies (Acute) Pruritus (Acute) Post-nasal drip (Acute) Chronic rhinitis (Acute) Influenza (Acute) Medical History (Updated 03/23/24 @ 17:17 by JACQUES Wing) Anxiety Surgical History History of ankle surgery Social History Smoking/Tobacco Use Status: Current every day Tobacco Type: cigarettes and e-cigarettes Smoking risk assessment performed?: Yes Alcohol Intake: current Alcohol Intake frequency: 0-2 drinks per day Alcohol type: beer, wine and hard liquor Drug use: Occasionally Substance use type: marijuana Housing: house Do you feel safe at home: Yes Do you feel safe in your relationship?: Yes PAWSS Have you Been Recently Intoxicated or Drunk Within the Last 30 days?: No Have you Ever Experienced Previous Episodes of Alcohol Withdrawal?: No Have you ever Experienced Withdrawal Seizures?: No Have you ever Experienced Delirium Tremens(DT)s?: No Have you ever undergone Alcohol Rehabilitation Treatment (i.e, inpt ot outpatient treatment programs)?: No Have you ever Experienced Blackouts?: No Have you ever Combined Alcohol with other Downers within the last 90 days?: No Have you ever Combined Alcohol with any other Substance of Abuse during the last 90 days?: No Positive Blood Alcohol level on Presentation? [PCS.BAL]: No Evidence of Increased Autonomic Activity (i.e. HR>120, tremor, sweating, agitation, nausea)?: No Result: 0
== END 2024-03-23 17:25 | disposition home or self-care (01) ==
PROVIDERS: Emergency Provider Physician Assistant; PCP Family Medicine
DX: J02.9 Acute pharyngitis, unspecified (principal); F17.200 Nicotine dependence, unspecified, uncomplicated
CPT/HCPCS: 87880; 99282; 87081; 99283

== ENCOUNTER 2024-06-12 19:32 | Outpatient (REF) | payer MEDICAID, SELFPAY | END 2024-06-12 19:33 | disposition home or self-care (01) | LOC: LBN 19:32 | PROVIDERS: PCP Family Medicine; Visit Provider Physician Assistant Medical | DX: B34.9 Viral infection, unspecified (principal) | CPT/HCPCS: 87070 ==

== ENCOUNTER 2024-12-07 00:32 | Emergency (ER) | payer MEDICAID, SELFPAY ==
[2024-12-07 00:34] VITALS: BP 184/120; PULSE 128; RESP 18; TEMP 35.8; O2SAT 97
[2024-12-07 00:42] VITALS: BP 184/120; PULSE 128; RESP 18; TEMP 35.8; O2SAT 97
--- NOTE | 2024-12-07 00:55 | W.ED.GENAD ---
Discharge Plan Disposition Patient Disposition: Home Condition: Good Discharge Details Clinical Impression: Dental implant pain Primary Care Provider: Saman Veras ED Provider: Tyler Perez Home Meds and New Rx's Prescriptions: New amoxicillin 500 mg capsule 500 mg PO TID 10 Days Qty: 30 0RF No Action epinephrine [EpiPen 2-Beto] 0.3 MG/0.3 ML auto-injector 0.3 mg IJ PRN PRNQty: 2 5RF cetirizine 10 mg tablet 10 mg PO DAILY Patient Comments: TAKE 1 TABLET BY MOUTH EVERY DAY hydroxyzine HCl 25 mg tablet See Rx Instructions .ROUTE .COMPLEX PRNQty: 20 0RF Rx Instructions: 25-50mg po q6-8h prn pruritis phenazopyridine [Pyridium] 100 mg tablet 100 mg PO TID PRNQty: 6 0RF Discharge Instructions Instructions: Dental Pain Additional Instructions: At this time you do have evidence of what appears to be a small infection in your tooth located around the previous/implant. If you have worsening pain, please take 800 mg of ibuprofen every 6 hours and 1000 mg of Tylenol every 6 hours to help with the inflammation and pain. These are the maximum doses. Please take the antibiotic as directed to help with the infection in your tooth. Please use the dental list that we have provided to contact the dentist for prompt follow-up and evaluation for tooth removal. If you notice any worsening of your symptoms, or any new symptoms such as difficulty swallowing, difficulty breathing, vomiting, diarrhea, fever, chills, shortness of breath, chest pain, numbness, weakness, or fainting , please return immediately to the emergency department for reevaluation. Please follow up with your primary care provider as soon as possible for reassessment and reevaluation. As always, it was a pleasure participating in your medical care today. Referrals: Saman Veras [Primary Care Provider, Medicine] HPI General Date/Time Provider Initiated Documentation: 12/07/24 00:38. HPI Narrative: 29-year-old female who presents today for evaluation of bleeding from her lower molars. Patient states that for the last few weeks she has an impacted wisdom tooth that is pushing on all of her other teeth. In the area of the previous dental implant/On her left lower molar she has been noticing pain and occasional bleeding. Tonight she noticed more bleeding than normal as well as a clot which was quite concerning for her. She had previously had an established relationship with a dentist, however unfortunately the clinic is no longer able to take her at this time. She admits to this above. Achiness in that area. She denies any fever or chills. She denies any trauma. No other complaints at this time. She was not able to reestablish any new care with a new dentist. She denies any history of bleeding disorder, or family history of bleeding disorder. Related Data Home Medications ?Medication ?Instructions ?Recorded ?Confirmed epinephrine 0.3 mg/0.3 mL 0.3 mg (0.3 mL) IJ PRN PRN ##2 03/13/20 03/23/24 injection, auto-injector (EpiPen 2-Beto) cetirizine 10 mg tablet 10 mg PO DAILY 01/05/21 03/23/24 hydroxyzine HCl 25 mg tablet See Rx Instructions .Route 01/05/21 03/23/24 .COMPLEX PRN #20 tabs phenazopyridine 100 mg tablet 100 mg PO TID PRN 6 doses #6 tabs 03/10/24 03/23/24 (Pyridium) amoxicillin 500 mg capsule 500 mg PO TID 10 days #30 caps 12/07/24 Previous Rx's ?Medication ?Instructions ?Recorded epinephrine 0.3 mg/0.3 mL 0.3 mg (0.3 mL) IJ PRN PRN ##2 03/13/20 injection, auto-injector (EpiPen 2-Beto) hydroxyzine HCl 25 mg tablet See Rx Instructions .Route 01/05/21 .COMPLEX PRN #20 tabs phenazopyridine 100 mg tablet 100 mg PO TID PRN 6 doses #6 tabs 03/10/24 (Pyridium) amoxicillin 500 mg capsule 500 mg PO TID 10 days #30 caps 12/07/24 Allergies Allergy/AdvReac Type Severity Reaction Status Date / Time sulfacetamide AdvReac Intermediate Itching Verified 12/07/24 00:49 General Stated Complaint: DentalOral DG: 3 Exam Narrative Exam Narrative: 1.Const: Well-nourished, Well-developed, appearing stated age 2.Eyes: PERRL, no conjunctival injection, and symmetrical lids. 3.ENT: Atraumatic external nose and ears. Moist MM. Neck: Symmetric, trachea midline, No thyromegaly. On the left lower jaw in the posterior component in the second last molar there does appear to be a, just anterior to this there appears to be some bleeding coming from the inferior aspect of the In the gumline. There also appears to be mild tooth decay associated there as well. Clot was removed, and no subsequent hemorrhage. No periapical abscess. No signs of other gingival bleeding. 4.CVS: +S1/S2, Peripheral pulses 2+ and equal in all extremities. Brisk capillary refill in all extremities. 5.RESP: Unlabored respiratory effort. Clear to auscultation bilaterally. No wheezes rales or rhonchi 6.GI: Soft, Nontender/Nondistended, No hepatosplenomegaly. No guarding or rebound. 7.MSK: Normocephalic/Atraumatic, Extremities w/o deformity or ttp No cyanosis or clubbing, Normal movement of all extremities 8.Skin: Warm, Dry. No rashes or lesions. 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 Sensation grossly intact, no focal neurologic deficits. 10.Psych: (AAO) x3. Appropriate mood and affect Course Vital Signs Vital signs: Vital Signs Temperature 35.8 C L 12/07/24 00:34 Pulse 128 H 12/07/24 00:34 Respiratory Rate 18 12/07/24 00:34 Blood Pressure 184/120 H 12/07/24 00:34 Pulse Oximetry 97 12/07/24 00:34 Temperature 35.8 C L 12/07/24 00:42 Temperature Source Tympanic 12/07/24 00:42 Pulse 128 H 12/07/24 00:42 Respiratory Rate 18 12/07/24 00:42 Blood Pressure 184/120 H 12/07/24 00:42 Blood Pressure Position Sitting 12/07/24 00:42 Pulse Oximetry 97 12/07/24 00:42 Oxygen Delivery Method Room Air 12/07/24 00:42 Oxygen Flow Rate 0 12/07/24 00:42 Pain Level 8 12/07/24 00:42 Medical Decision Making 29-year-old female who presents today for evaluation of bleeding from her lower molars. Patient states that for the last few weeks she has an impacted wisdom tooth that is pushing on all of her other teeth. In the area of the previous dental implant/On her left lower molar she has been noticing pain and occasional bleeding. Tonight she noticed more bleeding than normal as well as a clot which was quite concerning for her. She had previously had an established relationship with a dentist, however unfortunately the clinic is no longer able to take her at this time. She admits to this above. Achiness in that area. She denies any fever or chills. She denies any trauma. No other complaints at this time. She was not able to reestablish any new care with a new dentist. She denies any history of bleeding disorder, or family history of bleeding disorder. On the left lower jaw in the posterior component in the second last molar there does appear to be a, just anterior to this there appears to be some bleeding coming from the inferior aspect of the In the gumline. There also appears to be mild tooth decay associated there as well. Clot was removed, and no subsequent hemorrhage. No periapical abscess. No signs of other gingival bleeding. No history of easy bruising, joint effusions, or family history of bleeding disorder. No evidence to suggest scurvy. Symptoms and current clinical exam seem to indicate evidence of potential tooth infection with potential root involvement leading to bleeding. There is also likely impaction issues secondary to the other wisdom teeth causing the tightening. Teabag was applied to the teeth, and no further bleeding occurred. Recommend antibiotic coverage in the meantime with amoxicillin. We did give the dental sheet to the patient to contact the dentist on the ER for potential surgical discussions and dental follow-up. Patient understands. Patient is extremely anxious in the situation, which led to an elevated heart rate, however after long conversation and discussing the situation patient felt significantly more at ease, and heart rate on personal auscultation dropped to the 90s. No fever to suggest systemic infection. No other abnormalities. Patient stable for discharge. Discussed red flags which to return. I have extensively reviewed the treatment plan and discharge instructions with the patient. I have addressed all patient concerns at this time. The patient was made aware of what symptoms to monitor for that would warrant a return to the emergency department. Discussed the plan with the patient, they demonstrate verbal understanding and agreement with our assessment and plan at this time. The documentation in this chart was dictated using [employer] dictation software. Please excuse any dictation errors. PFSH All Active Problems (Updated 12/07/24 @ 00:55 by Tyler Perez DO) Dental implant pain (Acute) Environmental allergies (Acute) Pruritus (Acute) Post-nasal drip (Acute) Chronic rhinitis (Acute) Influenza (Acute) Medical History (Updated 12/07/24 @ 00:55 by Tyler Perez DO) Anxiety Surgical History History of ankle surgery Social History Smoking/Tobacco Use Status: Current every day Tobacco Type: cigarettes and e-cigarettes Smoking risk assessment performed?: Yes Alcohol Intake: current Alcohol Intake frequency: 3 or more drinks per day Alcohol type: beer, wine and hard liquor Drug use: Occasionally Substance use type: marijuana Housing: house Do you feel safe at home: Yes Do you feel safe in your relationship?: Yes
[2024-12-07] MEDS: Amoxicillin 500 MG CAP PO (00:59)
== END 2024-12-07 01:02 | disposition home or self-care (01) ==
LOC: ER 01:05
PROVIDERS: Emergency Provider Student in an Organized Health Care Education/Training Program; PCP Family Medicine
DX: M27.69 Other endosseous dental implant failure (principal); F17.210 Nicotine dependence, cigarettes, uncomplicated; F17.290 Nicotine dependence, other tobacco product, uncomplicated
CPT/HCPCS: 99283

== ENCOUNTER 2025-02-20 00:56 | Emergency (ER) | payer MEDICAID, SELFPAY ==
[2025-02-20] VITALS (36 sets, daily range): BP systolic 72–153; BP diastolic 36–107; PULSE 102–155; RESP 9–30; TEMP 36.6; O2SAT 89–100
--- NOTE | 2025-02-20 00:45 | RT.EKG_ITS ---
APPROVED REPORT Exam: Resting ECG Reason for Exam: SOB/CHEST PAIN Patient Location: E HR:127 bpm ECG Measurements Heart Rate 127 AXIS MO 154 P 70 QRSd 84 QRS 90 QT 311 T 23 QTc 451 Conclusion Sinus tachycardia...rate> [address] segment or T wave abnormalities to suggest occlusive [place]
--- NOTE | 2025-02-20 01:00 | RT.EKG_ITS ---
APPROVED REPORT Exam: Resting ECG Reason for Exam: tachycardia Patient Location: E HR:100 bpm ECG Measurements Heart Rate 100 AXIS DE 140 P 72 QRSd 83 QRS 74 QT 354 T 53 QTc 457 Conclusion Sinus tachycardia...rate> [address] segment or T wave abnormalities to suggest occlusive [place]
[2025-02-20] MEDS: LORazepam 1 MG TAB 2 MG PO (01:29)
[2025-02-20 01:30] LABS: Abs Immature Grans 0.02 10^3/uL (0.0-0.06); BE (Venous) 2 mmol/L (-2-3); HCO3 (Venous) 25 mmol/L (23-28); HCT 39.7 % (36.0-46.0); HGB 14.2 g/dL (11.2-15.7); Immature Grans % 0.2 %; MCH 34.9 pg (27.0-33.0); MCHC 35.8 % (32.0-36.0); MCV 98 fL (80-95); MPV 10.5 fL (8.0-11.0); O2 Sat (Venous) 88 %; Platelet Count 145 10^3/uL (130-400); RBC 4.07 10^6/uL (3.93-5.22); RDW 11.9 % (11.7-14.6); RDW-SD 43.1 fL; TCO2 (Venous) 22 mmol/L (24-29); WBC 9.16 10^3/uL (4.4-10.8); pCO2 (Venous) 32 mmHg (41-51); pO2 (Venous) 52 mmHg
[2025-02-20 01:46] LABS: HCG Qual (Serum) Negative
[2025-02-20 01:55] LABS: ALT 106 U/L (14-59); AST 104 U/L (15-37); Albumin 3.6 g/dL (3.4-5.0); Alkaline Phosphatase 68 U/L (46-116); Anion Gap 16.5 mmol/L (3-11); BUN 4 mg/dL (7-18); Bilirubin, Total 0.8 mg/dL (0.2-1.0); CO2 24.5 mmol/L (21.0-32.0); Calcium 8.6 mg/dL (8.5-10.1); Chloride 98 mmol/L (98-107); Estimated GFR 88.20 (mL/min/1.73m2); Glucose 132 mg/dL (74-106); Lipase 168 U/L (<78); Magnesium 1.8 mg/dL (1.8-2.4); NT-proBNP 6 pg/mL (<300); Potassium 3.3 mmol/L (3.5-5.1); Sodium 139 mmol/L (136-145); Total Protein 7.6 g/dL (6.4-8.2)
[2025-02-20 01:56] LABS: Troponin I < 4 ng/L (<or=51)
[2025-02-20 02:00] LABS: D-Dimer 587 ng/mlFEU (<500)
--- NOTE | 2025-02-20 02:01 | DI.RAD_ITS ---
Exam(s) XR CHEST 2V PA LATERAL EXAM: XR CHEST 2V PA LATERAL CLINICAL HISTORY: Chest pain TECHNIQUE: 2D digital imaging was performed. Two views. COMPARISON: CR,XR XR CHEST 2V PA LATERAL from 09/19/2023 FINDINGS: HEART: Normal size. Aorta: Not dilated. PULMONARY VASCULATURE: Normal. MEDIASTINUM: Unremarkable. LUNGS: Clear. PLEURAL SPACE: No pleural effusion or pneumothorax. BONE:Levoscoliosis. SOFT TISSUES: Unremarkable. IMPRESSION: No acute abnormality. The preliminary [facility] report was reviewed. DATA REPOSITORY: RADIATION DOSE DELIVERED:
--- NOTE | 2025-02-20 02:13 | W.ED.GENAD ---
Discharge Plan Disposition Patient Disposition: Home Condition: Good Discharge Details Clinical Impression: Anxiety, Tachycardia, Hypokalemia, D-dimer, elevated, Liver mass Primary Care Provider: Saman Veras ED Provider: Aleshia Rushing Home Meds and New Rx's Prescriptions: Continued epinephrine [EpiPen 2-Beto] 0.3 MG/0.3 ML auto-injector 0.3 mg IJ PRN PRNQty: 2 5RF cetirizine 10 mg tablet 10 mg PO DAILY Patient Comments: TAKE 1 TABLET BY MOUTH EVERY DAY hydroxyzine HCl 25 mg tablet See Rx Instructions .ROUTE .COMPLEX PRNQty: 20 0RF Rx Instructions: 25-50mg po q6-8h prn pruritis Discharge Instructions Instructions: Hypokalemia, Sinus Tachycardia (DC), Anxiety, Adult ED Additional Instructions: Call your primary care doctor in the morning to schedule an appointment to be seen within the next 72 hours to followup on your visit here. At that visit you will need to discuss your high heart, low potassium (they may wish to repeat this test), and liver enzymes which are high here today. Your CT scan showed a lesion on your liver; your primary care doctor will need to followup on this. You will need to get an outpatient ultrasound to look for a blood clot in your legs. On Saturday morning please call radiology at the number you were given to see when you will need to come in. If you are not able to do this, please return to the emergency department. After your ultrasound, come to the emergency department for results. Return to the emergency department for new or worsening symptoms, including if your chest pain or shortness of breath return, you have palpitations, feel like you are going to pass out, or if you have any other concerns. Discharge Orders Other Ambulatory Orders: US extremity venous BI (Routine) Timeframe: 1 Day Facility: [facility] - Location: DIAGNOSTIC IMAGING Ordered By: Aleshia Rushing [facility] General Mode of arrival: ambulatory. Date/Time Provider Initiated Documentation: 02/20/25 00:56. Limitations to Documentation: no limitations. Information obtained by: patient. HPI Narrative: 30yo F with hx of allergies and anxiety presenting for chest pain and shortness of breath. About two hours prior to arrival she suddenly felt like she couldn't breathe and developed dull substernal chest pressure/tightness. Has has similar symptoms in the past with panic attacks but never this bad. Pain is dull, non-radiating, with no alleviating or aggravating factors. After this had been going on for awhile she began to notice bilateral upper extremity tingling and began to feel shaky and tremulous. She has been arguing with her ex recently which has been stressful but this was not going on immediately before this event. Also reports that her legs feel weak but this has been ongoing for months, nothing new today. No LE edema or leg pain. No history of heart or lung problems. No family history of congenital heart problems or sudden unexpected at a young age. Does think that someone in her family had a heart attack in their early 60's. Otherwise in her usual state of health with no fevers, chills, rash, nausea, vomiting, abdominal pain, cough, rhinnorhea, dysuria, hematuria, or other concerns. Related Data Home Medications ?Medication ?Instructions ?Recorded ?Confirmed epinephrine 0.3 mg/0.3 mL 0.3 mg (0.3 mL) IJ PRN PRN ##2 03/13/20 02/20/25 injection, auto-injector (EpiPen 2-Beto) cetirizine 10 mg tablet 10 mg PO DAILY 01/05/21 02/20/25 hydroxyzine HCl 25 mg tablet See Rx Instructions .Route 01/05/21 02/20/25 .COMPLEX PRN #20 tabs Previous Rx's ?Medication ?Instructions ?Recorded epinephrine 0.3 mg/0.3 mL 0.3 mg (0.3 mL) IJ PRN PRN ##2 03/13/20 injection, auto-injector (EpiPen 2-Beto) hydroxyzine HCl 25 mg tablet See Rx Instructions .Route 01/05/21 .COMPLEX PRN #20 tabs Allergies Allergy/AdvReac Type Severity Reaction Status Date / Time sulfacetamide AdvReac Intermediate Itching Verified 12/07/24 00:49 General Stated Complaint: Chest Pain DG: 3 Review of Systems Narrative: see HPI Exam Narrative Exam Narrative: General: Alert, well appearing, anxious Head: Normocephalic, atraumatic Neck: Trachea midline, ?Neck supple. ENT: ?MMM.? No oropharygeal lesions or exudate. Cardiac: ?Tachycardiac, regular, no murmurs appreciated Resp: No respiratory distress. CTAB. Abd: ?Soft, non-distended, nontender. No epigastric tenderness. : ?No suprapubic tenderness. No CVA tenderness. Extremities: ?No deformities.? No peripheral edema. No leg swelling. Neurologic: GCS 15. ? Moves all extremities freely against gravity. No abnormal movements. Course Vital Signs Vital signs: Vital Signs Temperature 36.6 C 02/20/25 00:59 Pulse 155 H 02/20/25 00:59 Respiratory Rate 26 H 02/20/25 00:59 Blood Pressure 153/107 H 02/20/25 00:59 Pulse Oximetry 96 02/20/25 00:59 Temperature 36.6 C 02/20/25 00:59 Temperature Source Tympanic 02/20/25 00:59 Pulse 110 H 02/20/25 01:45 Pulse 102 H 02/20/25 01:50 Respiratory Rate 14 02/20/25 01:50 Respiratory Effort Normal 02/20/25 01:02 Respiratory Depth Normal 02/20/25 01:02 Respiratory Pattern Normal 02/20/25 01:02 Blood Pressure 134/98 H 02/20/25 01:45 Blood Pressure Mean 110 02/20/25 01:45 Pulse Oximetry 99 02/20/25 01:45 Oxygen Delivery Method Room Air 02/20/25 00:59 Oxygen Flow Rate 0 02/20/25 00:59 Pain Level 5 02/20/25 01:02 Lab/Test Results Lab/Test Results: Laboratory Tests Range/Units 02/20/25 01:13 WBC (4.4-10.8) 10^3/uL 9.16 RBC (3.93-5.22) 10^6/uL 4.07 Hgb (11.2-15.7) g/dL 14.2 Hct (36.0-46.0) % 39.7 MCV (80-95) fL 98 H MCH (27.0-33.0) pg 34.9 H MCHC (32.0-36.0) % 35.8 RDW (11.7-14.6) % 11.9 Plt Count (130-400) 10^3/uL 145 MPV (8.0-11.0) fL 10.5 Immature Gran % % 0.2 Neutrophils % % 46.0 Lymphocytes % % 44.0 Monocytes % % 8.7 Eosinophils % % 0.7 Basophils % % 0.4 Nucleated RBC % (0.0-0.3) % 0.0 Absolute Neutrophils (1.2-6.7) 10^3/uL 4.21 Absolute Lymphocytes (1.2-3.4) 10^3/uL 4.03 H Absolute Monocytes (0.1-0.8) 10^3/uL 0.80 Absolute Eosinophils (0.0-0.7) 10^3/uL 0.06 Absolute Basophils (0.0-0.2) 10^3/uL 0.04 D-Dimer (<500) ng/mlFEU 587 H VBG pH (7.31-7.41) 7.50 H VBG pCO2 (41-51) mmHg 32 L VBG pO2 mmHg 52 VBG HCO3 (23-28) mmol/L 25 VBG Total CO2 (24-29) mmol/L 22 L VBG O2 Saturation % 88 VBG Base Excess (-2-3) mmol/L 2 Sodium (136-145) mmol/L 139 Potassium (3.5-5.1) mmol/L 3.3 L Chloride (98-107) mmol/L 98 Carbon Dioxide (21.0-32.0) mmol/L 24.5 Anion Gap (3-11) mmol/L 16.5 H BUN (7-18) mg/dL 4 L Creatinine (0.55-1.02) mg/dL 0.9 Est GFR (CKD-EPI 2020) (mL/min/1.73m2) 88.20 Glucose (74-106) mg/dL 132 H Calcium (8.5-10.1) mg/dL 8.6 Magnesium (1.8-2.4) mg/dL 1.8 Total Bilirubin (0.2-1.0) mg/dL 0.8 AST (15-37) U/L 104 H ALT (14-59) U/L 106 H Alkaline Phosphatase (46-116) U/L 68 Troponin I (<or=51) ng/L < 4 NT-Pro-B Natriuret Pep (<300) pg/mL 6 Total Protein (6.4-8.2) g/dL 7.6 Albumin (3.4-5.0) g/dL 3.6 Lipase (<78) U/L 168 H Serum HCG, Qual Negative Medical Decision Making 30yo F with hx of allergies and anxiety presenting for chest pain and shortness of breath. About two hours prior to arrival she suddenly felt like she couldn't breathe and developed dull substernal chest pressure/tightness. Has has similar symptoms in the past with panic attacks but never this bad. Recent stressors with ex-boyfriend, frequent arguments. Tachypneic and tachycardiac in triage to 150's (anxious, tearful at that time); improved to 120's without intervention once in room. Anxious on my exam; no respiratory distress, clear lungs, HR 110's on my assessment. Clinically consistent with panic attack; will treat initailly with 2mg PO ativan while working up for other causes. -EKG sinus tachycardia 120's, acceptable intervals, no ST segment or T wave abnormalities to suggest occlusive PR. Somewhat limit interp d/t motion artifact; will repeat when pt more calm -Labs reviewed as below, CBC reassuring with no leukocytosis or anemia, CMP with mild hypokalemia at 3.3 (oral replacement ordered), mildly elevated anion gap with no acidosis (unclear etiology, also elevated on most recent labs one year prior- will add on salicylate level given her hyperventilation), AST & ALT mildly elevated, lipase not suggestive of acute pancreatitis, VBG with respiratory alkalosis consistent with hyperventilation, BNP not suggestive of heart failure, initial troponin negative with one hour repeat unchanged (low risk HEART score, would not further pursue ACS/trend troponin/admit), dimer + and so will get CTA. negative. -CXR independently reviewed, no focal pneumonia or pneumothorax on my view, radiology read with no acute findings. -Repeat EKG reassuring, sinus at 100, acceptable intervals, no ST segment or T wave abnormalities to suggest occlusive PR. -CTA independently reviewed, no large saddle embolus or pneumonia or pleural effusion or pulmonary edema or pericardial effusion on my view; radiology read with no acute findings and incidentally noted hepatic steatosis with 2.2cm hepatic mass (will need PCP followup for this and her LFTs). On reassessment she reports her anxiety has improved and her shortness of breath and chest pain have resolved. She does remain tachycardiac consistently in the 100's-120's; of note has been on phone frequently with ex during this time. On [facility] record review she is often tachycardiac in this range; I discussed her HR with her and she attributes it to 'white coat anxiety', states it is usually high when in the ED or the doctor's office. She has nothing to suggest infection on history or exam. Labs including CBC, lytes, cardiac are all reassuring. Her other symptoms have improved with lorazapam. Not suggestive of pericarditis or myocarditis. Salicylate and TSH were added on and were normal. No toxidrome present on exam and she denies any ingestions. I discussed ETOH consumption with her and she is a daily drinker and has been cutting back slightly lately, last drink was earlier this evening. Given there may be a component of withdrawal, LIZZ ordered and was 5 (2 hours after receiving ativan). She is feeling back to normal and requests discharge home. I cannot definitively explain her tachycardia though I suspect (as does she) that it may be related to ongoing anxiety particular as she continues to actively engage with the stressful social situation she is in . There may be a component of mild alcohol withdrawal as well. Regardless, she does not want to stay for further workup and I have no clear indication for admission; I feel it is not unreasonable for her to go home with close PCP followup and strict return precautions. She was advised to followup with her PCP regarding her tachycardia, hypokalemia, LFTs, and CT findings. Given positive dimer, out of abundance of caution will get get outpatient LE DVT study though clinically no signs of this, very low suspcion, will not start AC. No risk factors for UE DVT. Discharged home. Discharge instructions and return precautions were reviewed with patient who verbalized understanding. All questions were answered and she is in full agreement with the plan. Medical Records Medical records reviewed: Yes I reviewed the patient's medical records. Lab Data Lab results reviewed: Yes I reviewed the patient's lab results. Labs: Laboratory Tests Range/Units 02/20/25 02/20/25 02/20/25 01:13 01:13 03:03 WBC (4.4-10.8) 10^3/uL 9.16 RBC (3.93-5.22) 10^6/uL 4.07 Hgb (11.2-15.7) g/dL 14.2 Hct (36.0-46.0) % 39.7 MCV (80-95) fL 98 H MCH (27.0-33.0) pg 34.9 H MCHC (32.0-36.0) % 35.8 RDW (11.7-14.6) % 11.9 Plt Count (130-400) 10^3/uL 145 MPV (8.0-11.0) fL 10.5 Immature Gran % % 0.2 Neutrophils % % 46.0 Lymphocytes % % 44.0 Monocytes % % 8.7 Eosinophils % % 0.7 Basophils % % 0.4 Nucleated RBC % (0.0-0.3) % 0.0 Absolute Neutrophils (1.2-6.7) 10^3/uL 4.21 Absolute Lymphocytes (1.2-3.4) 10^3/uL 4.03 H Absolute Monocytes (0.1-0.8) 10^3/uL 0.80 Absolute Eosinophils (0.0-0.7) 10^3/uL 0.06 Absolute Basophils (0.0-0.2) 10^3/uL 0.04 D-Dimer (<500) ng/mlFEU 587 H VBG pH (7.31-7.41) 7.50 H VBG pCO2 (41-51) mmHg 32 L VBG pO2 mmHg 52 VBG HCO3 (23-28) mmol/L 25 VBG Total CO2 (24-29) mmol/L 22 L VBG O2 Saturation % 88 VBG Base Excess (-2-3) mmol/L 2 Sodium (136-145) mmol/L 139 Potassium (3.5-5.1) mmol/L 3.3 L Chloride (98-107) mmol/L 98 Carbon Dioxide (21.0-32.0) mmol/L 24.5 Anion Gap (3-11) mmol/L 16.5 H BUN (7-18) mg/dL 4 L Creatinine (0.55-1.02) mg/dL 0.9 Est GFR (CKD-EPI 2020) (mL/min/1.73m2) 88.20 Glucose (74-106) mg/dL 132 H Calcium (8.5-10.1) mg/dL 8.6 Magnesium (1.8-2.4) mg/dL 1.8 Total Bilirubin (0.2-1.0) mg/dL 0.8 AST (15-37) U/L 104 H ALT (14-59) U/L 106 H Alkaline Phosphatase (46-116) U/L 68 Troponin I (<or=51) ng/L < 4 < 4 NT-Pro-B Natriuret Pep (<300) pg/mL 6 Total Protein (6.4-8.2) g/dL 7.6 Albumin (3.4-5.0) g/dL 3.6 Lipase (<78) U/L 168 H TSH (0.36-3.74) uIU/mL 1.29 Serum HCG, Qual Negative Salicylates (<2.8) mg/dL < 2.8 Add-On Test Request DONE DONE PFSH All Active Problems (Updated 02/20/25 @ 04:50 by Aleshia Rushing MD) Liver mass (Acute) D-dimer, elevated (Acute) Hypokalemia (Acute) Tachycardia (Acute) Anxiety (Chronic) Environmental allergies (Acute) Pruritus (Acute) Post-nasal drip (Acute) Chronic rhinitis (Acute) Influenza (Acute) Medical History (Updated 02/20/25 @ 04:50 by Aleshia Rushing MD) Anxiety Surgical History History of ankle surgery Social History Smoking/Tobacco Use Status: Current every day Tobacco Type: cigarettes and e-cigarettes Smoking risk assessment performed?: Yes Alcohol Intake: current Alcohol Intake frequency: 3 or more drinks per day Alcohol type: beer, wine and hard liquor Drug use: Socially Substance use type: marijuana Housing: house Do you feel safe at home: Yes Do you feel safe in your relationship?: Yes
--- NOTE | 2025-02-20 02:34 | DI.VRAD_ITS ---
PROCEDURE INFORMATION: Exam: XR Chest Exam date and time: 02/20/2025 1:59 AM Age: 30 years old Clinical indication: Chest pressure; Chest pain TECHNIQUE: Imaging protocol: Radiologic exam of the chest. Views: 2 views. COMPARISON: CR XR CHEST 2V PA LATERAL 09/19/2023 10:56 PM FINDINGS: Limitations: The lung apices are incompletely imaged. Lungs: No focal consolidation seen. Pleural spaces: No large pleural effusion seen. Heart/Mediastinum: No cardiomegaly. Bones/joints: No acute abnormality. IMPRESSION: No acute findings to explain reported symptoms. Dictated and Authenticated by: Gayle Simon MD. Orderin Kristan Monk MD
[2025-02-20] MEDS: Potassium Chloride Liquid 20 MEQ PKT 40 MEQ PO (02:40)
[2025-02-20] MEDS: Normal Saline - Diluent 50 ML VIAL IJ (03:13)
[2025-02-20] MEDS: Omnipaque 350 MG/ML 100 ML BTL IJ (03:13)
[2025-02-20] MEDS: Normal Saline Flush 10 ML SYR IVP (03:15)
--- NOTE | 2025-02-20 03:15 | DI.VRAD_ITS ---
PROCEDURE INFORMATION: Exam: CTA Chest With Contrast Exam date and time: 02/20/2025 2:42 AM Age: 30 years old Clinical indication: Chest pressure; Chest pain, tachycardia, + dimer TECHNIQUE: Imaging protocol: Computed tomographic angiography of the chest with contrast. Exam focused on the arteries. 3D rendering (Not supervised by radiologist): MIP and/or 3D reconstructed images were created by the technologist. Radiation optimization: All CT scans at this facility use at least one of these dose optimization techniques: automated exposure control; mA and/or kV adjustment per patient size (includes targeted exams where dose is matched to clinical indication); or iterative reconstruction. Contrast material: [id number]; Contrast volume: 65 ml; Contrast route: INTRAVENOUS (IV); COMPARISON: No relevant prior studies are available for comparison. FINDINGS: Limitations: Mild motion artifact. Pulmonary arteries: No pulmonary embolus is appreciated. Aorta: No thoracic aortic aneurysm seen. Lungs: No focal consolidation seen. Pleural spaces: No pleural effusion. Heart: No pericardial effusion. Lymph nodes: No acute abnormality seen. Liver: Hepatic steatosis. 2.2 cm enhancing mass in the hepatic dome. Consider nonemergent follow-up. Bones/joints: No acute pertinent abnormality seen. Soft tissues: No acute pertinent abnormality seen. IMPRESSION: 1. No acute findings to explain reported symptoms. 2. Nonacute findings for which follow-up may be indicated, as outlined above. Dictated and Authenticated by: Gayle Simon MD. Orderin Kristan Monk MD
--- NOTE | 2025-02-20 03:16 | DI.CT_ITS ---
Exam(s) CT CHEST PE CTA EXAM: CT CHEST PE CTA CLINICAL HISTORY: chest pain, tachycardia, + dimer. TECHNIQUE: Imaging Protocol: Axial CT angiography was performed with multi- slice acquisition and multi-planar reconstructions as well as axial, coronal and sagittal MIP reconstructions. Computer aided detection (CAD) was utilized. CONTRAST MATERIAL: Intravenous: Omnipaque 350 Contrast volume:65 ml COMPARISON: CT CT ABDOMEN PELVIS WO from 03/16/2022 CR,XR XR CHEST 2V PA LATERAL from 02/20/2025 FINDINGS: Pulmonary Arteries: No evidence of filling defect to suggest pulmonary emboli. Mediastinum and Susi: No dominant adenopathy or fluid collection. Pulmonary parenchyma: No consolidation or dominant measurable mass. Pleura: No effusion or pneumothorax. Heart: The heart is not dilated. No coronary artery calcifications are seen. Aorta: Thoracic aorta non-dilated. No dissection. Upper abdomen: The liver shows extreme fatty infiltration which appears new when compared with 2021. There is a 2.5 centimeter enhancing lesion near the dome. This was present on the 2021 exam but may have increased in size. The prior exam was a nonenhanced study. Bones: Unremarkable for age. Tubes, Catheters, and Lines: None Soft tissues: Unremarkable. IMPRESSION: No evidence of pulmonary embolism or other acute abnormality in the chest. 2.5 centimeter lesion at the dome of the liver further evaluation with MRI is recommended. Unexpected findings The preliminary [facility] report was reviewed. RADIATION DOSE DELIVERED: Total DLP DATA REPOSITORY: All CT scans at this facility are submitted to the National Radiology Data Registry (NRDR) Dose Index Registry (DIR) with the [employer] (ACR). RADIATION OPTIMIZATION: All CT scans at this facility use at least one of these dose optimization techniques: automated exposure control; mA and/or kV adjustment per patient size (includes targeted exams where dose is matched to clinical indication); or iterative reconstruction.
[2025-02-20 03:27] LABS: Troponin I < 4 ng/L (<or=51)
[2025-02-20 04:07] LABS: Lab Add On Test DONE
[2025-02-20 04:09] LABS: Lab Add On Test DONE
[2025-02-20 04:29] LABS: Salicylate < 2.8 mg/dL (<2.8)
[2025-02-20 04:39] LABS: TSH (W/Ref FT4) 1.29 uIU/mL (0.36-3.74)
--- NOTE | 2025-02-20 13:18 | NUR.NOTE ---
Nursing Note: Received call from patient with questions regarding her discharge paperwork. Discharge instructions were reviewed with patient via phone and DI phone number given for outpatient scheduling tomorrow
--- NOTE | 2025-02-22 08:45 | NUR.NOTE ---
Nursing Note: Received call from patient with questions about her discharge instructions. Asking why she was having an ultrasound of her legs and what the follow up plan was for her liver lesion. Updated patient on above and she verbalized understanding
--- NOTE | 2025-02-22 09:04 | NUR.NOTE ---
Access chart to get the information for an outpatient extremity legs. Nursing Note:
== END 2025-02-20 05:19 | disposition home or self-care (01) ==
PROVIDERS: Emergency Provider Student in an Organized Health Care Education/Training Program; PCP Family Medicine
DX: R07.9 Chest pain, unspecified; R79.89 Other specified abnormal findings of blood chemistry; R00.0 Tachycardia, unspecified; E87.6 Hypokalemia; F41.9 Anxiety disorder, unspecified; R16.0 Hepatomegaly, not elsewhere classified
CPT/HCPCS: 99284; 99285; 36415; 71275; 80053; 82805; 83690; 93005; 71046; 80329; 83735; 83880; 84443; 84484; 84703; 85025; 85379; 93010; J3490

== ENCOUNTER 2025-02-24 01:28 | Outpatient (CLI) | payer MEDICAID, SELFPAY ==
--- NOTE | 2025-02-23 08:36 | NUR.NOTE ---
Nursing Note: Pt called and was asking about her DVT study and how necessary it is. I read through her discharge note and the visit note and found that out of precaution, the provider wanted the US done due to an elevated D-Dimer. I spoke with the patient about the elevated lab and that this does not mean that she does absolutely have a clot somewhere; however, it can not be ruled out without the ultrasound. She was concerned because she did not have a ride for today and just wanted to make sure that she was not going to or cause more harm to her health if she puts it off until tomorrow. She denies any pain, swelling, red streaking. 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 She scheduled for tomorrow and plans to get her ultrasound done tomorrow.
--- NOTE | 2025-02-24 08:15 | DI.US_ITS ---
Exam(s) US EXTREMITY VENOUS BI EXAM: US EXTREMITY VENOUS BI CLINICAL HISTORY: lower extremity bilateral, ? blood clot,positive d dimer,r79.89. TECHNIQUE: Bilateral lower extremity venous ultrasound performed using grayscale, color-flow, and spectral Doppler analysis. COMPARISON: No exams were available for comparison FINDINGS: The bilateral common femoral, femoral and popliteal veins demonstrate normal compressibility, augmentation, and color Doppler. The posterior tibial and peroneal veins are patent. IMPRESSION: Right: Negative for DVT Left: Negative for DVT DATA REPOSITORY:
== END 2025-02-24 01:48 ==
LOC: DI 01:28
PROVIDERS: PCP Family Medicine; Visit Provider Nurse Practitioner Family
DX: R79.89 Other specified abnormal findings of blood chemistry (principal)
CPT/HCPCS: 93970

== ENCOUNTER 2025-02-24 14:56 | Emergency (ER) | payer MEDICAID, SELFPAY ==
[2025-02-24 14:58] VITALS: BP 130/90; PULSE 110; RESP 20; TEMP 36.9; O2SAT 96
--- NOTE | 2025-02-24 15:12 | W.ED.GENAD ---
Discharge Plan Disposition Patient Disposition: Home Condition: Stable Discharge Details Clinical Impression: Encounter to discuss test results Primary Care Provider: Saman Veras ED Provider: Marily Plunkett Home Meds and New Rx's Prescriptions: No Action epinephrine [EpiPen 2-Beto] 0.3 MG/0.3 ML auto-injector 0.3 mg IJ PRN PRNQty: 2 5RF cetirizine 10 mg tablet 10 mg PO DAILY Patient Comments: TAKE 1 TABLET BY MOUTH EVERY DAY hydroxyzine HCl 25 mg tablet See Rx Instructions .ROUTE .COMPLEX PRNQty: 20 0RF Rx Instructions: 25-50mg po q6-8h prn pruritis Discharge Instructions Instructions: Incidental Findings Additional Instructions: You were seen in the emergency department today for evaluation after having your ultrasound of your lower extremities completed. Reassuringly, this ultrasound did not show any sign of deep vein thrombosis in your legs. As we discussed, you have a visit with your primary care provider scheduled for the next few days to discuss the other incidental finding of a mass on your liver, and to discuss your ongoing symptoms. Your primary care office can request the results of the tests done in our hospital. Please keep that appointment, take all medications as prescribed, and thank you for allowing us to be part of your care. HPI General Mode of arrival: ambulatory. Date/Time Provider Initiated Documentation: 02/24/25 15:00. Limitations to Documentation: no limitations. Information obtained by: patient and old records reviewed. HPI Narrative: This is a 30-year-old female patient presenting to the emergency department to discuss results of a bilateral lower extremity DVT ultrasound. Please see the prior ED provider note for full details of her initial visit, which included symptoms of anxiety/panic attack, tachycardia and an elevation in her D-dimer, for which the ultrasound was ordered. She has an appointment with her primary care provider scheduled tomorrow to discuss the other incidental finding of liver mass on her workup. The patient reports that she has been feeling improved, does have some ongoing anxiety which she has been managing with some mindfulness and distraction techniques, denies new leg pain, swelling, and otherwise is without new symptoms today. Related Data Home Medications ?Medication ?Instructions ?Recorded ?Confirmed epinephrine 0.3 mg/0.3 mL 0.3 mg (0.3 mL) IJ PRN PRN ##2 03/13/20 02/20/25 injection, auto-injector (EpiPen 2-Beto) cetirizine 10 mg tablet 10 mg PO DAILY 01/05/21 02/20/25 hydroxyzine HCl 25 mg tablet See Rx Instructions .Route 01/05/21 02/20/25 .COMPLEX PRN #20 tabs Previous Rx's ?Medication ?Instructions ?Recorded epinephrine 0.3 mg/0.3 mL 0.3 mg (0.3 mL) IJ PRN PRN ##2 03/13/20 injection, auto-injector (EpiPen 2-Beto) hydroxyzine HCl 25 mg tablet See Rx Instructions .Route 01/05/21 .COMPLEX PRN #20 tabs Allergies Allergy/AdvReac Type Severity Reaction Status Date / Time sulfacetamide AdvReac Intermediate Itching Verified 02/24/25 15:01 General Stated Complaint: Recheck DG: 5 Exam Narrative Exam Narrative: Gen: Awake and alert, in no apparent distress HEENT: Non-icteric sclera Neck: Supple Lungs: No apparent respiratory distress, normal respiratory effort. CV: Appears well perfused, heart with tachycardic rate which is consistent with prior rates at numerous other visits Abdomen: Non-distended MSK: Moves 4 extremities without apparent limitation in ROM. No unilateral calf swelling or tenderness Skin: Visualized skin without rashes, cyanosis. Neuro: Normal Gait, no obvious focal deficits or facial asymmetry. Speaks in full, clear sentences. Psych: Appropriate for situation. Course Vital Signs Vital signs: Vital Signs Temperature 36.9 C 02/24/25 14:58 Pulse 110 H 02/24/25 14:58 Respiratory Rate 20 02/24/25 14:58 Blood Pressure 130/90 02/24/25 14:58 Pulse Oximetry 96 02/24/25 14:58 Temperature 36.9 C 02/24/25 14:58 Pulse 110 H 02/24/25 14:58 Respiratory Rate 20 02/24/25 14:58 Blood Pressure 130/90 02/24/25 14:58 Blood Pressure Position Sitting 02/24/25 14:58 Pulse Oximetry 96 02/24/25 14:58 Oxygen Delivery Method Room Air 02/24/25 14:58 Oxygen Flow Rate 0 02/24/25 14:58 Medical Decision Making This is a 30-year-old female patient presenting for evaluation to discuss ultrasound results. I did review the ultrasound study, which is negative for DVT bilaterally. My exam does not show any evidence of peripheral edema to suggest heart failure exacerbation, she appears well-perfused and I have low concern for phlegmasia or arterial occlusion. Her tachycardia is stable compared to priors and has been well-documented on other visits. I discussed these findings with the patient, and and pleased to see that she has a robust follow-up plan for her ongoing symptoms. At this time, the patient has had a full medical evaluation and is safe for discharge to home. They are hemodynamically stable, ambulatory, and tolerating PO. They are understanding of the follow-up plan and return precautions. They left our facility without incident. Marily Plunkett MD [facility] All Active Problems (Updated 02/24/25 @ 15:13 by Marily Plunkett MD) Encounter to discuss test results (Acute) Liver mass (Acute) D-dimer, elevated (Acute) Hypokalemia (Acute) Tachycardia (Acute) Anxiety (Chronic) Environmental allergies (Acute) Pruritus (Acute) Post-nasal drip (Acute) Chronic rhinitis (Acute) Influenza (Acute) Medical History (Updated 02/24/25 @ 15:13 by Marily Plunkett MD) Anxiety Surgical History History of ankle surgery Social History Smoking/Tobacco Use Status: Current every day Tobacco Type: cigarettes and e-cigarettes Smoking risk assessment performed?: Yes Alcohol Intake: current Alcohol Intake frequency: 3 or more drinks per day Alcohol type: beer, wine and hard liquor Drug use: Socially Substance use type: marijuana Housing: house Do you feel safe at home: Yes Do you feel safe in your relationship?: Yes
== END 2025-02-24 15:28 | disposition home or self-care (01) ==
PROVIDERS: Emergency Provider Emergency Medicine; PCP Family Medicine
DX: Z01.89 Encounter for other specified special examinations (principal)
CPT/HCPCS: 99282; 99281

== ENCOUNTER 2025-03-11 17:44 | Outpatient (REF) | payer MEDICAID, SELFPAY ==
[2025-03-11 21:02] LABS: RBC >50 HPF (0-2)
== END 2025-03-11 17:45 | disposition home or self-care (01) ==
LOC: LBN 17:44
PROVIDERS: PCP Family Medicine; Visit Provider Physician Assistant Medical
DX: R30.0 Dysuria (principal)
CPT/HCPCS: 87077; 81015; 87086

== ENCOUNTER 2025-04-03 15:22 | Emergency (ER) | payer MEDICAID, SELFPAY ==
[2025-04-03 15:24] VITALS: BP 167/112; PULSE 118; RESP 16; TEMP 36.6; O2SAT 98
--- NOTE | 2025-04-03 15:41 | W.ED.GENAD ---
Discharge Plan Disposition Patient Disposition: Home Condition: Stable Discharge Details Clinical Impression: Alcohol intoxication Primary Care Provider: Saman Veras ED Provider: Viktoriya Mason Home Meds and New Rx's Prescriptions: No Action epinephrine [EpiPen 2-Beto] 0.3 MG/0.3 ML auto-injector 0.3 mg IJ PRN PRNQty: 2 5RF cetirizine 10 mg tablet 10 mg PO DAILY Patient Comments: TAKE 1 TABLET BY MOUTH EVERY DAY hydroxyzine HCl 25 mg tablet See Rx Instructions .ROUTE .COMPLEX PRNQty: 20 0RF Rx Instructions: 25-50mg po q6-8h prn pruritis thiamine HCl (vitamin B1) 100 mg tablet 100 mg PO DAILY Patient Comments: TAKE ONE TABLET BY MOUTH EVERY DAY folic acid 1 mg tablet 1 mg PO DAILY Patient Comments: TAKE ONE TABLET BY MOUTH EVERY DAY Discharge Instructions Instructions: Alcohol Use Disorder ED, Alcohol Intoxication ED Additional Instructions: At this time your alcohol level is extremely high is over 400, unfortunately we do not do detox here. Please follow the instructions as given by the oil recovery operator. With [facility]. Your liver enzymes are elevated but they are less elevated than your previous visit. You may also call Nicole Mireles RN who can help you with alcohol withdrawal. Her phone number is [phone] Alcohol withdrawal can be fatal, however you do not appear to be in withdrawal at this time. You will probably start to go into withdrawal in the next 6 to 12 hours. Alcohol withdrawal symptoms consist of confusion, headache, tremors that are uncontrollable, visual hallucinations. If you have any of the symptoms please return to the emergency department. Follow up with primary care provider in 3-5 days. Return to ED sooner if any worsening or concerns. You have left prior to us getting the results of your abdominal CT. Stand Alone Forms: Portal Information Referrals: [facility] [Outside] - 1 day Referral Note: Call for further assistance Saman Veras [Primary Care Provider, Medicine] - 3 days Discharge Data Discharge Date/Time-TO BE ENTERED AT DEPARTURE: 04/03/25 18:19 HPI General Mode of arrival: ambulatory. Date/Time Provider Initiated Documentation: 04/03/25 15:26. Limitations to Documentation: altered mental status (Intoxicated ). Information obtained by: patient, RN notes reviewed and old records reviewed. HPI Narrative: 30-year-old female presents to the ER with obvious alcohol intoxication, she states that she just has not been feeling well and was recently told that she has a lesion on her liver. Her last drink was approximately 30 minutes prior to arrival. She recently was admitted into a detox facility and left. She denies any drug use denies any SI or HI does report nausea and vomiting. She does have hypertension and tachycardia upon arrival. Related Data Home Medications ?Medication ?Instructions ?Recorded ?Confirmed epinephrine 0.3 mg/0.3 mL 0.3 mg (0.3 mL) IJ PRN PRN ##2 03/13/20 04/03/25 injection, auto-injector (EpiPen 2-Beto) cetirizine 10 mg tablet 10 mg PO DAILY 01/05/21 04/03/25 hydroxyzine HCl 25 mg tablet See Rx Instructions .Route 01/05/21 04/03/25 .COMPLEX PRN #20 tabs folic acid 1 mg tablet 1 mg PO DAILY 04/03/25 04/03/25 thiamine HCl (vitamin B1) 100 mg 100 mg PO DAILY 04/03/25 04/03/25 tablet Previous Rx's ?Medication ?Instructions ?Recorded epinephrine 0.3 mg/0.3 mL 0.3 mg (0.3 mL) IJ PRN PRN ##2 03/13/20 injection, auto-injector (EpiPen 2-Beto) hydroxyzine HCl 25 mg tablet See Rx Instructions .Route 01/05/21 .COMPLEX PRN #20 tabs Allergies Allergy/AdvReac Type Severity Reaction Status Date / Time sulfacetamide AdvReac Intermediate Itching Verified 04/03/25 15:26 General Stated Complaint: ETOHWithdr DG: 3 Review of Systems All systems reviewed & are unremarkable except as noted in HPI and below Constitutional Constitutional: Reports as per HPI Gastrointestinal Gastrointestinal: Reports nausea and Reports vomiting Exam Narrative Exam Narrative: Constitutional: Alert and oriented x3. Appears stated age. Normal body habitus. Patient smells of EtOH and is slurring her words and appears acutely intoxicated. Head: Normocephalic, no trauma. Eyes: Pupils PERRL, Red reflex noted, EOM's intact. Eyelids symmetrical without lesions, discharge, or swelling. ENT: Bilateral TM's WNL, External ear normal to inspection, no mastoid TTP, swelling, or erythema, Nasal turbinates WNL, no nasal discharge. Normal dentition, Posterior pharynx WNL, no exudate. Chest: RRR, Normal S1, S2, distal pulses intact. Resp: Lungs clear to auscultation bilaterally, no wheezes, rales, or rhonchi. Abdomen: Soft, non-distended, Normoactive bowel sounds all 4 quads. Musculoskeletal: Normal gait, Moves all 4 extremities without difficulty. Skin: No suspicious rashes or lesions. Capillary refill less than 2 sec. Neurologic: Cranial nerves II-XII intact. Alert and oriented x 3. Motor: No deficits noted. Sensory: Intact bilaterally all 4 extremities. Hematologic/Lymphatic: No ecchymosis, no lymphadenopathy. Course Vital Signs Vital signs: Vital Signs Temperature 36.6 C 04/03/25 15:24 Pulse 118 H 04/03/25 15:24 Respiratory Rate 16 04/03/25 15:24 Blood Pressure 167/112 H 04/03/25 15:24 Pulse Oximetry 98 04/03/25 15:24 Temperature 36.6 C 04/03/25 15:24 Pulse 118 H 04/03/25 15:24 Respiratory Rate 16 04/03/25 15:24 Blood Pressure 167/112 H 04/03/25 15:24 Pulse Oximetry 98 04/03/25 15:24 Pain Level 0 04/03/25 15:24 Medical Decision Making 30-year-old female presents to the ER with obvious alcohol intoxication, she states that she just has not been feeling well and was recently told that she has a lesion on her liver. Her last drink was approximately 30 minutes prior to arrival. She recently was admitted into a detox facility and left. She denies any drug use denies any SI or HI does report nausea and vomiting. She does have hypertension and tachycardia upon arrival. Workup ordered including CBC CMP alcohol level, urinalysis hCG, magnesium UDS and a liter of normal saline, [facility] oil recovery operator called to speak with patient. 1732: Patient requesting to have her IV out and is escalating and becoming anxious. CBC shows no leukocytosis, CMP shows an anion gap at 12.5, AST 65 ALT 60, lipase is 75, her ethyl alcohol level is 423.4, urine drug screen is negative. Awaiting CT result. Patient is requesting to leave, friends who are here with her are encouraging her to stay. 1807: Patient continues to become more agitated and is requesting to leave department. Patient discharged into the care of her friends. CT shows an interval increase in size of the lesion in the liver they recommend an MRI outpatient for further evaluation. Unfortunately however the patient has already left the department prior to discussion of the CT results. Patient left prior to the resulting of the CT. I did give her information to follow-up with her primary care provider or to return for any worsening or concerns. Patient was ambulatory without assistance upon leaving the facility. This text was generated using [employer] system, please disregard any oddities of phrase or misspellings. Imaging Data Radiologic Study: Imaging: CT Scan Radiologist's impression: FINDINGS: Lungs: The lung bases are clear. Liver: There is a 2.8 cm round well-circumscribed hypodense lesion in the right hepatic lobe (image 12, series 8). This lesion has increased in size since the prior examination in 2021, previously 1.8 cm. There is heterogeneity within the lesion containing hyperdense regions. Gallbladder and biliary ducts: The gallbladder is unremarkable. No calcified stones. No ductal dilation. Pancreas: Normal. No ductal dilation. Spleen: Normal. No splenomegaly. Adrenal glands: The adrenal glands are unremarkable. No defined mass. Kidneys and ureters: The kidneys are unremarkable. No hydronephrosis. Stomach and bowel: No obstruction. No mucosal thickening. Appendix: No evidence of appendicitis. Intraperitoneal space: No free air. No significant fluid collection. Vasculature: No abdominal aortic aneurysm. Lymph nodes: No enlarged lymph nodes. Urinary bladder: Unremarkable urinary bladder. Reproductive: Unremarkable as visualized. Bones/joints: Unremarkable. No acute fracture. Soft tissues: Unremarkable. IMPRESSION: 1. No evidence of bowel obstruction or acute bowel inflammation. 2. Interval increase in size of hypodense lesion in the liver as described. If the etiology of this lesion is unknown, nonemergent MRI is recommended for further evaluation. Thank you for allowing us to participate in the care of your patient. Dictated and Authenticated by: Wendie Pace MD Lab Data Lab results reviewed: Yes I reviewed the patient's lab results. Labs: Laboratory Tests Range/Units 04/03/25 04/03/25 04/03/25 15:35 15:46 16:38 WBC (4.4-10.8) 10^3/uL 8.18 RBC (3.93-5.22) 10^6/uL 4.37 Hgb (11.2-15.7) g/dL 15.2 Hct (36.0-46.0) % 43.6 MCV (80-95) fL 100 H MCH (27.0-33.0) pg 34.8 H MCHC (32.0-36.0) % 34.9 RDW (11.7-14.6) % 11.6 L Plt Count (130-400) 10^3/uL 220 MPV (8.0-11.0) fL 10.0 Immature Gran % % 0.2 Neutrophils % % 36.8 Lymphocytes % % 54.0 Monocytes % % 7.2 Eosinophils % % 1.1 Basophils % % 0.7 Nucleated RBC % (0.0-0.3) % 0.0 Absolute Neutrophils (1.2-6.7) 10^3/uL 3.00 Absolute Lymphocytes (1.2-3.4) 10^3/uL 4.42 H Absolute Monocytes (0.1-0.8) 10^3/uL 0.59 Absolute Eosinophils (0.0-0.7) 10^3/uL 0.09 Absolute Basophils (0.0-0.2) 10^3/uL 0.06 Sodium (136-145) mmol/L 145 Potassium (3.5-5.1) mmol/L 3.5 Chloride (98-107) mmol/L 104 Carbon Dioxide (20.0-31.0) mmol/L 28.5 Anion Gap (3-11) mmol/L 12.5 H BUN (9-23) mg/dL 6 L Creatinine (0.55-1.02) mg/dL 0.63 Est GFR (CKD-EPI 2020) (mL/min/1.73m2) 110.86 Glucose (74-106) mg/dL 93 Calcium (8.3-10.6) mg/dL 9.1 Magnesium (1.6-2.6) mg/dL 2.2 Total Bilirubin (0.2-1.2) mg/dL 0.40 AST (<34) U/L 65 H ALT (10-49) U/L 60 H Alkaline Phosphatase (46-116) U/L 69 Ammonia (11-32) umol/L < 10 L Total Protein (5.7-8.2) g/dL 8.3 H Albumin (3.2-5.0) g/dL 4.9 Lipase (<53) U/L 75 H Serum HCG, Qual Negative Urine Color (Yellow) Yellow Urine Clarity (Clear) Clear Urine pH (5-8) 6.5 Ur Specific [place] (1.005-1.025) 1.010 Urine Protein (Neg-Trace) mg/dL Negative Urine Ketones (Negative) mg/dL Negative Urine Blood (Negative) Negative Urine Nitrite (Negative) Negative Urine Bilirubin (Negative) Negative Urine Urobilinogen (Up to 0.2) mg/dL 0.2 Ur Leukocyte Esterase (Negative) Negative Urine Glucose (Negative) mg/dL Negative Urine Opiates Screen (Negative) Negative Urine Methadone Screen (Negative) Negative Ur Barbiturates Screen (Negative) Negative Ur Tricyclics Screen (Negative) Negative Ur Amphetamines Screen (Negative) Negative U Benzodiazepines Scrn (Negative) Negative Urine Cocaine Screen (Negative) Negative Ethyl Alcohol (<3) mg/dL 423.4 H PFSH All Active Problems (Updated 04/03/25 @ 17:36 by Viktoriya Mason NP) Alcohol intoxication (Acute) Environmental allergies (Acute) Pruritus (Acute) Post-nasal drip (Acute) Chronic rhinitis (Acute) Influenza (Acute) Medical History (Updated 04/03/25 @ 17:36 by Viktoriya Mason NP) Anxiety Surgical History History of ankle surgery Social History Smoking/Tobacco Use Status: Current every day Tobacco Type: cigarettes and e-cigarettes Smoking risk assessment performed?: Yes Alcohol Intake: current Alcohol Intake frequency: 3 or more drinks per day Alcohol type: beer, wine and hard liquor Drug use: Socially Substance use type: marijuana Housing: house Do you feel safe at home: Yes Do you feel safe in your relationship?: Yes
--- NOTE | 2025-04-03 15:45 | DI.CT_ITS ---
Exam(s) CT ABDOMEN PELVIS W EXAM: CT ABDOMEN PELVIS W CLINICAL HISTORY: Nausea, TECHNIQUE: Imaging Protocol: Axial computed tomography images with coronal and sagittal reformatted images were created and reviewed. CONTRAST MATERIAL: Intravenous: Omnipaque 350 Contrast volume:70 mL Oral: No COMPARISON: CT CT ABDOMEN PELVIS WO from 03/16/[address] CHEST PE CTA from 02/20/2025 FINDINGS: ABDOMEN: Lung Bases: No acute abnormality. Liver: There is diffuse decreased attenuation of the liver suggesting fatty infiltration. There is again seen a 2.5 x 3.0 cm well-circumscribed hypodense mass in the right lobe of the liver. There are no other hepatic lesions. Portal, Superior Mesenteric, and Splenic Veins: Unremarkable. Gallbladder and Biliary Tract: No radiodense calculus or dilation. Pancreas: Normal density, no abnormal calcifications or inflammatory process. Spleen: Normal. Adrenals: No masses seen. Kidneys: Normal size, contour and axis. No radiodense stones or obstructive uropathy. There is a tiny hypodensity in the left renal cortex measuring 5 mm. It is too small for further characterization but likely reflects a small cyst. There is an associated area of scarring present. No follow-up is recommended. Abdominal Aorta: Abdominal portion non-dilated. Bowel: There are few diverticula seen in the colon but no evidence of acute diverticulitis. There is no evidence of bowel obstruction or bowel wall thickening. There is no evidence of an appendicitis. Peritoneal Cavity: No ascites, collection or mesenteric inflammatory response. No free air. Lymph Nodes: Within normal limits. Bones: Within normal limits for the patient's age. Soft Tissues: There is a small fat containing umbilical hernia. PELVIS: Bladder: Symmetric distention, no gross wall thickening. Reproductive Organs: Unremarkable as visualized. Lymph Nodes: Within normal limits. Bones: Within normal limits for the patient's age. IMPRESSION: 1. No acute abdominal or pelvic process. 2. Hepatic steatosis. 3. 2.5 x 3.6 cm well-circumscribed hypodense right hepatic mass. MRI is recommended for further evaluation. 4. The preliminary [facility] report was reviewed. Unexpected findings RADIATION DOSE DELIVERED: 285.05mGy.cm Total DLP DATA REPOSITORY: All CT scans at this facility are submitted to the National Radiology Data Registry (NRDR) Dose Index Registry (DIR) with the [employer] (A[employer]). RADIATION OPTIMIZATION: All CT scans at this facility use at least one of these dose optimization techniques: automated exposure control; mA and/or kV adjustment per patient size (includes targeted exams where dose is matched to clinical indication); or iterative reconstruction.
[2025-04-03] MEDS: Normal Saline 1,000 ML 1000 ML IV (15:50)
[2025-04-03 15:51] LABS: Abs Immature Grans 0.02 10^3/uL (0.0-0.06); HCT 43.6 % (36.0-46.0); HGB 15.2 g/dL (11.2-15.7); Immature Grans % 0.2 %; MCH 34.8 pg (27.0-33.0); MCHC 34.9 % (32.0-36.0); MCV 100 fL (80-95); MPV 10.0 fL (8.0-11.0); Platelet Count 220 10^3/uL (130-400); RBC 4.37 10^6/uL (3.93-5.22); RDW 11.6 % (11.7-14.6); RDW-SD 43.0 fL; WBC 8.18 10^3/uL (4.4-10.8)
[2025-04-03 16:07] LABS: Lipase 75 U/L (<53)
[2025-04-03 16:08] LABS: Magnesium 2.2 mg/dL (1.6-2.6)
[2025-04-03 16:09] LABS: ALT 60 U/L (10-49); AST 65 U/L (<34); Albumin 4.9 g/dL (3.2-5.0); Alkaline Phosphatase 69 U/L (46-116); Anion Gap 12.5 mmol/L (3-11); BUN 6 mg/dL (9-23); Bilirubin, Total 0.40 mg/dL (0.2-1.2); CO2 28.5 mmol/L (20.0-31.0); Calcium 9.1 mg/dL (8.3-10.6); Chloride 104 mmol/L (98-107); Glucose 93 mg/dL (74-106); Potassium 3.5 mmol/L (3.5-5.1); Sodium 145 mmol/L (136-145); Total Protein 8.3 g/dL (5.7-8.2)
[2025-04-03 16:25] LABS: Ammonia < 10 umol/L (11-32)
[2025-04-03 16:26] LABS: HCG Qual (Serum) Negative
[2025-04-03] MEDS: Normal Saline - Diluent 50 ML VIAL IJ (16:42)
[2025-04-03] MEDS: Omnipaque 350 MG/ML 100 ML BTL IJ (16:44)
[2025-04-03 17:01] VITALS: BP 152/98; PULSE 108; RESP 18
[2025-04-03 17:08] LABS: Glucose Negative (Negative)
[2025-04-03 18:17] VITALS: BP 158/104; PULSE 110; RESP 18; O2SAT 99
--- NOTE | 2025-04-03 18:19 | DI.[facility]AD_ITS ---
Addendum created by Wendie Purvis MD on 04/03/2025 6:32:54 PM EST: THIS REPORT CONTAINS FINDINGS THAT MAY BE CRITICAL TO PATIENT CARE. TEODORO PICHARDO confirmed via telephone conference at 04/03/2025 6:20 PM EST that the findings of this report are acknowledged and understood. Initial report created on 04/03/2025 6:19:17 PM EST: PROCEDURE INFORMATION: Exam: CT Abdomen And Pelvis With Contrast Exam date and time: 04/03/2025 4:46 PM Age: 30 years old Clinical indication: Nausea TECHNIQUE: Imaging protocol: Computed tomography of the abdomen and pelvis with contrast. Contrast material: OMNI 350; Contrast volume: 70 ml; Contrast route: INTRAVENOUS (IV); COMPARISON: CT ABDOMEN PELVIS WO 03/16/2022 5:10 PM FINDINGS: Lungs: The lung bases are clear. Liver: There is a 2.8 cm round well-circumscribed hypodense lesion in the right hepatic lobe (image 12, series 8). This lesion has increased in size since the prior examination in 2021, previously 1.8 cm. There is heterogeneity within the lesion containing hyperdense regions. Gallbladder and biliary ducts: The gallbladder is unremarkable. No calcified stones. No ductal dilation. Pancreas: Normal. No ductal dilation. Spleen: Normal. No splenomegaly. Adrenal glands: The adrenal glands are unremarkable. No defined mass. Kidneys and ureters: The kidneys are unremarkable. No hydronephrosis. Stomach and bowel: No obstruction. No mucosal thickening. Appendix: No evidence of appendicitis. Intraperitoneal space: No free air. No significant fluid collection. Vasculature: No abdominal aortic aneurysm. Lymph nodes: No enlarged lymph nodes. Urinary bladder: Unremarkable urinary bladder. Reproductive: Unremarkable as visualized. Bones/joints: Unremarkable. No acute fracture. Soft tissues: Unremarkable. IMPRESSION: 1. No evidence of bowel obstruction or acute bowel inflammation. 2. Interval increase in size of hypodense lesion in the liver as described. If the etiology of this lesion is unknown, nonemergent MRI is recommended for further evaluation. Dictated and Authenticated by: Wendie Purvis MD. Orderin Isabella Sadler MD
[2025-04-08 16:56] LABS: Cannabinoids THC Negative (Negative)
== END 2025-04-03 18:19 | disposition home or self-care (01) ==
PROVIDERS: Emergency Provider Registered Nurse Emergency; PCP Family Medicine
DX: F10.920 Alcohol use, unspecified with intoxication, uncomplicated (principal)
CPT/HCPCS: 80053; 80307; 83690; 96360; 99285; 74177; 80320; 81003; 82140; 83735; 84703; 85025; 99283; J3490